=== PATIENT | female | born 1980 | race Caucasian/White ===

== ENCOUNTER → 2017-09-11 10:02 | Outpatient (CLI) | payer BC, SELFPAY ==
[2017-09-11 10:34] LABS: Urine Pregnancy, HCG Qual. Negative (Negative)
[2017-09-11 10:53] LABS: Basophils % 0.4 % (0.1-2.0); Eosinophils # 0.3 K/mm3 (0.0-0.4); Eosinophils % 3.3 % (0.1-12.0); Hematocrit 42.9 % (37.0-47.0); Hemoglobin 13.9 g/dL (12.2-16.2); Lymphocytes # 2.6 K/mm3 (0.7-4.5); Lymphocytes % 31.4 K/mm3 (10-50); Mean Corpuscular HGB Conc 32.5 g/dL (31.8-35.4); Mean Corpuscular Hemoglobin 29.1 pg (27.0-31.2); Mean Corpuscular Volume 89.4 fl (81-99); Mean Platelet Volume 7.8 fl (7.4-10.4); Monocytes # 0.4 K/mm3 (0.1-1.0); Monocytes % 4.7 % (1.7-9.3); Neutrophils # 4.9 K/mm3 (1.8-7.8); Neutrophils % 60.3 % (37.0-80.0); Platelet Count 302 K/mm3 (142-424); Red Cell Distribution Width 15.3 % (11.5-17.5); White Blood Count 8.1 K/mm3 (4.8-10.8)
[2017-09-13 06:24] LABS: Testosterone,Free 0.8 pg/mL (0.0-4.2)
[2017-09-14 13:48] LABS: Testosterone, Total, LC/MS 29.7 ng/dL (10.0-55.0)
== END ==
PROVIDERS: Visit Provider Obstetrics & Gynecology
DX: Z01.818 Encounter for other preprocedural examination (principal)
CPT/HCPCS: 36415; 81025; 84402; 85025

== ENCOUNTER → 2018-02-06 08:37 | Outpatient (CLI) | payer BC, SELFPAY ==
--- NOTE | 2018-02-06 08:44 | MR_ITS ---
MR shoulder LT wo con HISTORY:Left shoulder pain with limited range of motion ITS.REASON: ACUTE PAIN OF LEFT SHOULDER ORDERING PHYSICIAN: Kenya Chicas PATIENT AGE: 37 years Comparison: None TECHNIQUE: Standard multiplanar multiecho sequences are performed without contrast. FINDINGS: There is a low-lying acromion with hypertrophic changes along the undersurface of the acromion laterally with resultant subacromial stenosis of 4 mm with impingement upon the supraspinatus tendon. There is thickening of the supraspinatus tendon with increased T2 signal consistent with tendinopathy/tendinosis. There is a small focal area of increased T2 signal involving the posterior lateral aspect of the supraspinatus tendon which could represent a small intrasubstance tear. No evidence of a full-thickness tear. There is a small amount fluid in the subcutaneous acromial region. The glenoid yr appear intact. The bicipital tendon is in place There is mild thickening of the infraspinatus tendon as well. The subscapularis and teres minor tendons are intact. IMPRESSION: 1. Subacromial stenosis with minimal hypertrophic change along the infra aspect of the acromion with impingement upon the supraspinatus tendon with tendinopathy/tendinosis of the supraspinatus tendon and possible small intrasubstance tear. 2. No evidence of full-thickness tear.
--- NOTE | 2018-02-06 13:41 | MM_ITS ---
MM Dig mamm BI DX w/CAD, US breast RT complete, US breast LT complete INDICATION: Follow-up abnormal mammogram, follow-up probably benign findings ORDERING PHYSICIAN: Kenya Chicas PATIENT AGE: 37 years COMPARISON: None TECHNIQUE: 12/05/2016, 12/18/2016 FINDINGS: There is average fibroglandular tissue. Right breast: Asymmetric density is noted in the upper outer aspect of the right breast. This does appear to compress out and is felt to represent fibroglandular tissue. There are multiple benign-appearing calcifications of the right breast with no discrete mass or malignant appearing microcalcification Right breast ultrasound: There is some ductal ectasia at 7:00 near the nipple and in the retroareolar region. No suspicious mass evident. Small nodes are present in the axilla. Left breast: Benign-appearing calcifications. Asymmetric density is present in the medial aspect of the left breast which does appear to compress out as fibroglandular tissue. On spot compression view there was an additional area of asymmetry more anterior and medial which is felt to be due to fibroglandular tissue and did partially compress out on additional spot view Left breast ultrasound: There is some ductal ectasia near the nipple in the retroareolar region. No suspicious abnormalities evident IMPRESSION: Benign findings of the right breast. Probably benign findings left breast regarding asymmetric density in the medial aspect of the left breast. Recommend 6 month mammographic follow-up on the left No convincing evidence of malignancy BI-RADS Category: 3 Probably Benign Finding Short Term Follow-up RECOMMENDED FOLLOW-UP: 6M - 6 MONTH FOLLOW-UP (A letter has been sent to the patient regarding results of the study.)
== END ==
PROVIDERS: PCP Family Medicine; Visit Provider Nurse Practitioner
DX: M25.512 Pain in left shoulder (principal); R92.8 Other abnormal and inconclusive findings on diagnostic imaging of breast
CPT/HCPCS: 73221; 76641; 77066

== ENCOUNTER → 2018-03-01 10:04 | Outpatient (CLI) | payer BC, SELFPAY ==
--- NOTE | 2018-03-01 10:07 | XR_ITS ---
XR shoulder LT min 2V COMPARISON: MRI scan left shoulder 02/06/2018 HISTORY: Chronic left shoulder pain TECHNIQUE: 3 views left shoulder FINDINGS: The clavicle is intact and the AC joint appears normal. There is a slightly lateral downsloping acromion process but the hypertrophic changes described along the undersurface of the acromium on MRI scan are not appreciated on this modality. The humeral head and glenoid appear normal. There are no soft tissue calcifications. IMPRESSION: Slightly lateral downsloping acromion process which could predispose to mild impingement syndrome, otherwise negative study.
== END ==
PROVIDERS: PCP Nurse Practitioner; Visit Provider Orthopaedic Surgery
DX: M25.512 Pain in left shoulder (principal)
CPT/HCPCS: 73030

== ENCOUNTER → 2018-05-30 12:28 | Outpatient (CLI) | payer BC, SELFPAY ==
--- NOTE | 2018-05-30 12:35 | XR_ITS ---
XR chest 2V HISTORY: ITS.REASON: LT CHEST PRESSURE ORDERING PHYSICIAN: Kenya Chicas PATIENT AGE: 37 years COMPARISON: None FINDINGS: The cardiomediastinal silhouette and pulmonary vascularity are within normal limits. The lungs are clear without infiltrates, suspicious nodules, or pleural effusions. No acute bony abnormalities. IMPRESSION: Negative chest, no acute finding
== END ==
PROVIDERS: PCP Nurse Practitioner; Visit Provider Nurse Practitioner
DX: R07.89 Other chest pain (principal); R00.2 Palpitations
CPT/HCPCS: 71046; 93005; 93225; 93226

== ENCOUNTER → 2018-06-10 07:19 | Outpatient (CLI) | payer BC, SELFPAY ==
--- NOTE | 2018-06-10 07:21 | NM_ITS ---
History and Indications: Hypertension, chronic tobacco use, family history, chest pain, shortness of breath, syncope and fatigue Procedure: Patient exercised on Beni protocol 7 minutes and 15 seconds, resting heart rate was 75 bpm resting blood pressure 145/85, with exercise maximum heart rate achieved was 1 66 bpm which is greater than 85% of the maximum predicted heart rate and the blood pressure was 158/85. Test was started due to chest discomfort which resolving the recovery. Patient has adequate exercise capacity achieved 7.1mets of workload on treadmill, the blood pressure response to exercise was abnormal. Electrocardiogram: Resting electrocardiogram showed sinus rhythm, with exercise there is less than 1.[address] segment depression noted from the baseline EKG. The EKG portion of the exercise Myoview is negative for ischemia. Cardiac stress and resting SPECT images: Cardiac stress and resting SPECT were obtained using technetium 99 Myoview 31.0 mCi stress and 10.5 mCi at rest. Gated SPECT further analysis and calculation of the ejection fraction also done. Cardiac stress and resting SPECT images show a mild fixed defect in the anterior wall with normal contractility in the gated SPECT is likely secondary to soft tissue attenuation, no reversible ischemia seen. Computer derived ejection fraction 44% with no regional wall motion abnormality, right ventricle is normal size and contractility. Conclusion: 1. The EKG portion of the exercise Myoview is negative for ischemia, patient has adequate exercise capacity achieved 7.1mets of workload on treadmill, the blood pressure response to exercise was abnormal, patient complained of chest pain with exercise relieved with rest. 2. No scintigraphic evidence of reversible ischemia seen at this level of exercise, computer derived ejection fraction is 64% with no regional wall motion abnormality, right ventricle is normal size and contractility.
--- NOTE | 2018-06-10 07:37 | HMH.ITSHM ---
Current Home Medications as stated by this patient Chichi Harrison or appliance service representative. [][facility]
== END ==
PROVIDERS: PCP Family Medicine; Visit Provider Family Medicine
DX: R07.89 Other chest pain (principal); R00.2 Palpitations
CPT/HCPCS: 78451; 93017; A9502

== ENCOUNTER → 2018-06-21 13:30 | Outpatient (CLI) | payer BC, SELFPAY ==
--- NOTE | 2018-06-21 13:33 | CA_ITS ---
PROCEDURE: 2-D M-mode and color Doppler study INDICATIONS FOR THE TEST: Chest pain+ COPD Heart Murmur Tobacco Smoking+ Palpitations+ Fatigue+ Syncope Edema Hypertension+Diabetes Mellitus Rheumatic Fever SOB+OLIVAS+Obesity Hyperlipidemia Family History HD+ Additional History Dizziness PATIENT INFORMATION HEIGHT: 60 WEIGHT: 220 GENDER: Female B/P: 122/87 2-D/M-MODE INTERPRETATION: 2-D MEASUREMENTS OBSERVED VALUES IN CMS Right Ventricular Dimension (RVDd) 2.0 Interventricular Septum (Thickness)(IVsd) 0.9 Left Ventricular Internal Dimensions(LVIDd) 4.1 Left Ventricular Posterior Wall (Thickness)(LVPWd) 0.9 Aortic Root 3.0 Aortic Cusp Separation 2.3 Left Atrial Dimensions (LAD) 3.4 2D 1. Left atrium is normal size, left ventricle is normal size, there is no concentric left ventricular hypertrophy, visually estimated ejection fraction 55% with no wall motion abnormality. 2. The right atrium and right ventricle are normal size and contractility. 3. The aortic, mitral and tricuspid valvular grossly normal. 4. The pulmonic valve is poorly visualized. 5. No significant pericardial effusion noted. DOPPLER INTERROGATION: Doppler interrogation of the aortic, mitral and tricuspid valvular presence of mild mitral and tricuspid regurgitation, tricuspid regurgitation jet velocity is inadequate for calculation of the right ventricular systolic pressure, diastolic parameters are within normal range. CONCLUSION: 1. Normal left ventricular size, preserved left ventricular systolic function, visually estimated ejection fraction 55% with no regional wall motion abnormality, diastolic parameters are within normal range. 2. Mild mitral and tricuspid regurgitation 3. No significant pericardial effusion.
== END ==
PROVIDERS: PCP Family Medicine; Visit Provider Nurse Practitioner
DX: R07.89 Other chest pain (principal); R00.2 Palpitations
CPT/HCPCS: 93306

== ENCOUNTER → 2018-10-16 10:02 | Outpatient (CLI) | payer BC, SELFPAY ==
--- NOTE | 2018-10-16 10:08 | MR_ITS ---
MR head/brain wo/w con HISTORY: Headache, visual changes with dizziness ITS.REASON: VISION CHANGES ORDERING PHYSICIAN: Joaquín Chaparro MD PATIENT AGE: 38 years Comparison: None TECHNIQUE: Standard multiplanar multiecho sequences are performed without and with gadolinium enhancement. FINDINGS: No midline shift, mass effect, intracranial hemorrhage, or hydrocephalus is evident. The cerebellopontine angles, cerebellum, and brainstem have an unremarkable appearance. No enhancing lesions are apparent. The pituitary, corpus callosum, optic chiasm, and craniocervical junction have an unremarkable appearance. There is normal ramirez-white matter differentiation. No intra or extra-axial mass is evident. No sinus air-fluid level or mastoid effusion. There is minimal mucosal thickening of left maxillary sinus. IMPRESSION: Essentially negative MRI of the brain without and with contrast
--- NOTE | 2018-10-16 11:20 | HMH.ITSHM ---
Current Home Medications as stated by this patient Chichi Harrison or retail representative. [][facility]
== END ==
PROVIDERS: PCP Family Medicine; Visit Provider Family Medicine
DX: H53.9 Unspecified visual disturbance (principal)
CPT/HCPCS: 70553; A9576

== ENCOUNTER → 2018-10-24 16:31 | Outpatient (CLI) | payer BC, SELFPAY | PROVIDERS: PCP Family Medicine; Visit Provider Family Medicine | DX: G47.33 Obstructive sleep apnea (adult) (pediatric) (principal); R06.83 Snoring; R40.0 Somnolence | CPT/HCPCS: 95806 ==

== ENCOUNTER → 2020-02-11 15:51 | Outpatient (CLI) | payer BC, SELFPAY ==
--- NOTE | 2020-02-11 15:56 | XR_ITS ---
PROCEDURE: XR SHOULDER LT MIN 2V CLINICAL INDICATION: PAIN COMPARISON: CR SHOULDCMLT XR shoulder LT min 2V from 03/01/2018 FINDINGS: No fracture or dislocation. No lytic or blastic change. There is normal mineralization. The joint spaces are well-preserved. No significant degenerative/arthritic changes. No erosive changes evident. Other findings:There is a small bone island in the humeral head on the left IMPRESSION: No acute findings. Dictated by: Andrew Hay MD 02/11/2020 16:03 Andrew Hay MD in [place] 02/11/2020 16:03
== END ==
PROVIDERS: PCP Nurse Practitioner; Visit Provider Nurse Practitioner
DX: M25.512 Pain in left shoulder (principal)
CPT/HCPCS: 73030

== ENCOUNTER → 2020-03-02 12:21 | Outpatient (CLI) | payer BC, SELFPAY ==
--- NOTE | 2020-03-02 12:25 | XR_ITS ---
PROCEDURE: XR SHOULDER LT MIN 2V CLINICAL INDICATION: left shoulder pain COMPARISON: CR SHOULDCMLT XR shoulder LT min 2V from 03/01/2018 CR XR SHOULDER LT MIN 2V from 02/11/2020 FINDINGS: No fracture or dislocation. No lytic or blastic change. There is normal mineralization. The AC joint has an unremarkable appearance. There are mild osteoarthritic changes of the glenohumeral joint. No significant subacromial stenosis Other findings:None. IMPRESSION: Mild osteoarthritis of the glenohumeral joint Dictated by: Andrew Hay MD 03/02/2020 16:31 Andrew Hay MD in [place] 03/02/2020 16:31
== END ==
PROVIDERS: PCP Nurse Practitioner; Visit Provider Orthopaedic Surgery
DX: M25.512 Pain in left shoulder (principal)
CPT/HCPCS: 73030

== ENCOUNTER → 2020-06-01 07:58 | Outpatient (CLI) | payer BC, SELFPAY ==
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
== END ==
PROVIDERS: PCP Nurse Practitioner; Visit Provider Orthopaedic Surgery
DX: M25.512 Pain in left shoulder (principal); G89.29 Other chronic pain
CPT/HCPCS: 73221

== ENCOUNTER → 2020-10-08 10:29 | Outpatient (CLI) | payer BC, SELFPAY ==
--- NOTE | 2020-10-08 10:33 | MR_ITS ---
PROCEDURE: MR HEAD/BRAIN WO/W CON CLINICAL INDICATION: TRANSIENT VISION DISTURBANCE OF BOTH EYES TECHNIQUE: Routine multiplanar multi echo sequences are performed without gadolinium enhancement. FINDINGS: No midline shift, mass effect, intracranial hemorrhage, or hydrocephalus. No evidence of acute infarction. The cerebellopontine angles, cerebellum, and brainstem have an unremarkable appearance. Unremarkable appearing white matter. No enhancing lesions. The hippocampal gyri have an unremarkable appearance. The pituitary, optic chiasm, corpus callosum, and craniocervical junction have an unremarkable appearance. Unremarkable appearing orbits. No mastoid effusion or sinus air-fluid level. IMPRESSION: Negative MRI of the brain without and with contrast. Dictated by: Andrew Hay MD 10/11/2020 10:16 Andrew Hay MD in [place] 10/11/2020 10:16
--- NOTE | 2020-10-08 10:33 | MR_ITS ---
PROCEDURE: MR ANGIO HEAD WO CON CLINICAL INDICATION: TRANSIENT VISION DISTURBANCE OF BOTH EYES COMPARISON: No exams were available for comparison TECHNIQUE: 3D [id number] images are obtained without contrast with multi slab reformats FINDINGS: No aneurysm, AVM, or major intracranial occlusive process is evident. There is persistent origin of the right posterior cerebral artery with a small proximal left posterior cerebral artery and a prominent left posterior communicating artery. IMPRESSION: No aneurysm AVM or major intracranial occlusive process apparent. Dictated by: Andrew Hay MD 10/11/2020 10:24 Andrew Hay MD in [place] 10/11/2020 10:24
== END ==
PROVIDERS: PCP Nurse Practitioner; Visit Provider Nurse Practitioner
DX: H53.8 Other visual disturbances
CPT/HCPCS: 70544; 70553; A9576

== ENCOUNTER → 2020-10-15 14:49 | Outpatient (CLI) | payer BC, SELFPAY ==
--- NOTE | 2020-10-15 14:51 | MM_ITS ---
PROCEDURE INFORMATION: Exam: MG Screening 3D Mammography Exam date and time: 10/15/2020 2:51 PM Age: 40 years old Clinical indication: Encounter for screening mammogram for malignant neoplasm of breast TECHNIQUE: Imaging protocol: Screening tomosynthesis and 2D mammography including computer-aided detection (CAD) when performed. COMPARISON: 1. MG DXBI MM Dig mamm BI DX w/CAD 02/06/2018 1:56 PM 2. MG [id number] DIG MAMM-DX UNI A/VW-RT W/CAD 12/18/2016 1:10 PM FINDINGS: MAMMOGRAPHY: Breast composition: The breast tissue is heterogeneously dense, which may obscure small masses. Mass: None. Architectural distortion: None. Calcifications: No suspicious calcifications. Asymmetric density: None. Skin thickening: None. Axillary adenopathy: None. IMPRESSION: No mammographic evidence of malignancy. Annual screening is recommended unless otherwise clinically indicated. ASSESSMENT: BI-RADS Category 1: Negative
== END ==
PROVIDERS: PCP Nurse Practitioner; Visit Provider Nurse Practitioner
DX: Z12.31 Encounter for screening mammogram for malignant neoplasm of breast (principal)
CPT/HCPCS: 77063; 77067

== ENCOUNTER 2021-01-18 14:43 | Emergency (ER) | payer BC, SELFPAY ==
[2021-01-18 15:25] VITALS: BP 167/103; PULSE 94; RESP 18; TEMP 37.2; O2SAT 97; BMI 43.9
[2021-01-18 15:46] LABS: Adenovirus,PCR Not Detected (NotDetected); Bordetella Pertussis Not Detected (NotDetected); Chlamydophila Pneumoniae, PCR Not Detected (NotDetected); Coronavirus 19, PCR Not Detected (NotDetected); Coronavirus 229E Not Detected (NotDetected); Coronavirus NL63 Not Detected (NotDetected); Coronavirus OC43 Not Detected (NotDetected); Coronovirus HKU1,PCR Not Detected (NotDetected); Human Metapneumovirus Not Detected (NotDetected); Influenza A, PCR Not Detected (NotDetected); Influenza AH1, 2009 Not Detected (NotDetected); Influenza AH1, PCR Not Detected (NotDetected); Influenza AH3,PCR Not Detected (NotDetected); Influenza B, PCR Not Detected (NotDetected); Mycoplasma Pneumoniae, PCR Not Detected (NotDetected); Parainfluenza 1, PCR Not Detected (NotDetected); Parainfluenza 2, PCR Not Detected (NotDetected); Parainfluenza 3, PCR Not Detected (NotDetected); Parainfluenza 4, PCR Not Detected (NotDetected); Respiratory Syncytial Virus Not Detected (NotDetected)
[2021-01-18 15:49] LABS: UTC Strep Screen (Rapid) Negative (Negative)
--- NOTE | 2021-01-18 16:28 | HMH.EDUTC ---
[facility] [place] Disposition Clinical Impression: Bronchitis Pharyngitis Qualifiers: Pharyngitis/tonsillitis etiology: unspecified etiology Qualified Code(s): J02.9 - Acute pharyngitis, unspecified Disposition: Home, Self-Care Condition on Discharge: Good Instructions: DI for COVID-19 (Suspected or Confirmed ), Preventing the Spread of Coronavirus Discharge Instructions Additional Instructions: Drink plenty of fluids. Take tylenol or ibuprofen for pain or fever. Take the medications as directed. Follow up with your regular doctor. GO TO THE ER FOR ANY WORSENING SYMPTOMS Quarantine until you know the results of your covid-19 test. If it is positive, the health department should call you and give you further instructions about your length of Quarantine and other things. Notify your school or workplace of your results and follow their instructions regarding return to work/school. Prescriptions: Benzonatate [Tessalon Perle 100mg Cap] 100 mg PO TIDP PRN #30 cap PRN Reason: Cough Transmission Status: Received by [id number] Azithromycin [Z-Ricardo 250mg Tab*] 250 mg PO UD DOSE PK #6 tab Transmission Status: Received by [id number] Referrals: Kenya Chicas APRN [Primary Care Provider] - Forms: Work/School Release Time of Disposition: 16:36 Medical Decision Making - Medical Records Medical records reviewed: No: I reviewed the patient's medical records. - Slim Inquiry Pt receiving controlled substance: No Vital Signs: 01/18/21 15:25 01/18/21 16:41 Temperature 99.0 F 99.0 F Temperature Source Oral Pulse Rate 94 H Pulse Rate [Right Brachial] 94 H Respiratory Rate 18 18 Blood Pressure 167/103 H Blood Pressure [Right Arm] 167/103 H Blood Pressure Mean [Right Arm] 124 Blood Pressure Source [Right Arm] Automatic Cuff Blood Pressure Position [Right Arm] Sitting 02 Sat by Pulse Oximetry 97 Oxygen Delivery Method Room Air - Lab Data Lab Results 01/18/21 15:35: Chlamy pneumoniae PCR Not detected, Adenovirus (PCR) Not detected, B. pertussis DNA (PCR) Not detected, Coronavirus OC43 (PCR) Not detected, Coronavirus HKU1 (PCR) Not detected, Coronavirus 229E (PCR) Not detected, SARS-CoV-2 (PCR) Not detected, Coronavirus NL63 (PCR) Not detected, Human Metapneumovir PCR Not detected, Influenza A (H1) PCR Not detected, Influ A (H1N1/09) PCR Not detected, Influenza A (H3) PCR Not detected, Influenza Type A (PCR) Not detected, Influenza Type B (PCR) Not detected, M. pneumoniae (PCR) Not detected, Parainfluenza 1 (PCR) Not detected, Parainfluenza 2 (PCR) Not detected, Parainfluenza 3 (PCR) Not detected, Parainfluenza 4 (PCR) Not detected, RSV (PCR) Not detected, Entero/Rhino (PCR) Detected A 01/18/21 15:43: Strep Scn Rapid Clinic Negative Orders (Tests/Meds): ORDERS Category Date Time Status Strep Screen Confirmation Stat Micro 01/18/21 15:43 Received [facility] [place] HPI - General Stated complaint: sor throat, weakness, congestion Time Seen by Provider: 01/18/21 16:28 Mode of Arrival: Ambulatory Source of Information: Patient Limitations: No Limitations Description of Symptoms (Recalled from Triage Doc. by RN): PATIENT C/O WEAKNESS, SORE THROAT, AND BODY ACHES SINCE SUNDAY MORNING. RECENTLY EXPOSED TO RHINOVIRUS HEENT Symptoms (Recalled from RN notes): Yes Resp Symptoms (Recalled from RN notes): No Skin Symptoms (Recalled from RN notes): No MS Symptoms (Recalled from RN notes): No Functional Status (Recalled from RN notes): WNL - History of Present Illness Provider Complaint: She states that she has felt bad for the past 2 days. She has had cough, congestion, body ache and sore throat. She has had the first shot of the pfizer vaccine. Her next shot is due next week. - Related Data Home Medications Medication Instructions Recorded Confirmed lisinopril 10 mg tablet 10 mg PO DAILY 06/27/18 06/10/20 sertraline 100 mg tablet 150 mg PO DAILY tab 06/27/18 06/10/20 metoprolol succinate
[2021-01-18 16:41] VITALS: BP 167/103; PULSE 94; RESP 18; TEMP 37.2; O2SAT 97
[2021-01-18 20:29] LABS: Rhinovirus/Enterovirus Detected (NotDetected)
== END 2021-01-18 16:45 | disposition home or self-care (01) ==
PROVIDERS: Emergency Provider Nurse Practitioner Family; PCP Nurse Practitioner
DX: J02.9 Acute pharyngitis, unspecified (principal); I10 Essential (primary) hypertension; F33.1 Major depressive disorder, recurrent, moderate; F17.210 Nicotine dependence, cigarettes, uncomplicated; Z88.0 Allergy status to penicillin
CPT/HCPCS: 87581; 87633; 87798; 87880; 99203; G0463

== ENCOUNTER → 2021-05-31 12:46 | Outpatient (CLI) | payer BC, SELFPAY | PROVIDERS: PCP Nurse Practitioner; Visit Provider Nurse Practitioner | DX: U07.1 COVID-19 (principal) | CPT/HCPCS: C9803; U0003; U0005 ==

== ENCOUNTER 2021-10-31 17:31 | Emergency (ER) | payer BC, SELFPAY ==
[2021-10-31 18:32] VITALS: BP 158/72; PULSE 85; RESP 18; TEMP 37.1; O2SAT 98; BMI 41.5
--- NOTE | 2021-10-31 18:36 | HMH.EDUTC ---
[facility] Clinical Impression: Female hirsutism UTI (urinary tract infection) Qualifiers: Urinary tract infection type: site unspecified Hematuria presence: with hematuria Qualified Code(s): N39.0 - Urinary tract infection, site not specified Disposition: Home, Self-Care Condition on Discharge: Good Instructions: Urinary Tract Infection, Urine Culture, DI for Urinary Tract Infection (UTI), Phenazopyridine Additional Instructions: Drink plenty of fluids. Take tylenol or ibuprofen for pain or fever. Take the medications as directed. Follow up with your regular doctor. GO TO THE ER FOR ANY WORSENING SYMPTOMS The pyridium will make your urine turn orange, this is an expected side effect. It will stain your clothes if it comes into contact with them. We will culture the urine. That will tell what bacteria is causing your infection and which antibiotics will treat it best. Sometimes the first antibiotic we prescribe turns out to not work against different bacteria. So, make sure you follow up within 3 days if you are not getting better. Prescriptions: Ondansetron [Zofran 4mg ODT] 4 mg PO Q8HP PRN #20 tab PRN Reason: Nausea Transmission Status: Received by [id number] Ciprofloxacin HCl [Cipro 500mg Tab] 500 mg PO BID 7 Days #14 tab Transmission Status: Received by [id number] Phenazopyridine HCl [Pyridium 200mg Tablet] 200 pow PO TID #6 tab Transmission Status: Received by [id number] Referrals: Kenya Chicas APRN [Primary Care Provider] - Forms: Work/School Release Time of Disposition: 18:41 Medical Decision Making - Medical Records Medical records reviewed: No: I reviewed the patient's medical records. - Slim Inquiry Pt receiving controlled substance: No Vital Signs: 10/31/21 18:32 10/31/21 18:45 Temperature 98.7 F 98.7 F Temperature Source Oral Pulse Rate 85 Pulse Rate [Left] 85 Respiratory Rate 18 18 Blood Pressure 158/72 H Blood Pressure [Right Arm] 158/72 H Blood Pressure Mean [Right Arm] 100 02 Sat by Pulse Oximetry 98 - Lab Data Lab results reviewed: Yes: I reviewed the patient's lab results. Lab Results 10/31/21 18:38: Urine Color Yellow, Urine Appearance Cloudy, Urine pH 5.5, Ur Specific [place] 1.025, Urine Protein 1+, Urine Glucose (UA) Negative, Urine Ketones Negative, Urine Blood 4+, Urine Nitrate Negative, Urine Bilirubin Negative, Urine Urobilinogen 0.2, Ur Leukocyte Esterase 1+ A Orders (Tests/Meds): ORDERS Category Date Time Status Urine Culture Stat Micro 10/31/21 18:26 Results [facility] - General Stated complaint: POSSIBLE BLADDER INFECTION Time Seen by Provider: 10/31/21 18:36 Description of Symptoms (Recalled from Triage Doc. by RN): patient comes in for possible bladder infection. patient complains of burning and dysuria. symptoms began yesterday HEENT Symptoms (Recalled from RN notes): No Resp Symptoms (Recalled from RN notes): No Skin Symptoms (Recalled from RN notes): No MS Symptoms (Recalled from RN notes): No Functional Status (Recalled from RN notes): wnl - History of Present Illness Provider Complaint: She states that for the past 2 days she has had worsening dysuria, urinary frequency and low back pain. - Related Data Home Medications Medication Instructions Recorded Confirmed cetirizine 10 mg tablet 10 mg PO tab 07/04/21 07/04/21 valsartan 320 1 tab PO tab 07/04/21 07/04/21 mg-hydrochlorothiazide 12.5 mg tablet Previous Rx's Medication Instructions Recorded omeprazole 40 mg capsule,delayed 40 mg PO DAILY #30 cap 06/27/18 release Ciprofloxacin HCl [Cipro 500mg 500 mg PO BID 7 Days #14 tab 10/31/21 Tab] Ondansetron [Zofran 4mg ODT] 4 mg PO Q8HP PRN #20 tab 10/31/21 Phenazopyridine HCl [Pyridium 200 pow PO TID #6 tab 10/31/21 200mg Tablet] Allergies Allergy/AdvReac Type Severity Reaction Status Date / Time Penicillins Allergy Mi
[2021-10-31 18:45] VITALS: BP 158/72; PULSE 85; RESP 18; TEMP 37.1
[2021-10-31 19:06] LABS: Apearance,Urine Cloudy (Clear); Color,Urine Yellow (Yellow); PH,Urine 5.5 (5.0-8.5)
[2021-10-31 19:07] LABS: Bilirubin,Urine Negative (Negative); Blood, Urine 4+ (Negative); Glucose,Urine (UA) Negative (Negative); Ketones,Urine Negative (Negative); Protein,Urine 1+ (Negative); Specific Gravity, Urine 1.025 (1.005-1.030); UTC Leukocyte Esterase,Urine 1+ (Negative); UTC Nitrate,Urine Negative (Negative); Urobilinogen,Urine 0.2 EU/dl (0.2)
== END 2021-10-31 18:46 | disposition home or self-care (01) ==
PROVIDERS: Emergency Provider Nurse Practitioner Family; PCP Nurse Practitioner
DX: L68.0 Hirsutism (principal); N39.0 Urinary tract infection, site not specified; Z88.0 Allergy status to penicillin; I10 Essential (primary) hypertension; F32.A Depression, unspecified
CPT/HCPCS: 81003; 87086; 87088; 87186; 99212; G0463

== ENCOUNTER 2022-01-18 18:28 | Emergency (ER) | payer BC, SELFPAY ==
--- NOTE | 2022-01-18 19:22 | EXP.UTC ---
Discharge Plan Disposition Patient Disposition: Home, Self-Care Condition: Good Prescriptions Prescriptions: New azithromycin [Zithromax] 250 mg tablet 250 mg PO UD DOSE PK Qty: 6 0RF Rx Instructions: Take two (2) tablets today, then one (1) tablet days #2 thru #5 benzonatate [benzonatate] 100 mg capsule 100 mg PO TIDP PRN (Reason: Cough) Qty: 30 0RF methylprednisolone 4 mg Tablets,Dose Pack 4 mg PO DIRECTED Qty: 21 0RF No Action omeprazole 40 mg capsule,delayed release(DR/EC) 40 mg PO DAILY Qty: 30 3RF cetirizine 10 mg tablet 10 mg PO Label Comments: TAKE 1 TABLET BY MOUTH EVERY DAY valsartan-hydrochlorothiazide 320-12.5 mg tablet 1 tab PO Label Comments: TAKE 1 TABLET BY MOUTH EVERY DAY phenazopyridine 200 MG tablet 200 pow PO TID Qty: 6 0RF ciprofloxacin HCl 500 MG tablet 500 mg PO BID 7 Days Qty: 14 0RF ondansetron 4 MG tablet,disintegrating 4 mg PO Q8HP PRN (Reason: Nausea) Qty: 20 0RF Referrals Follow up/Referrals: Kenya Chicas APRN [Primary Care Provider] - See instructions Activity Restrictions/Add. Instructions Additional Instructions/Restrictions: Drink plenty of fluids. Take tylenol or ibuprofen for pain or fever. Take the medications as directed. Follow up with your regular doctor. GO TO THE ER FOR ANY WORSENING SYMPTOMS Clinical Impressions Clinical Impression: Sinusitis Instructions Patient Instructions: Sinusitis, DI for Sinusitis Discharge ED Provider: Rene Hutchison [facility] General Stated complaint: SOB,Cough Congestion Time Seen by Provider: 01/18/22 19:22 History of Present Illness Provider Complaint: She c/o cough, chest congestion and malaise for the past 2 days. Related Data Home Medications Medication Instructions Recorded Confirmed cetirizine 10 mg tablet 10 mg PO 07/04/21 07/04/21 valsartan 320 1 tab PO 07/04/21 07/04/21 mg-hydrochlorothiazide 12.5 mg tablet Previous Rx's Medication Instructions Recorded omeprazole 40 mg capsule,delayed 40 mg PO DAILY #30 caps 06/27/18 release ciprofloxacin HCl 500 mg tablet 500 mg PO BID 7 days #14 tabs 10/31/21 ondansetron 4 mg disintegrating 4 mg PO Q8HP PRN Nausea #20 tabs 10/31/21 tablet phenazopyridine 200 mg tablet 200 pow PO TID #6 tabs 10/31/21 azithromycin 250 mg tablet 250 mg PO UD DOSE PK #6 tabs 01/18/22 (Zithromax) benzonatate 100 mg capsule 100 mg PO TIDP PRN Cough #30 caps 01/18/22 methylprednisolone 4 mg tablets in 4 mg PO DIRECTED #21 tabs 01/18/22 a dose pack Allergies Allergy/AdvReac Type Severity Reaction Status Date / Time Penicillins Allergy Mild Hives Verified 01/18/22 19:42 PFSH PFSH Social History Smoking Status: Former smoker pack-years: 23 second hand exposure: Yes alcohol intake: never substance use type: denies use current occupational status: employed Travel in the last 8 weeks: None household members: spouse housing: house current occupation: [employer] current occupational exposures/hazards: No caffeine: Yes ROS Obtained: Yes All systems reviewed & no additional complaints except as documented Constitutional Constitutional: Reports chills and Reports fever(s) Eyes Eyes: Denies eye discharge ENT Ears, Nose, Mouth, and Throat: Reports as per HPI Cardiovascular Cardiovascular: Denies chest pain Respiratory Respiratory: Denies chest congestion and Reports cough Gastrointestinal Gastrointestingal: Reports nausea; Denies abdominal pain, constipation, cramping, diarrhea or vomiting Musculoskeletal Musculoskeletal: Denies arthralgias Integumentary/Breasts Skin/Breast: Denies rash Neurologic Neurologic: Denies paresthesias Physical Exam General General appearance: alert and in no apparent distress Head Head exam: atraumatic, normocephalic and normal inspection Eye Eye exam: Present normal appea
[2022-01-18 19:40] VITALS: BP 120/80; PULSE 92; RESP 18; TEMP 36.8; O2SAT 100; BMI 43.0
[2022-01-18 20:10] VITALS: BP 120/80; PULSE 92; RESP 18; TEMP 36.8
== END 2022-01-18 20:11 | disposition home or self-care (01) ==
PROVIDERS: Emergency Provider Nurse Practitioner Family; PCP Nurse Practitioner
DX: J32.9 Chronic sinusitis, unspecified (principal)
CPT/HCPCS: 96372; 99212; G0463

== ENCOUNTER → 2022-02-07 08:22 | Outpatient (CLI) | payer BC, SELFPAY ==
[2022-02-07 18:46] LABS: Basophils # 0.1 K/mm3 (0-0.2); Basophils % 1.1 % (0.1-2.0); Eosinophils # 0.2 K/mm3 (0.0-0.4); Eosinophils % 2.2 % (0.1-12.0); Hematocrit 44.2 % (37.0-47.0); Hemoglobin 14.1 g/dL (12.2-16.2); Lymphocytes # 2.4 K/mm3 (0.7-4.5); Lymphocytes % 26.1 % (10-50); Mean Corpuscular HGB Conc 31.8 g/dL (31.8-35.4); Mean Corpuscular Hemoglobin 30.2 pg (27.0-31.2); Mean Corpuscular Volume 94.9 fl (81-99); Mean Platelet Volume 9.4 fl (7.4-10.4); Monocytes # 0.4 K/mm3 (0.1-1.0); Monocytes % 3.9 % (1.7-9.3); Neutrophils # 6.1 K/mm3 (1.8-7.8); Neutrophils % 66.7 % (37.0-80.0); Platelet Count 401 K/mm3 (142-424); Red Blood Count 4.65 M/mm3 (4.20-5.40); Red Cell Distribution Width 14.2 % (11.5-17.5); White Blood Count 9.1 K/mm3 (4.8-10.8)
[2022-02-07 18:47] LABS: Alanine Aminotransferase 23 U/L (12-78); Albumin Level 3.6 g/dl (3.5-5.0); Albumin/Globulin Ratio 1.1 (1.1-1.8); Alkaline Phosphatase 91 U/L (38-126); Anion Gap 11.6 mEq/L (5-15); Aspartate Amino Transferase 24 U/L (14-36); Blood Urea Nitrogen 8 mg/dl (7-17); Calcium 9.1 mg/dl (8.4-10.2); Carbon Dioxide 27 mmol/L (22.0-30.0); Chloride 104 mmol/L (98-107); Chol/HDL Ratio 5.8 (1-3.5); Cholesterol 220 mg/dl (140-200); Estimated Glomerular Filt Rate 110 ml/min (>60); GFR (African American) 133 ML/MIN (>60); Globulin 3.2 g/dL (1.3-3.2); Glucose 106 mg/dl (74-100); HDL Cholesterol 38 mg/dl (40-60); Potassium 4.6 mmoL/L (3.5-5.1); Sodium 138 mmol/L (136-145); Total Protein,Serum 6.8 g/dl (6.3-8.2); Triglycerides 207 mg/dl (30-150); VLDL Cholesterol 41 mg/dL (0-40)
[2022-02-07 18:51] LABS: Bilirubin,Total < 0.1 mg/dl (0.2-1.3)
[2022-02-07 18:58] LABS: Direct LDL Cholesterol 148.98 mg/dL (100-129)
[2022-02-07 19:18] LABS: Thyroid Stimulating Hormone 1.54 uIU/mL (0.465-4.68)
[2022-02-07 19:37] LABS: Vitamin B12 694 pg/mL (239-931)
[2022-02-13 14:10] LABS: 1,25 Dihydroxy Vitamin D 31 pg/mL (.); 1,25-Dihydroxy, Vitamin D-2 <10 pg/mL (.); 1,25-Dihydroxy, Vitamin D-3 31 pg/mL (.)
== END ==
PROVIDERS: PCP Nurse Practitioner; Visit Provider Nurse Practitioner
DX: I10 Essential (primary) hypertension (principal); R73.01 Impaired fasting glucose; E66.9 Obesity, unspecified; Z68.41 Body mass index [BMI] 40.0-44.9, adult; Z79.84 Long term (current) use of oral hypoglycemic drugs
CPT/HCPCS: 80053; 80061; 82607; 82652; 84443; 85025

== ENCOUNTER → 2022-02-23 12:50 | Outpatient (CLI) | payer BC, SELFPAY ==
--- NOTE | 2022-02-23 12:51 | MM_ITS ---
PROCEDURE INFORMATION: Exam: MG Bilateral Screening 3D Mammography Exam date and time: 02/23/2022 12:55 PM Age: 41 years old Clinical indication: Screening examination TECHNIQUE: Imaging protocol: Bilateral Screening tomosynthesis and 2D mammography including computer-aided detection (CAD) when performed. COMPARISON: 1. MG MM DIG SCREENING MAMM BI W/CAD 10/15/2020 2:57 PM 2. MG DXBI MM Dig mamm BI DX w/CAD 02/06/2018 1:56 PM FINDINGS: MAMMOGRAPHY: Breast composition: There are scattered areas of fibroglandular density. Mass: None. Architectural distortion: None. Calcifications: No suspicious calcifications. Asymmetric density: None. Skin thickening: None. Axillary adenopathy: None. IMPRESSION: No mammographic evidence of malignancy. Annual screening is recommended unless otherwise clinically indicated. ASSESSMENT: BI-RADS Category 1: Negative
== END ==
PROVIDERS: PCP Nurse Practitioner; Visit Provider Nurse Practitioner
DX: Z12.31 Encounter for screening mammogram for malignant neoplasm of breast (principal)
CPT/HCPCS: 77063; 77067

== ENCOUNTER 2022-03-16 07:40 | Day surgery (SDC) | payer BC, SELFPAY ==
[2022-02-27 08:11] VITALS: BMI 42.5
[2022-03-16 08:10] VITALS: BP 114/71; PULSE 77; RESP 18; TEMP 36.2; O2SAT 95
[2022-03-16 08:20] LABS: Urine Pregnancy, HCG Qual. Negative (Negative)
--- NOTE | 2022-03-16 08:34 | EXP.ANES.CKL ---
[facility] Medical History Gastroesophageal reflux disease Hyperlipidemia Hypertension Obesity Tobacco dependence syndrome Surgical History History of appendectomy History of History of colonoscopy History of surgery of uterus Surgical history of tubal ligation Family History Other Cancer Coronary artery disease Diabetes Social History Smoking Status: Former smoker pack-years: 23 second hand exposure: Yes alcohol intake: never substance use type: denies use current occupational status: employed Travel in the last 8 weeks: Inside the [place] household members: spouse housing: house current occupation: [employer] current occupational exposures/hazards: No caffeine: Yes special idalia needs: No agree to transfusion: No do you feel safe at home: Yes victim of physical abuse: No victim of emotional abuse: No victim of sexual abuse: No would you like helpful sources: No [facility] Anesthesia Checklist Patient Identification Patient Identification: Verbal (Name & ) Structural Data Admitted From: Home Planned Operative Procedure/s: egd,colonoscopy Consent for Planned Operative Procedure(s) Verified: Yes Additional verifications Anesthesia Reactions: No Hx Blood Transfusions: No Blood Transfusion Reaction: No Airway Assessment TMJ Mobility Assessed: Yes Dentition: Good Dentition Neurological Assessment Level of Consciousness: Awake, Alert and Appropriate Anesthesia Plan Anesthesia Risk discussed: Yes Anesthesia Plan: Verified ASA Class: II Anesthesia Type: MAC
[2022-03-16 08:53] VITALS: O2SAT 95
--- NOTE | 2022-03-16 09:13 | HMH.SCOPE ---
Procedure: Date: 03/16/22 Patient Date of :: 1980 Procedure Performed:: EGD Indications:: Chronic GERD Performing Provider:: Verito Sage MD Referring Provider:: Kenya Chicas APRN Sedation:: Propofol Procedure:: The gastroscope was gently passed through the incisoral orifice into the oral cavity and under direct visualization the esophagus was intubated. The endoscope was passed down the esophagus, through the stomach, and into the duodenum. Color, texture, mucosa, and anatomy of the esophagus, stomach, and duodenum were carefully examined with the scope. Findings:: Oropharynx: normal Esophagus: normal EG Junction: intact at 40 cm, mild grade A reflux esophagitis Cardia: normal Fundus: normal Body: normal Antrum: normal Duodenal bulb: normal Duodenum (second and third portion): normal Impression: Mild grade A reflux esophagitis Recommendations:: Conservative therapy with PPI as needed Complications:: None Estimated blood obtained (mL): 0
--- NOTE | 2022-03-16 09:17 | HMH.SCOPE ---
Procedure: Date: 03/16/22 Patient Date of :: 1980 Procedure Performed:: Screening colonoscopy Indications:: Colon cancer screening Performing Provider:: Verito Sage MD Referring Provider:: Kenya Chicas APRN Sedation:: Propofol Procedure:: After placing the patient in the left lateral decubitus position, the colonoscopy was gently inserted into the rectum and under direct visualization advanced to the cecum which was identified by transillumination in the right lower quadrant, identification of the ileocecal valve, appendiceal orifice, and cecal strap. Color, texture, mucosa, and anatomy of the colon were carefully examined with the scope. Findings:: Anal canal: normal Rectum: normal Sigmoid colon: normal without polyps or inflammatory changes Descending colon: normal mucosa, 0.5 adenomatous polyp identified, removed with use of snare Splenic flexure: normal Transverse colon: normal without polyps or inflammatory changes Hepatic flexure: normal Ascending colon: normal without polyps or inflammatory changes Cecum: normal Terminal ileum: not visualized Impression: Polyp, decending colon Specimens:: Polyp from descending colon Recommendations:: Repeat follow up examination in about THREE years or so, sooner if clinically indicated. Complications:: None Estimated blood obtained (mL): 0
[2022-03-16 09:27] VITALS: BP 100/64; PULSE 94; RESP 16; TEMP 36.6; O2SAT 95
[2022-03-16 09:34] VITALS: BP 98/64; PULSE 82; RESP 16; TEMP 36.6; O2SAT 93
[2022-03-16 09:37] VITALS: BP 104/73; PULSE 76; RESP 18; TEMP 36.6; O2SAT 97
[2022-03-16 09:55] VITALS: BP 101/64; PULSE 65; RESP 18; TEMP 36.6; O2SAT 99
[2022-03-16 18:29] LABS: POC Glucose,Bedside 115 (70-110)
== END 2022-03-16 09:55 | disposition home or self-care (01) ==
PROVIDERS: PCP Nurse Practitioner; Visit Provider Internal Medicine Gastroenterology
PROC: 0DJ08ZZ Inspection of Upper Intestinal Tract, Via Natural or Artificial Opening Endoscopic (ICD-10-PCS; CPT 43235; principal; 2022-03-16 09:00)
DX: Z12.11 Encounter for screening for malignant neoplasm of colon (principal); K63.5 Polyp of colon; Z80.0 Family history of malignant neoplasm of digestive organs; K21.00 Gastro-esophageal reflux disease with esophagitis, without bleeding
CPT/HCPCS: 43235; 45385; 81025; 82962; 88305

== ENCOUNTER → 2022-05-08 10:00 | Outpatient (CLI) | payer BC, SELFPAY ==
[2022-05-08 18:53] LABS: Alanine Aminotransferase 24 U/L (12-78); Albumin Level 3.6 g/dl (3.5-5.0); Albumin/Globulin Ratio 1.3 (1.1-1.8); Alkaline Phosphatase 66 U/L (38-126); Anion Gap 8.3 mEq/L (5-15); Aspartate Amino Transferase 23 U/L (14-36); Bilirubin,Total 0.2 mg/dl (0.2-1.3); Blood Urea Nitrogen 14 mg/dl (7-17); Calcium 9.1 mg/dl (8.4-10.2); Carbon Dioxide 25 mmol/L (22.0-30.0); Chloride 108 mmol/L (98-107); Chol/HDL Ratio 5.1 (1-3.5); Cholesterol 177 mg/dl (140-200); Estimated Glomerular Filt Rate 92 ml/min (>60); GFR (African American) 111 ML/MIN (>60); Globulin 2.8 g/dL (1.3-3.2); Glucose 111 mg/dl (74-100); HDL Cholesterol 35 mg/dl (40-60); Potassium 4.3 mmoL/L (3.5-5.1); Sodium 137 mmol/L (136-145); Total Protein,Serum 6.4 g/dl (6.3-8.2); Triglycerides 150 mg/dl (30-150); VLDL Cholesterol 30 mg/dL (0-40)
[2022-05-08 19:04] LABS: Direct LDL Cholesterol 119.34 mg/dL (100-129)
== END ==
PROVIDERS: PCP Nurse Practitioner; Visit Provider Nurse Practitioner
DX: E78.5 Hyperlipidemia, unspecified (principal); E11.9 Type 2 diabetes mellitus without complications; I10 Essential (primary) hypertension; Z79.84 Long term (current) use of oral hypoglycemic drugs
CPT/HCPCS: 80053; 80061

== ENCOUNTER → 2022-07-05 11:30 | Outpatient (CLI) | payer BC, SELFPAY | PROVIDERS: PCP Nurse Practitioner; Visit Provider Nurse Practitioner | DX: U07.1 COVID-19 (principal); J06.9 Acute upper respiratory infection, unspecified; J02.9 Acute pharyngitis, unspecified | CPT/HCPCS: C9803; U0003; U0005 ==

== ENCOUNTER → 2022-08-16 19:15 | Outpatient (CLI) | payer BC, SELFPAY ==
[2022-08-16 17:59] LABS: Basophils # 0.1 K/mm3 (0-0.2); Basophils % 0.6 % (0.1-2.0); Eosinophils # 0.3 K/mm3 (0.0-0.4); Eosinophils % 2.8 % (0.1-12.0); Hematocrit 44.9 % (37.0-47.0); Hemoglobin 14.5 g/dL (12.2-16.2); Lymphocytes # 2.6 K/mm3 (0.7-4.5); Lymphocytes % 27.1 % (10-50); Mean Corpuscular HGB Conc 32.3 g/dL (31.8-35.4); Mean Corpuscular Hemoglobin 30.5 pg (27.0-31.2); Mean Corpuscular Volume 94.3 fl (81-99); Mean Platelet Volume 9.4 fl (7.4-10.4); Monocytes # 0.5 K/mm3 (0.1-1.0); Neutrophils # 6.2 K/mm3 (1.8-7.8); Neutrophils % 64.4 % (37.0-80.0); Platelet Count 370 K/mm3 (142-424); Red Blood Count 4.76 M/mm3 (4.20-5.40); Red Cell Distribution Width 14.3 % (11.5-17.5); White Blood Count 9.6 K/mm3 (4.8-10.8)
[2022-08-16 18:12] LABS: Alanine Aminotransferase 22 U/L (12-78); Albumin/Globulin Ratio 1.3 (1.1-1.8); Alkaline Phosphatase 74 U/L (38-126); Anion Gap 8.7 mEq/L (5-15); Aspartate Amino Transferase 26 U/L (14-36); Bilirubin,Total 0.4 mg/dl (0.2-1.3); Blood Urea Nitrogen 14 mg/dl (7-17); Calcium 9.3 mg/dl (8.4-10.2); Carbon Dioxide 26 mmol/L (22.0-30.0); Chloride 101 mmol/L (98-107); Chol/HDL Ratio 6.4 (1-3.5); Cholesterol 193 mg/dl (140-200); Estimated Glomerular Filt Rate 91 ml/min (>60); GFR (African American) 111 ML/MIN (>60); Globulin 3.1 g/dL (1.3-3.2); Glucose 96 mg/dl (74-100); HDL Cholesterol 30 mg/dl (40-60); Potassium 3.7 mmoL/L (3.5-5.1); Sodium 132 mmol/L (136-145); Total Protein,Serum 7.1 g/dl (6.3-8.2); Triglycerides 151 mg/dl (30-150); VLDL Cholesterol 30 mg/dL (0-40)
[2022-08-16 18:29] LABS: 25-OH Vitamin D, Total 39.1 ng/mL (30-100)
[2022-08-16 19:01] LABS: Vitamin B12 704 pg/mL (239-931)
[2022-08-16 19:37] LABS: Microalbumin/Creatinine Ratio 6.2
[2022-08-16 19:38] LABS: Creatinine,Urine Random 302 mg/dL (Not Estab.)
== END ==
LOC: LAB.DROPOF 19:16
PROVIDERS: PCP Nurse Practitioner; Visit Provider Nurse Practitioner
DX: N30.01 Acute cystitis with hematuria (principal); E11.9 Type 2 diabetes mellitus without complications; E78.5 Hyperlipidemia, unspecified; I10 Essential (primary) hypertension; E66.01 Morbid (severe) obesity due to excess calories; Z68.41 Body mass index [BMI] 40.0-44.9, adult; Z79.84 Long term (current) use of oral hypoglycemic drugs
CPT/HCPCS: 80053; 80061; 82043; 82306; 82570; 82607; 83036; 85025; 87086

== ENCOUNTER → 2022-08-29 07:31 | Outpatient (CLI) | payer BC, SELFPAY ==
--- NOTE | 2022-08-29 08:09 | CT_ITS ---
FINAL REPORT CLINICAL HISTORY: bilateral lower quadrant abdominal pain FINDINGS: CT OF THE ABDOMEN AND PELVIS WITH CONTRAST Axial CT images of the abdomen and pelvis were obtained after the administration of oral and iv contrast. Coronal reformatted images were also obtained and reviewed.This study was performed with techniques to keep radiation doses as low as reasonably achievable (ALARA). Individualized dose reduction techniques using automated exposure control or adjustment of mA and/or kV according to the patient''s size were employed. Abdomen: There is mild atelectasis in the right lung base. The heart is normal in size. The liver has an unremarkable appearance, without evidence of mass or biliary ductal dilatation. Mild nonspecific gallbladder wall thickening is noted. The spleen is unremarkable. No adrenal mass is present. The pancreas has an unremarkable appearance. The kidneys are normal, without evidence of mass or hydronephrosis. The aorta is normal in caliber. There is no free fluid or adenopathy. No mass or abnormal fluid collection is seen. Pelvis: There are postoperative changes in the pelvis from presumed appendectomy. The urinary bladder is unremarkable. There are several presumed left ovarian cysts measuring up to 18 mm. A low attenuation area in the uterine fundus measures 20 mm and may represent a degenerated uterine fibroid, other cystic or necrotic mass, or loculated endometrial fluid collection. There is no evidence of bowel obstruction. Degenerative changes are noted in the lower lumbar spine. IMPRESSION: Several presumed left ovarian cysts. Low attenuation in the uterine fundus may represent a degenerated uterine fibroid, other cystic or necrotic mass, or loculated endometrial fluid collection. Mild, nonspecific, gallbladder wall thickening. Reviewed, Interpreted and Dictated by Luis Archibald III, MD Transcribed by Tamika Kline Authenticated and [facility]
== END ==
LOC: RT 07:32
PROVIDERS: PCP Nurse Practitioner; Visit Provider Nurse Practitioner
DX: R10.31 Right lower quadrant pain (principal); R10.32 Left lower quadrant pain; R00.2 Palpitations; R42 Dizziness and giddiness; R55 Syncope and collapse
CPT/HCPCS: 74177; 93306; Q9967

== ENCOUNTER → 2022-09-08 15:02 | Outpatient (CLI) | payer BC, SELFPAY ==
--- NOTE | 2022-09-08 15:02 | US_ITS ---
FINAL REPORT CLINICAL HISTORY: ovarian cyst, abnormal uterine findings on CT COMPARISON: 08/29/2022 FINDINGS: Transvaginal sonographic images of the pelvis were obtained. Scan was difficult to obtain. The uterus is retroverted. Note is made that on the pelvic CT, the uterus was anteverted. Fluid in debris is seen in the fundus of the uterus. Collection measures up to 1.2 cm in greatest dimension in corresponds to the abnormality seen on the CT, may be related to prior ablation. Multiple left ovarian cysts are seen. Individual cysts measure up to 2.0 cm in greatest dimension. The right ovary seen on the transabdominal images is unremarkable. IMPRESSION: Fluid in debris in the uterus of the fundus, may be related to prior ablation. Multiple left ovarian cysts. Reviewed, Interpreted and Dictated by Lux Rivers MD Transcribed by Lilli Wetzel Authenticated and [facility]
== END ==
LOC: RAD 15:02
PROVIDERS: PCP Nurse Practitioner; Visit Provider Nurse Practitioner
DX: N83.209 Unspecified ovarian cyst, unspecified side (principal); R93.89 Abnormal findings on diagnostic imaging of other specified body structures
CPT/HCPCS: 76830

== ENCOUNTER → 2022-10-05 16:07 | Outpatient (CLI) | payer BC, SELFPAY ==
[2022-10-05 17:31] LABS: Basophils % 0.4 % (0.1-2.0); Eosinophils # 0.3 K/mm3 (0.0-0.4); Eosinophils % 2.4 % (0.1-12.0); Hematocrit 44.7 % (37.0-47.0); Hemoglobin 14.4 g/dL (12.2-16.2); Lymphocytes # 3.9 K/mm3 (0.7-4.5); Lymphocytes % 36.1 % (10-50); Mean Corpuscular HGB Conc 32.3 g/dL (31.8-35.4); Mean Corpuscular Volume 92.8 fl (81-99); Mean Platelet Volume 8.5 fl (7.4-10.4); Monocytes # 0.5 K/mm3 (0.1-1.0); Monocytes % 4.6 % (1.7-9.3); Neutrophils # 6.1 K/mm3 (1.8-7.8); Neutrophils % 56.4 % (37.0-80.0); Platelet Count 346 K/mm3 (142-424); Red Blood Count 4.82 M/mm3 (4.20-5.40); Red Cell Distribution Width 14.4 % (11.5-17.5); White Blood Count 10.8 K/mm3 (4.8-10.8)
[2022-10-05 17:59] LABS: Alanine Aminotransferase 32 U/L (12-78); Albumin/Globulin Ratio 1.5 (1.1-1.8); Alkaline Phosphatase 64 U/L (38-126); Anion Gap 14.2 mEq/L (5-15); Aspartate Amino Transferase 27 U/L (14-36); Bilirubin,Total 0.2 mg/dl (0.2-1.3); Blood Urea Nitrogen 8 mg/dl (7-17); Calcium 9.4 mg/dl (8.4-10.2); Carbon Dioxide 29 mmol/L (22.0-30.0); Chloride 99 mmol/L (98-107); Estimated Glomerular Filt Rate 91 ml/min (>60); GFR (African American) 111 ML/MIN (>60); Globulin 2.7 g/dL (1.3-3.2); Glucose 76 mg/dl (74-100); Potassium 3.2 mmoL/L (3.5-5.1); Sodium 139 mmol/L (136-145); Total Protein,Serum 6.7 g/dl (6.3-8.2)
[2022-10-05 18:24] LABS: HCG,Quantitative < 2 mIU/ml (0-5.42)
== END ==
PROVIDERS: PCP Nurse Practitioner; Visit Provider Obstetrics & Gynecology
DX: R10.2 Pelvic and perineal pain (principal)
CPT/HCPCS: 36415; 80053; 84702; 85025

== ENCOUNTER 2022-10-12 06:01 | Day surgery (SDC) | payer BC, SELFPAY ==
[2022-10-10 10:18] VITALS: BMI 39.1
[2022-10-12] VITALS (11 sets, daily range): BP systolic 105–123; BP diastolic 64–86; PULSE 89–95; RESP 16–20; TEMP 36.2–43; O2SAT 94–100
[2022-10-12 06:40] LABS: POC Glucose,Bedside 109 (70-110)
--- NOTE | 2022-10-12 08:08 | EXP.ANES.CKL ---
[facility] Disclaimer: The information contained in this section may have been updated after the patient was seen, as this information can be updated by other users. Medical History Abnormal finding present on diagnostic imaging of uterus Gastroesophageal reflux disease Hyperlipidemia Hypertension Obesity Ovarian cyst Tobacco dependence syndrome Type 2 diabetes mellitus without complications Surgical History History of appendectomy History of History of colonoscopy History of endometrial ablation Surgical history of tubal ligation Family History Other Cancer Coronary artery disease Diabetes Social History Smoking Status: Current every day smoker tobacco type: cigarettes packs per day: 1 pack-years: 25 years smoked: 25 second hand exposure: Yes alcohol intake: never substance use type: denies use current occupational status: employed Travel in the last 8 weeks: None household members: spouse housing: house current occupation: [employer] current occupational exposures/hazards: No caffeine: Yes special idalia needs: No agree to transfusion: No do you feel safe at home: Yes victim of physical abuse: No victim of emotional abuse: No victim of sexual abuse: No would you like helpful sources: No [facility] Anesthesia Checklist Patient Identification Patient Identification: Arm Band Structural Data Admitted From: Home Planned Operative Procedure/s: Hysteroscopy, D&C, Myosure Ablation Consent for Planned Operative Procedure(s) Verified: Yes Verified Documents: Surgical Consent and History and Physical NPO Status Verified Time NPO: 00:00 Additional verifications Anesthesia Reactions: No Hx Blood Transfusions: No Blood Transfusion Reaction: No Airway Assessment C-Spine Mobility Assessed: Yes TMJ Mobility Assessed: Yes Dentition: Good Dentition Neurological Assessment Level of Consciousness: Awake and Alert Anesthesia Plan Anesthesia Risk discussed: Yes Anesthesia Plan: Verified ASA Class: II Anesthesia Type: General
--- NOTE | 2022-10-12 09:08 | EXP.ANES.I ---
[facility] Anesthesia Record Part I Anesthesia Record I Intake, IV Amount: 1,000 Estimated blood loss (mL): 5 Urine output (mL): 0 Blood Products used (#): none Blood Pressure: 105/64 SaO2: 94 Pulse Rate: 95 Respiratory Rate: 16 Temperature: 98.1 F Patient is:: Drowsy and Stable Stable to PACU at:: 09:05
--- NOTE | 2022-10-12 09:24 | EXP.OP.NOTE ---
Date of procedure: 10/12/22 Pre-op Diagnosis:: 1. Pelvic pain 2. Endometrial fluid Post-op Diagnosis:: Same Procedure performed:: D&C Hysteroscopy Surgeon:: Jane Llanes MD [place] Machine Operator(s):: None GEOTHERMAL HEAT PUMP MACHINIST:: Jose R Nobles Anesthesia: GETA Estimated blood loss (mL): 5 Operative findings:: Cervical stenosis no pathology visualized within uterine cavity, no endometrial fluid noted Operative note:: The patient was taken to the OR and general anesthesia administered without difficulty. She was prepped/draped in lithotomy position. The cervix was very stenotic and required pediatric dilators to begin the dilation process. Once the cervix was sufficiently dilated, the hysteroscopic was placed through the cervix and an evaluation of the cavity was performed. No fibroids, polyps or fluid was visualized within the uterine cavity, but the cavity did appear narrow. The hysteroscope was removed and sharp curettage was performed. The specimen was sent to pathology. Once this was completed, all instruments were removed from her uterus and vagina. She was taken out of lithotomy position, awakened from anesthesia and taken to the PACU in stable condition. All sponge, needle & instrument counts correct. EBL 5cc. Condition: stable Disposition: PACU Specimens:: Endometrial curettings Complications:: none
[2022-10-12 09:27] LABS: POC Glucose,Bedside 123 (70-110)
--- NOTE | 2022-10-12 10:09 | P.PNANES_ITS ---
[facility] Anesthesia Record Part II Anesthesia Record Part II Discharge Time: 09:34 Destination: Surgical Day Care (OP Surgery) PACU nurse assessment reviewed?: Yes Patient Condition:: Good Anesthesia Complications:: None Swallowing reflex intact?: Yes Cyanosis?: No Blood Pressure: 109/69 Pulse Rate: 94 Temperature: 98.1 F Mental Status: Alert & Oriented Pain level:: 0 Nausea and/or vomitting:: None Intake, IV Amount: 0
--- NOTE | 2022-10-12 10:49 | SUR.PHASEII ---
1006-Pt dc'd from postop waiting in for Dr Llanes to reconcile the home meds 1140-meds reconcilled
== END 2022-10-12 10:06 | disposition home or self-care (01) ==
PROVIDERS: PCP Nurse Practitioner; Visit Provider Obstetrics & Gynecology
PROC: (CPT 58558; principal; 2022-10-12 07:30)
DX: R10.2 Pelvic and perineal pain (principal); R93.89 Abnormal findings on diagnostic imaging of other specified body structures; E11.9 Type 2 diabetes mellitus without complications
CPT/HCPCS: 58558; 82962; 96374; J2405

== ENCOUNTER → 2022-11-30 23:27 | Outpatient (CLI) | payer BC, SELFPAY ==
[2022-11-30 18:53] LABS: Alanine Aminotransferase 22 U/L (12-78); Albumin Level 4.1 g/dl (3.5-5.0); Albumin/Globulin Ratio 1.3 (1.1-1.8); Alkaline Phosphatase 96 U/L (38-126); Anion Gap 11.1 mEq/L (5-15); Aspartate Amino Transferase 23 U/L (14-36); Bilirubin,Total 0.3 mg/dl (0.2-1.3); Blood Urea Nitrogen 13 mg/dl (7-17); Calcium 9.7 mg/dl (8.4-10.2); Carbon Dioxide 30 mmol/L (22.0-30.0); Chloride 103 mmol/L (98-107); Chol/HDL Ratio 4.1 (1-3.5); Cholesterol 159 mg/dl (140-200); Estimated Glomerular Filt Rate 91 ml/min (>60); GFR (African American) 111 ML/MIN (>60); Globulin 3.1 g/dL (1.3-3.2); Glucose 87 mg/dl (74-100); HDL Cholesterol 39 mg/dl (40-60); Potassium 4.1 mmoL/L (3.5-5.1); Sodium 140 mmol/L (136-145); Total Protein,Serum 7.2 g/dl (6.3-8.2); Triglycerides 149 mg/dl (30-150); VLDL Cholesterol 30 mg/dL (0-40)
[2022-11-30 19:05] LABS: Direct LDL Cholesterol 96.81 mg/dL (100-129)
[2022-11-30 19:26] LABS: Hemoglobin A1C 5.6 % (4.0-6.0); Thyroid Stimulating Hormone 0.77 uIU/mL (0.465-4.68)
== END ==
PROVIDERS: PCP Nurse Practitioner; Visit Provider Nurse Practitioner
DX: E11.9 Type 2 diabetes mellitus without complications (principal); I10 Essential (primary) hypertension; Z79.84 Long term (current) use of oral hypoglycemic drugs
CPT/HCPCS: 80053; 80061; 83036; 84443

== ENCOUNTER → 2022-12-07 11:39 | Outpatient (CLI) | payer BC, SELFPAY ==
--- NOTE | 2022-12-07 11:43 | NM_ITS ---
APPROVED REPORT Exam: Nuclear Stress Test Indication: chest pain..short of breath..syncope..fatigue Patient Location: Outpatient Stress Tech: Sigrid Chow [place] Tech:Sarah RaymundoSHELLI RT(R)(N) Ht: 5 ft 1 in Wt: 202 lbs Bra Size: ddd HR: 87 bpm BP: 129/86 mmHg BSA: 1.90 m2 Rhythm: NSR TID: 1.14 BMI: 38.1 History: chest pain..short of breath..syncope..fatigue Procedure: Patient exercised on Beni protocol 6:00 minutes and sec, resting heart rate 87 bpm, resting blood pressure 129/86 mmHg, with exercise maximum heart rate achived was 158 bpm which is 85 % of the maximum predicted heart rate and blood pressure was 166/86 mmHg. Test was stopped due to fatigue. Patient denied any complaint of chest pain. Patient has poor exercise capacity, achieved 7.0 METs of workload on treadmill, the blood pressure response to exercise was normal. Cardiac Stress and Resting SPECT Images: Cardiac Stress and Resting SPECT images were obtained using technetium 99m Myoview 32.8 mCi stress and 10.60 mCi at rest. Resting and stress imaging in both supine and prone positions demonstrate no fixed or reversible perfusion defects. Gated imaging demonstrates normal global and regional LV systolic function. LVEF is calculated at 62%. Conclusion: No fixed or reversible perfusion defects. Gated imaging demonstrates normal global and regional LV systolic function. LVEF is calculated at 62%. Electronically signed by : Tierra Coulter, 12/10/2022 15:00:57
--- NOTE | 2022-12-07 13:28 | CA_ITS ---
APPROVED REPORT Exam: Exercise Treadmill Technologist: Yesi Rosario, Ht: 5 ft 1 in Wt: 202 lbs BSA: 1.90 m2 HR: 79 bpm BP: 116/76 mmHg Rhythm: NSR Indications: CP, DIZZINESS Medical History Medications: Omeprazole,,,,, Metformin,,,,, Atorvastatin,,,,, Cyclobenzaprine,,,,, NYstatin,,,,, Valsartan HCTZ,,,,, Ozempic,,,,, Stress Test Details Test: Beni HR Resting HR: 87 bpm Max Heart Rate (APMHR): 177 bpm Max HR Achieved: 158 bpm Target HR (85% APMHR): 150 bpm % of APMHR: 89 Recovery HR: 104 bpm HR response to stress: Normal HR response to stress BP Resting BP: 129.0/86.0 mmHg Max BP: 166.0/86.0 mmHg Recovery BP: 108.0/78.0 mmHg BP response to stress: Normal blood pressure response to stress. ECG Resting ECG: sinus arrhythmia, low voltage QRS Stress ECG: No change Arrhythmia: None Recovery ECG: No change Recovery Arrhythmia: None Clinical Exercise duration: 06:00 min Highest Stage Achieved: II Exercise capacity: 7.0 METs Overall Exercise Capacity for Age: Poor Stress ECG Conclusion The patient was able to exercise for a total of 6:00 on Beni Protocol. She was able to achieve a total of 7 METs. She has a poor exercise capacity compared to age and sex matched peers. She has a normal HR and BP response to exercise. Max HR: 158 % of PM: 89% Max BP: 166/86 METs: 7.0 Test stopped due to: SOA, Fatigue Symptoms: No CP Arrhythmias/Ectopy: None ST-T Changes: Normal ST response to exercise. Conclusion: Poor exercise capacity. Normal GXT. Myoview images reported separately. Test Summary REST . . . . . . . Sitting REST . . . . . . . Standing REST 03:28 0.0 0.0 87 . 129/ 86 . . Stage 1 01:00 10.0 1.7 116 . . . . Stage 1 02:00 10.0 1.7 142 . . . . Stage 1 03:00 10.0 1.7 146 . 166/ 86 . . Stage 2 01:00 12.0 2.5 150 . . . . Stage 2 02:00 12.0 2.5 155 . . . . Stage 2 03:00 12.0 2.5 155 . . . Stop exercise at 06:00 RECOVERY 01:00 0.0 0.0 148 . . . . RECOVERY 02:00 0.0 0.0 122 . . . . RECOVERY 03:00 0.0 0.0 108 . 132/ 78 . . RECOVERY 04:00 0.0 0.0 111 . 116/ 82 . . RECOVERY 05:00 0.0 0.0 103 . 108/ 78 . . RECOVERY 05:21 0.0 0.0 105 . 108/ 78 . . Electronically signed by : Tierra Coulter, 12/10/2022 14:58:28
== END ==
LOC: RAD 11:40
PROVIDERS: PCP Nurse Practitioner; Visit Provider Nurse Practitioner
DX: R07.9 Chest pain, unspecified (principal); R42 Dizziness and giddiness; Z82.49 Family history of ischemic heart disease and other diseases of the circulatory system
CPT/HCPCS: 78452; 93017; A9502

== ENCOUNTER → 2022-12-11 13:03 | Outpatient (CLI) | payer BC, SELFPAY | PROVIDERS: PCP Nurse Practitioner; Visit Provider Internal Medicine | DX: R06.00 Dyspnea, unspecified (principal); R07.9 Chest pain, unspecified; R42 Dizziness and giddiness; Z82.49 Family history of ischemic heart disease and other diseases of the circulatory system | CPT/HCPCS: 93270 ==

== ENCOUNTER → 2023-02-20 23:19 | Outpatient (CLI) | payer BC, SELFPAY ==
[2023-02-20 19:05] LABS: Coronavirus 19, PCR Not Detected (NotDetected); Influenza A, PCR Not Detected (NotDetected); Influenza B, PCR Not Detected (NotDetected)
== END ==
PROVIDERS: PCP Nurse Practitioner; Visit Provider Nurse Practitioner
DX: J06.9 Acute upper respiratory infection, unspecified (principal)
CPT/HCPCS: 87636

== ENCOUNTER → 2023-02-26 10:45 | Outpatient (CLI) | payer BC, SELFPAY ==
--- NOTE | 2023-02-26 10:48 | MM_ITS ---
PROCEDURE INFORMATION: Exam: MG Bilateral Screening 3D Mammography Exam date and time: 02/26/2023 10:45 AM Age: 42 years old Clinical indication: Screening examination. Her maternal grandmother had breast cancer. TECHNIQUE: Imaging protocol: Bilateral Screening tomosynthesis and 2D mammography including computer-aided detection (CAD) when performed. COMPARISON: 1. MG MM DIG SCREENING MAMM BI W/CAD 02/23/2022 12:55 PM 2. MG MM DIG SCREENING MAMM BI W/CAD 10/15/2020 2:57 PM 3. MG DXBI MM Dig mamm BI DX w/CAD 02/06/2018 1:56 PM 4. MG [id number] DIG MAMM-DX UNI A/VW-RT W/CAD 12/18/2016 1:10 PM FINDINGS: MAMMOGRAPHY: Breast composition: There are scattered areas of fibroglandular density. Mass: None. Architectural distortion: None. Calcifications: No suspicious calcifications. Asymmetric density: None. Skin thickening: None. Axillary adenopathy: None. IMPRESSION: No mammographic evidence of malignancy. Annual screening is recommended unless otherwise clinically indicated. ASSESSMENT: BI-RADS Category 1: Negative
== END ==
PROVIDERS: PCP Nurse Practitioner; Visit Provider Nurse Practitioner
DX: Z12.31 Encounter for screening mammogram for malignant neoplasm of breast (principal)
CPT/HCPCS: 77063; 77067

== ENCOUNTER 2023-05-28 14:22 | Emergency (ER) | payer BC, SELFPAY ==
[2023-05-28 14:30] VITALS: BP 123/73; PULSE 80; RESP 18; TEMP 36.6; O2SAT 100; BMI 37.0
--- NOTE | 2023-05-28 14:31 | ED_ITS ---
Discharge Plan Disposition Patient Disposition: Home, Self-Care Condition: Good Prescriptions Prescriptions: New azithromycin [Zithromax] 250 mg tablet 250 mg PO UD DOSE PK Qty: 6 0RF Rx Instructions: Take two (2) tablets today, then one (1) tablet days #2 thru #5 benzonatate [benzonatate] 100 mg capsule 100 mg PO TIDP PRN (Reason: Cough) Qty: 30 0RF methylprednisolone 4 mg Tablets,Dose Pack 4 mg PO DIRECTED 6 Days Qty: 21 0RF Rx Instructions: Take 1 pack as directed for 6 days guaifenesin [Mucinex] 600 mg tablet extended release 12hr 600 - 1,200 mg PO BIDP PRN (Reason: Congestion) Qty: 30 0RF No Action cyclobenzaprine 10 mg tablet 10 mg PO TID PRN (Reason: muscle spasm) Qty: 30 0RF nystatin 100,000 unit/gram cream 1 applic topical TID Qty: 30 0RF atorvastatin 10 mg tablet See Rx Instructions .ROUTE .COMPLEX Qty: 90 1RF Dose Instruction: TAKE 1 TABLET ORALLY DAILY Rx Instructions: TAKE 1 TABLET ORALLY DAILY metformin 500 mg tablet See Rx Instructions .ROUTE .COMPLEX Qty: 90 1RF Dose Instruction: TAKE 1 TABLET BY MOUTH EVERY DAY Rx Instructions: TAKE 1 TABLET BY MOUTH EVERY DAY omeprazole 40 mg capsule,delayed release(DR/EC) See Rx Instructions .ROUTE .COMPLEX Qty: 90 1RF Dose Instruction: TAKE 1 CAPSULE BY MOUTH EVERY DAY FOR 90 DAYS Rx Instructions: TAKE 1 CAPSULE BY MOUTH EVERY DAY FOR 90 DAYS varenicline 1 mg tablet 1 mg PO BID Qty: 60 4RF tamsulosin 0.4 mg capsule See Rx Instructions .ROUTE .COMPLEX Qty: 90 0RF Dose Instruction: TAKE 1 CAPSULE BY MOUTH EVERY DAY Rx Instructions: TAKE 1 CAPSULE BY MOUTH EVERY DAY Ozempic 1 mg/dose (4 mg/3 mL) pen injector 1 mg SQ WEEKLY Qty: 3 5RF valsartan-hydrochlorothiazide 160-12.5 mg tablet 1 tab PO DAILY Qty: 30 2RF (DME) Blood Glucose Test Strip See Rx Instructions MISCELLANEOUS .MEDSUPPLY Rx Instructions: As directed (DME) lancets Misc See Rx Instructions MISCELLANEOUS .MEDSUPPLY Rx Instructions: As directed (DME) blood-glucose meter [Blood Glucose Monitoring] Kit See Rx Instructions MISCELLANEOUS .MEDSUPPLY Rx Instructions: As directed Referrals Follow up/Referrals: Kenya Chicas APRN [Primary Care Provider] - See instructions Activity Restrictions/Add. Instructions Additional Instructions/Restrictions: Drink plenty of fluids. Take tylenol or ibuprofen for pain or fever. Take the medications as directed. Follow up with your regular doctor. GO TO THE ER FOR ANY WORSENING SYMPTOMS Clinical Impressions Clinical Impression: Bronchitis, Otitis media Instructions Patient Instructions: Middle Ear Infection, DI for Acute Bronchitis Discharge ED Provider: Rene Hutchison [facility] General Stated complaint: cough and ear ache Time Seen by Provider: 05/28/23 14:31 History of Present Illness Provider Complaint: She states that for the past 1 week she has had worsening ear pain and chest congestion. Related Data Home Medications Medication Instructions Recorded Confirmed blood sugar diagnostic (Blood 10/10/22 02/20/23 Glucose Test strips) blood-glucose meter (Blood Glucose 10/10/22 02/20/23 Monitoring kit) lancets 10/10/22 02/20/23 Previous Rx's Medication Instructions Recorded cyclobenzaprine 10 mg tablet 10 mg PO TID PRN muscle spasm #30 05/31/22 tabs nystatin 100,000 unit/gram topical 1 applic topical TID #30 grams 10/26/22 cream atorvastatin 10 mg tablet See Rx Instructions .Route 11/10/22 .COMPLEX #90 tabs metformin 500 mg tablet See Rx Instructions .Route 12/13/22 .COMPLEX #90 tabs omeprazole 40 mg capsule,delayed See Rx Instructions .Route 12/13/22 release .COMPLEX #90 caps varenicline 1 mg tablet 1 mg PO BID #60 tabs 01/18/23 tamsulosin 0.4 mg capsule See Rx Instructions .Route 02/27/23 .COMPLEX #90 caps semaglutide 1 mg/dose (4 mg/3 mL) 1 mg (0.75 mL) SQ WEEKLY Diabetes 03/02/23 subcutaneous pen injector (Ozempic) #3 mL valsartan 160 1 tab PO DAILY #30 tabs 04/03/23 mg-hydrochlorothiazide 12.5 mg tablet azithromycin 250 mg tablet 250 mg PO UD DOSE PK #6 tabs 05/28/23 (Zithromax) benzonatate 100 mg capsule 100 mg PO TIDP PRN Cough #30 caps 05/28/23 guaifenesin 600 mg tablet, 600 - 1,200 mg PO BIDP PRN 05/28/23 extended release 12 hr (Mucinex) Congestion #30 tabs methylprednisolone 4 mg tablets in 4 mg PO DIRECTED 6 days #21 tabs 05/28/23 a dose pack Allergies Allergy/AdvReac Type Severity Reaction Status Date / Time Penicillins Allergy Mild Hives Verified 05/28/23 14:39 [facility] Disclaimer: The information contained in this section may have been updated after the patient was seen, as this information can be updated by other users. Medical History Abnormal finding present on diagnostic imaging of uterus Dizziness Family history of early CAD Gastroesophageal reflux disease Hyperlipidemia Hypertension Obesity Ovarian cyst Tobacco dependence syndrome Urinary retention Surgical History History of appendectomy History of History of colonoscopy History of endometrial ablation History of hysteroscopy Surgical history of tubal ligation Family History Other Cancer Coronary artery disease Diabetes Social History Smoking Status: Current every day smoker tobacco type: cigarettes packs per day: 1 years smoked: 25 second hand exposure: Yes alcohol intake: never substance use type: denies use current occupational status: employed Travel in the last 8 weeks: None household members: spouse housing: house current occupation: [employer] current occupational exposures/hazards: No caffeine: Yes special idalia needs: No agree to transfusion: No do you feel safe at home: Yes victim of physical abuse: No victim of emotional abuse: No victim of sexual abuse: No would you like helpful sources: No ROS Obtained: Yes All systems reviewed & no additional complaints except as documented Constitutional Constitutional: Denies chills, Reports fever(s) and Reports poor appetite Eyes Eyes: Denies eye discharge ENT Ears, Nose, Mouth, and Throat: Denies ear discharge, Reports otalgia, Denies hearing loss, Denies sinus pain and Reports sore throat Cardiovascular Cardiovascular: Denies chest pain and Denies dyspnea Respiratory Respiratory: Denies chest congestion, Reports cough and Denies dyspnea Gastrointestinal Gastrointestingal: Denies abdominal pain, diarrhea, nausea or vomiting Musculoskeletal Musculoskeletal: Denies arthralgias Integumentary/Breasts Skin/Breast: Denies rash Physical Exam General General appearance: alert and in no apparent distress Head Head exam: atraumatic, normocephalic and normal inspection Eye Eye exam: Present normal appearance; Absent PERRL or EOMI ENT ENT exam: Present mucous membranes moist and normal external ear exam Expanded ENT Exam TM/Canal exam: Bilateral TM: erythema, bulging and effusion Nose exam: Absent sinus tenderness Nasal speculum exam: Bilateral: normal Mouth exam: Present normal external inspection and other; Absent drooling Teeth exam: Present normal inspection Throat exam: Present tonsillar erythema and tonsillomegaly Neck Neck exam: Present normal inspection, full ROM and trachea midline; Absent tenderness, meningismus or lymphadenopathy Chest Chest inspection: Present normal inspection and symmetric chest wall rise; Absent tenderness Respiratory Respiratory exam: Present normal lung sounds bilaterally; Absent respiratory distress, wheezes or stridor Cardiovascular Cardiovascular exam: Present regular rate, normal rhythm and normal heart sounds; Absent tachycardia or irregular rhythm Abdominal Exam Abdominal exam: Present soft and normal bowel sounds; Absent distention, tenderness, guarding, rebound or rigidity Extremities Exam Extremities exam: Present normal inspection and normal capillary refill; Absent tenderness, joint swelling or calf tenderness Back Exam Back exam: Present normal inspection and full ROM; Absent tenderness, CVA tenderness (R) or CVA tenderness (L) Neurological Exam Neurological exam: Present alert, oriented X3, CN II-XII intact, normal gait and reflexes normal; Absent motor sensory deficit Psychiatric Psychiatric exam: Present normal affect and normal mood Skin Skin exam: Present warm, dry, intact and normal color Lymphatic Lymphatic Findings: no adenopathy Medical Decision Making Medical Records Medical records reviewed: No I reviewed the patient's medical records. Slim Inquiry Pt receiving controlled substance: No
[2023-05-28 15:15] VITALS: BP 123/73; PULSE 80; RESP 18; TEMP 36.6; O2SAT 100
== END 2023-05-28 15:15 | disposition home or self-care (01) ==
PROVIDERS: Emergency Provider Nurse Practitioner Family; PCP Nurse Practitioner
DX: H66.93 Otitis media, unspecified, bilateral (principal); J20.9 Acute bronchitis, unspecified; R09.89 Other specified symptoms and signs involving the circulatory and respiratory systems; F17.210 Nicotine dependence, cigarettes, uncomplicated; E78.5 Hyperlipidemia, unspecified; I10 Essential (primary) hypertension; K21.9 Gastro-esophageal reflux disease without esophagitis
CPT/HCPCS: 87635; 99212; 99214; G0463

== ENCOUNTER 2023-06-13 19:11 | Outpatient (CLI) | payer BC, SELFPAY ==
[2023-06-13 18:36] LABS: Alanine Aminotransferase 25 U/L (12-78); Albumin Level 3.8 g/dl (3.5-5.0); Albumin/Globulin Ratio 1.2 (1.1-1.8); Alkaline Phosphatase 83 U/L (38-126); Anion Gap 8.2 mEq/L (5-15); Aspartate Amino Transferase 25 U/L (14-36); Bilirubin,Total 0.3 mg/dl (0.2-1.3); Blood Urea Nitrogen 12 mg/dl (7-17); Calcium 9.5 mg/dl (8.4-10.2); Carbon Dioxide 28 mmol/L (22.0-30.0); Chloride 107 mmol/L (98-107); Chol/HDL Ratio 4.8 (1-3.5); Cholesterol 184 mg/dl (140-200); Estimated Glomerular Filt Rate 91 ml/min (>60); GFR (African American) 111 ML/MIN (>60); Globulin 3.1 g/dL (1.3-3.2); Glucose 97 mg/dl (74-100); HDL Cholesterol 38 mg/dl (40-60); Potassium 4.2 mmoL/L (3.5-5.1); Sodium 139 mmol/L (136-145); Total Protein,Serum 6.9 g/dl (6.3-8.2); Triglycerides 164 mg/dl (30-150); VLDL Cholesterol 33 mg/dL (0-40)
[2023-06-13 18:48] LABS: Direct LDL Cholesterol 115.35 mg/dL (100-129)
[2023-06-13 19:12] LABS: Creatinine,Urine Random 210 mg/dL (Not Estab.)
[2023-06-13 19:19] LABS: Microalbumin/Creatinine Ratio 3.1
[2023-06-13 19:36] LABS: Hemoglobin A1C 5.5 % (4.0-6.0)
== END 2023-06-13 23:59 ==
LOC: LAB.DROPOF 19:12
PROVIDERS: PCP Nurse Practitioner; Visit Provider Nurse Practitioner
DX: E78.5 Hyperlipidemia, unspecified (principal); I10 Essential (primary) hypertension; K21.9 Gastro-esophageal reflux disease without esophagitis; E11.9 Type 2 diabetes mellitus without complications; E66.9 Obesity, unspecified; Z68.37 Body mass index [BMI] 37.0-37.9, adult
CPT/HCPCS: 80053; 80061; 82043; 82570; 83036

== ENCOUNTER 2023-09-04 18:00 | Outpatient (CLI) | payer BC, SELFPAY ==
[2023-09-04 19:10] LABS: Alanine Aminotransferase 22 U/L (12-78); Albumin Level 3.6 g/dl (3.5-5.0); Albumin/Globulin Ratio 1.3 (1.1-1.8); Alkaline Phosphatase 77 U/L (38-126); Anion Gap 7.8 mEq/L (5-15); Aspartate Amino Transferase 24 U/L (14-36); Bilirubin,Total 0.3 mg/dl (0.2-1.3); Blood Urea Nitrogen 10 mg/dl (7-17); Calcium 9.2 mg/dl (8.4-10.2); Carbon Dioxide 27 mmol/L (22.0-30.0); Chloride 108 mmol/L (98-107); Chol/HDL Ratio 3.2 (1-3.5); Cholesterol 130 mg/dl (140-200); Estimated Glomerular Filt Rate 91 ml/min (>60); GFR (African American) 110 ML/MIN (>60); Globulin 2.7 g/dL (1.3-3.2); Glucose 98 mg/dl (74-100); HDL Cholesterol 41 mg/dl (40-60); Potassium 3.8 mmoL/L (3.5-5.1); Sodium 139 mmol/L (136-145); Total Protein,Serum 6.3 g/dl (6.3-8.2); Triglycerides 59 mg/dl (30-150); VLDL Cholesterol 12 mg/dL (0-40)
[2023-09-04 19:22] LABS: Direct LDL Cholesterol 84.14 mg/dL (100-129)
[2023-09-04 19:34] LABS: 25-OH Vitamin D, Total 59.3 ng/mL (30-100)
[2023-09-04 19:40] LABS: Thyroid Stimulating Hormone 0.73 uIU/mL (0.465-4.68)
[2023-09-04 19:59] LABS: Vitamin B12 672 pg/mL (239-931)
[2023-09-04 20:02] LABS: Hemoglobin A1C 5.5 % (4.0-6.0)
== END 2023-09-04 23:59 | disposition home or self-care (01) ==
LOC: LAB.DROPOF 09-05 11:00
PROVIDERS: PCP Nurse Practitioner; Visit Provider Nurse Practitioner
DX: E11.9 Type 2 diabetes mellitus without complications (principal); I10 Essential (primary) hypertension; E78.5 Hyperlipidemia, unspecified; E66.9 Obesity, unspecified; Z68.37 Body mass index [BMI] 37.0-37.9, adult
CPT/HCPCS: 80053; 80061; 82306; 82607; 83036; 84443

== ENCOUNTER 2023-09-11 13:15 | Outpatient (CLI) | payer BC, SELFPAY ==
--- NOTE | 2023-09-11 13:16 | US_ITS ---
PROCEDURE INFORMATION: Exam: US Right Breast, Complete US Left Breast, Complete MG Bilateral Diagnostic Breast Tomosynthesis Exam date and time: 09/11/2023 1:06 PM Age: 43 years old Clinical indication: Due for annual screening mammogram. Patient reports bilateral palpable breast lumps TECHNIQUE: Imaging protocol: Complete ultrasound of all four quadrants of the right breast and the retroareolar regions, including ultrasound of the axilla when performed. Complete ultrasound of all four quadrants of the left breast and the retroareolar regions, including ultrasound of the axilla when performed. Bilateral Diagnostic tomosynthesis and 2D mammography including computer-aided detection (CAD) when performed. Unilateral or bilateral exam. COMPARISON: 1. MG MM DIG SCREENING MAMM BI W/CAD 02/26/2023 10:45 AM 2. MG MM DIG SCREENING MAMM BI W/CAD 02/23/2022 12:55 PM 3. MG MM DIG SCREENING MAMM BI W/CAD 10/15/2020 2:57 PM 4. MG DXBI MM Dig mamm BI DX w/CAD 02/06/2018 1:56 PM FINDINGS: MAMMOGRAPHY: Breast composition: The breast is heterogeneously dense, which may obscure small masses. Breast mammogram findings: Stable benign-appearing calcifications are present. No new mass, architectural distortion, or suspicious calcifications have developed to suggest malignancy. No axillary adenopathy. ULTRASOUND: Breast ultrasound findings: Bilateral 4 quadrant and retroareolar breast ultrasound and bilateral axilla ultrasound Hypoechoic mostly circumscribed generally benign-appearing masses, morphologically similar to 1 another, are present as follows: 0.5 x 0.5 x 0.2 cm left 4 o'clock 3 cm from the nipple 0.3 x 0.4 x 0.2 cm right 7 o'clock 12 cm from the nipple 0.4 x 0.6 x 0.3 cm right 7 o'clock 12 cm from the nipple 0.5 x 0.3 x 0.5 cm right 2 o'clock 5 cm from the nipple In the region of mammographic interest lower outer right breast there are 2 mildly irregular heterogeneously hypoechoic masses as follows: 0.8 x 1.1 x 0.4 cm right 7 o'clock 4 cm from the nipple 0.9 x 1.0 x 0.4 cm right 8 o'clock 4 cm from the nipple There are several shadowing dense calcifications No morphologically suspicious or dominant mass is present No architectural distortion or suspicious shadowing No axillary adenopathy IMPRESSION: In the region of palpable concern lower outer right breast, 1.1 cm 7 o'clock and 1.0 cm right 8 o'clock heterogeneous hypoechoic lobulated mildly irregular masses are present. Due to the clinical presentation as palpable lump, ultrasound-guided biopsy is recommended at this time Six-month follow-up targeted ultrasound is recommended to assure stability of bilateral morphologically similar appearing breast masses. ASSESSMENT: BI-RADS category 4: Suspicious
== END 2023-09-11 23:59 | disposition home or self-care (01) ==
LOC: RAD 13:16
PROVIDERS: PCP Nurse Practitioner; Visit Provider Nurse Practitioner
DX: D48.61 Neoplasm of uncertain behavior of right breast (principal); D48.62 Neoplasm of uncertain behavior of left breast
CPT/HCPCS: 76641; 77062; 77066; G0279

== ENCOUNTER 2023-09-27 07:41 | Outpatient (CLI) | payer BC, SELFPAY ==
--- NOTE | 2023-09-27 | MM_ITS ---
FINAL REPORT CLINICAL HISTORY: rt clip placement FINDINGS: MAMMOGRAM RIGHT 2D TECHNIQUE: Standard digital 2D views COMPARISON: 09/11/2023 DENSITY: There are scattered areas of fibroglandular density FINDINGS: Post biopsy marker clip is noted in satisfactory position. Biopsy marker clip is noted at 7 o'clock position. Postbiopsy changes are noted. IMPRESSION: Biopsy marker clip in good position RECOMMENDATION: Pending histopathology evaluation Authenticated and ERN
--- NOTE | 2023-09-27 07:41 | US_ITS ---
FINAL REPORT CLINICAL HISTORY: EVAL AREA SEEN LOQ 800 -- rt breast bx -- mammatome -- dr. bre culver FINDINGS: ULTRASOUND-GUIDED RIGHT BREAST CORE BIOPSY HISTORY: Right breast lesion TECHNIQUE: The right breast was prepped in a routine sterile fashion and locally anesthetized with 1% lidocaine. Although multiple areas were described in the right breast the most suspicious area was targeted located at 7:00. Other less suspicious lesions are less well seen. Biopsy of the other lesions may be considered if this biopsy were positive for carcinoma. An 11-gauge vacuum-assisted hand-held device was utilized. The needle was positioned posterior to the lesion. Multiple vacuum assisted core samples were obtained. Lesion was noted to be significantly smaller following biopsy. A biopsy marker clip was deployed in satisfactory position. A post biopsy mammogram was performed and dictated separately. Limited postbiopsy images showed no evidence of significant hemorrhage. Marker clip is noted to be in satisfactory position. Procedure was well tolerated. IMPRESSION: 1. Technically successful guided vacuum assisted core biopsy of right breast lesion as above. 2. Biopsy marker clip deployed Authenticated and ERN
== END 2023-09-27 23:59 | disposition home or self-care (01) ==
LOC: RAD 07:41
PROVIDERS: PCP Nurse Practitioner; Visit Provider Nurse Practitioner
DX: D48.61 Neoplasm of uncertain behavior of right breast (principal)
CPT/HCPCS: 19083; 77065; C2618

== ENCOUNTER 2023-10-09 18:00 | Outpatient (CLI) | payer BC, SELFPAY | END 2023-10-09 23:59 | disposition home or self-care (01) | LOC: LAB.DROPOF 10-10 10:39 | PROVIDERS: PCP Nurse Practitioner; Visit Provider Nurse Practitioner | DX: J02.9 Acute pharyngitis, unspecified (principal) | CPT/HCPCS: 87070 ==

== ENCOUNTER 2023-12-05 07:10 | Outpatient (CLI) | payer BC, SELFPAY ==
--- NOTE | 2023-12-05 07:11 | CT_ITS ---
FINAL REPORT CLINICAL HISTORY: possible ventral abdominal hernia COMPARISON: 08/29/2022 FINDINGS: CT ABDOMEN AND PELVIS WITH AND WITHOUT CONTRAST: There is a 6.0 x 4.5 cm soft tissue mass in the inferior aspect of the right breast, best seen on images #4 through 8 of series #5. This mass was not present on the prior CT of 2022. There is a 4 mm nodule in the right lung base, stable when compared with the prior CT, best seen on image #16 of series 5. The liver is normal in size and attenuation. The spleen is unremarkable. The adrenals are normal. The pancreas is unremarkable. The kidneys enhance appropriately. There is a large amount of stool present in the colon. Postoperative changes are noted in the base of the cecum. Precontrast images demonstrate no nephrolithiasis. The fluid density focus in the uterine fundus has decreased in size when compared to the prior exam, now measuring 9 mm in diameter, previously 20 mm in diameter. There are several small cysts or follicles present in the left ovary. IMPRESSION: 6.0 x 4.5 cm soft tissue mass in the inferior right breast as described, not seen on the prior examination. This may represent a hematoma versus neoplasm, and correlation with mammography and physical exam is suggested. The fluid density in the uterine fundus has decreased in size when compared to the prior exam, now measuring 9 mm in diameter, was previously 28 mm in diameter. Several cysts versus follicles are present in the left ovary. Reviewed, Interpreted and Dictated by Lux Rivers MD Transcribed by Daly Patel Authenticated and [facility]
[2023-12-05 07:40] LABS: Blood Urea Nitrogen 13 mg/dl (7-17); Estimated Glomerular Filt Rate 78 ml/min (>60); GFR (African American) 94 ML/MIN (>60)
== END 2023-12-05 23:59 | disposition home or self-care (01) ==
LOC: RAD 07:11
PROVIDERS: PCP Nurse Practitioner; Visit Provider Nurse Practitioner
DX: R19.00 Intra-abdominal and pelvic swelling, mass and lump, unspecified site (principal); R10.9 Unspecified abdominal pain
CPT/HCPCS: 36415; 74178; 82565; 84520; Q9967

== ENCOUNTER 2024-01-17 09:49 | Outpatient (CLI) | payer BC, SELFPAY ==
[2024-01-17 20:49] LABS: Hemoglobin A1C 5.3 % (4.0-6.0)
[2024-01-17 22:01] LABS: Alanine Aminotransferase 26 U/L (12-78); Albumin Level 3.9 g/dl (3.5-5.0); Albumin/Globulin Ratio 1.2 (1.1-1.8); Alkaline Phosphatase 75 U/L (38-126); Anion Gap 9.2 mEq/L (5-15); Aspartate Amino Transferase 26 U/L (14-36); Bilirubin,Total 0.5 mg/dl (0.2-1.3); Blood Urea Nitrogen 13 mg/dl (7-17); Calcium 9.5 mg/dl (8.4-10.2); Carbon Dioxide 27 mmol/L (22.0-30.0); Chloride 104 mmol/L (98-107); Chol/HDL Ratio 3.7 (1-3.5); Cholesterol 156 mg/dl (140-200); Estimated Glomerular Filt Rate 91 ml/min (>60); GFR (African American) 110 ML/MIN (>60); Globulin 3.3 g/dL (1.3-3.2); Glucose 99 mg/dl (74-100); HDL Cholesterol 42 mg/dl (40-60); Potassium 4.2 mmoL/L (3.5-5.1); Sodium 136 mmol/L (136-145); Total Protein,Serum 7.2 g/dl (6.3-8.2); Triglycerides 93 mg/dl (30-150); VLDL Cholesterol 19 mg/dL (0-40)
[2024-01-17 22:12] LABS: Direct LDL Cholesterol 98.44 mg/dL (100-129)
[2024-01-17 22:29] LABS: Thyroid Stimulating Hormone 0.96 uIU/mL (0.465-4.68)
== END 2024-01-17 23:59 | disposition home or self-care (01) ==
LOC: LAB.DROPOF 01-18 13:08
PROVIDERS: PCP Nurse Practitioner; Visit Provider Nurse Practitioner
DX: E78.5 Hyperlipidemia, unspecified (principal); E11.9 Type 2 diabetes mellitus without complications; Z79.85 Long-term (current) use of injectable non-insulin antidiabetic drugs; I10 Essential (primary) hypertension; F17.210 Nicotine dependence, cigarettes, uncomplicated; E66.01 Morbid (severe) obesity due to excess calories; Z68.41 Body mass index [BMI] 40.0-44.9, adult
CPT/HCPCS: 80053; 80061; 83036; 84443

== ENCOUNTER 2024-04-16 11:08 | Outpatient (CLI) | payer BC, SELFPAY ==
[2024-04-16 19:24] LABS: Alanine Aminotransferase 24 U/L (12-78); Albumin Level 3.8 g/dl (3.5-5.0); Albumin/Globulin Ratio 1.4 (1.1-1.8); Alkaline Phosphatase 81 U/L (38-126); Anion Gap 8.8 mEq/L (5-15); Aspartate Amino Transferase 27 U/L (14-36); Bilirubin,Total 0.8 mg/dl (0.2-1.3); Blood Urea Nitrogen 12 mg/dl (7-17); Calcium 9.6 mg/dl (8.4-10.2); Carbon Dioxide 27 mmol/L (22.0-30.0); Chloride 104 mmol/L (98-107); Estimated Glomerular Filt Rate 78 ml/min (>60); GFR (African American) 94 ML/MIN (>60); Globulin 2.7 g/dL (1.3-3.2); Glucose 94 mg/dl (74-100); Potassium 3.8 mmoL/L (3.5-5.1); Sodium 136 mmol/L (136-145); Total Protein,Serum 6.5 g/dl (6.3-8.2)
[2024-04-16 20:50] LABS: Hemoglobin A1C 5.2 % (4.0-6.0)
== END 2024-04-16 23:59 | disposition home or self-care (01) ==
LOC: LAB.DROPOF 04-17 09:06
PROVIDERS: PCP Nurse Practitioner; Visit Provider Nurse Practitioner
DX: E11.9 Type 2 diabetes mellitus without complications (principal); Z79.85 Long-term (current) use of injectable non-insulin antidiabetic drugs
CPT/HCPCS: 80053; 83036

== ENCOUNTER 2024-07-09 09:35 | Outpatient (CLI) | payer BC, SELFPAY ==
[2024-07-09 21:31] LABS: Basophils # 0.1 K/mm3 (0-0.2); Basophils % 0.6 % (0.1-2.0); Eosinophils # 0.2 K/mm3 (0.0-0.4); Eosinophils % 2.6 % (0.1-12.0); Hemoglobin 14.5 g/dL (12.2-16.2); Lymphocytes # 2.6 K/mm3 (0.7-4.5); Lymphocytes % 34.3 % (10-50); Mean Corpuscular Hemoglobin 30.5 pg (27.0-31.2); Mean Corpuscular Volume 92.4 fl (81-99); Mean Platelet Volume 10.8 fl (7.4-10.4); Monocytes # 0.4 K/mm3 (0.1-1.0); Monocytes % 5.2 % (1.7-9.3); Neutrophils # 4.4 K/mm3 (1.8-7.8); Platelet Count 292 K/mm3 (142-424); Red Blood Count 4.76 M/mm3 (4.20-5.40); Red Cell Distribution Width 13.3 % (11.5-17.5); White Blood Count 7.7 K/mm3 (4.8-10.8)
[2024-07-09 23:04] LABS: Alanine Aminotransferase 33 U/L (12-78); Albumin Level 4.2 g/dl (3.5-5.0); Albumin/Globulin Ratio 1.6 (1.1-1.8); Alkaline Phosphatase 69 U/L (38-126); Anion Gap 10.8 mEq/L (5-15); Aspartate Amino Transferase 27 U/L (14-36); Bilirubin,Total 0.5 mg/dl (0.2-1.3); Blood Urea Nitrogen 13 mg/dl (7-17); Calcium 9.6 mg/dl (8.4-10.2); Carbon Dioxide 28 mmol/L (22.0-30.0); Chloride 103 mmol/L (98-107); Chol/HDL Ratio 3.7 (1-3.5); Cholesterol 147 mg/dl (140-200); Estimated Glomerular Filt Rate 78 ml/min (>60); GFR (African American) 94 ML/MIN (>60); Globulin 2.7 g/dL (1.3-3.2); Glucose 96 mg/dl (74-100); HDL Cholesterol 40 mg/dl (40-60); Potassium 3.8 mmoL/L (3.5-5.1); Sodium 138 mmol/L (136-145); Total Protein,Serum 6.9 g/dl (6.3-8.2); Triglycerides 123 mg/dl (30-150); VLDL Cholesterol 25 mg/dL (0-40)
[2024-07-09 23:17] LABS: Direct LDL Cholesterol 85.69 mg/dL (100-129)
[2024-07-09 23:22] LABS: 25-OH Vitamin D, Total 22.9 ng/mL (30-100)
[2024-07-09 23:31] LABS: Hemoglobin A1C 5.2 % (4.0-6.0)
[2024-07-09 23:36] LABS: Thyroid Stimulating Hormone 0.92 uIU/mL (0.465-4.68)
[2024-07-09 23:56] LABS: Vitamin B12 719 pg/mL (239-931)
[2024-07-10 00:02] LABS: Creatinine,Urine Random 410 mg/dL (Not Estab.)
== END 2024-07-09 23:59 | disposition home or self-care (01) ==
LOC: LAB.DROPOF 07-10 12:32
PROVIDERS: PCP Nurse Practitioner; Visit Provider Nurse Practitioner
DX: E11.9 Type 2 diabetes mellitus without complications (principal); I10 Essential (primary) hypertension; E78.5 Hyperlipidemia, unspecified; E66.01 Morbid (severe) obesity due to excess calories; Z68.41 Body mass index [BMI] 40.0-44.9, adult; K21.9 Gastro-esophageal reflux disease without esophagitis
CPT/HCPCS: 80053; 80061; 82043; 82306; 82570; 82607; 83036; 84443; 85025

== ENCOUNTER 2024-09-26 10:11 | Outpatient (CLI) | payer BC, SELFPAY ==
--- OUTSIDE RECORDS SUMMARY | 2024-09-26 10:13 | XMS_ITS | Data Portability ---
Author Organization [facility] WILMAR Oh SCANDIA CLOSED Address [address] [facility] [facility] [place] [address] Assessment Encounter Date Assessment Date Assessment LastModified by Organization Details LastModified Time 12/14/2022 12/14/2022 42-year-old female with a history of UTIs since childhood, chronic constipation, sense of incomplete emptying of the bladder, frequency, and nocturia. She tried laxatives and stool softeners. She said an ultrasound of the ovary showed a full bladder. The bladder scan residual is mild today. UA is negative. We discussed further anatomic and functional workup including renal and bladder ultrasound, cystoscopy, and urodynamics. She would like to proceed. Plan: Schedule renal and bladder ultrasound, cystoscopy, and urodynamics. [email or web address] Not available 12/14/2022 15:33:56 Plan of Treatment Reminders Order Date Submit Date Provider Last Modified By Organization Details Last Modified Time Details Appointments None recorded. Lab urinalysis , dipstick 2022 023 [email or web address] Not available 15:33:57 Referral None recorded. Procedures None recorded. Surgeries None recorded. Imaging US, retroperit oneum, complete 2022 023 [facility] Radiology [facility], [address] [facility], [place], [address], 12:39:10 Medication Orders None recorded. Patient TargetsNo targets recorded. Patient InstructionsNo instructions recorded. Reason for Referral None Reported. Results Created Date Observation Date Name Description Value Unit Range Abnormal Flag Note LastModifiedBy Organization Detail LastModifiedTime 12/15/1912/14/2022 urina lysis , dipst ick Unknown Analyte Yellow Not Available [facility] [address] [place] [address], [address], 12/14/2022 11:17:08 12/15/19 23 12/14/2022 urina lysis , dipst ick Unknown Analyte Clear Not Available [facility] [address] [place] [address], [address], 12/14/2022 11:17:08 12/15/19 23 12/14/2022 urina lysis , dipst ick Unknown Analyte 1.005 Not Available [facility] [address], [address], 12/14/2022 11:17:08 12/15/19 23 12/14/2022 urina lysis , dipst ick Unknown Analyte 6.5 Not Available [facility] [address], [address], 12/14/2022 11:17:08 12/15/19 23 12/14/2022 urina lysis , dipst ick Unknown Analyte Negati ve Not Available [address], [address], 12/14/2022 11:17:08 12/15/19 23 12/14/2022 urina lysis , dipst ick Unknown Analyte Negati ve Not Available [facility] [address], [address], 12/14/2022 11:17:08 12/15/19 23 12/14/2022 urina lysis , dipst ick Unknown Analyte Negati ve Not Available [facility] [address], [address], 12/14/2022 11:17:08 12/15/19 23 12/14/2022 urina lysis , dipst ick Unknown Analyte Normal Not Available [facility] [address] [place], [address], 12/14/2022 11:17:08 12/15/19 23 12/14/2022 urina lysis , dipst ick Unknown Analyte Negati ve Not Available [facility] [address] [place] [address], [address], 12/14/2022 11:17:08 12/15/19 23 12/14/2022 urina lysis , dipst ick Unknown Analyte Normal Not Available [facility] [address] [place] [address], [address], 12/14/2022 11:17:08 12/15/19 23 12/14/2022 urina lysis , dipst ick Unknown Analyte Negati ve Not Available [facility] [address], [address], 12/14/2022 11:17:08 12/15/19 23 12/14/2022 urina lysis , dipst ick Unknown Analyte Negati ve Not Available [facility] [address], [address], 12/14/2022 11:17:08 12/15/19 23 12/14/2022 urina lysis , dipst ick Unknown Analyte Clean Catch Not Available [facility] [address], [address], 12/14/2022 11:17:08 12/15/19 23 12/14/2022 urina lysis , dipst ick Unknown Analyte Visual Not Available [facility] [address], [address], 12/14/2022 11:17:08 12/23/19 23 12/22/2022 US, retro perit oneum , compl ete [address] [address] Patien t Name: GEOVANNA wiley : [address] wiley 53 Orderi ng Provid er: RUFINA PARK EXAM DATE: 2022 EXAM: US KIDNEY BILAT W BLADDE R CLINIC AL INFORM ATION: Freque ncy, urgenc y, noctur ia. TECHNI QUE: Multip le sonogr aphic images of both kidney s were obtain ed. Multip le sonogr aphic images of the urinar y bladde r were obtain ed before and after voidin g. COMPAR ANDREIA: None. FINDIN GS: RIGHT KIDNEY : Length = 11.3 cm. Normal in size for age. Smooth outlin e withou t scarri ng. No hydron ephros is, mass or stone. LEFT KIDNEY : Length = 11.7 cm. Normal in size for age. Smooth outlin e withou t scarri ng. No hydron ephros is, mass or stone. URINAR Y BLADDE R: No echoge shirlene fillin g defect s. Comple te emptyi ng is noted in the post void images . IMPRES MAN: Normal sonogr am of both kidney s and bladde r. Interp reted By: Aline Werner MD Electr onical ly Signed By: Aline Werner MD on 023 12:34 PM [facility] [address] [place], [address], 12/24/2022 17:47:19 Result Notes None recorded. Procedures Surgical History Date Name Laterality Status Provider Name and Address Organization Details Recorded Time 12/15/19 23 Post Void Residual; Ultrasound completed [facility] 12/14/2022 10:38:24 Appendectomy completed [facility] 12/14/2022 10:52:59 Imaging Results Imaging Date Name Status LastModified by Organiz ation Details LastModified Time 12/22/2022 US, retroperitone um, complete completed [facility] [address] [place], [address], 12/24/2022 17:47:19 Procedure Notes None recorded. Medical Equipment None Reported. Allergies Allergen ID Allergen Name Allergen Category Reaction Reaction Severity Criticality Documentation Date Start Date Code Code System Note Provider Name and Address Organization Details Recorded Time 379258 Product containin g penicilli n (product) medicatio n Not available Not available Not available 12/14/2022 52500 8001 SNOMED Mark Lopes [facility] 3 10:52:48 Medications Name Sig Start Date Stop Date Status Note LastModified by Organization Details LastModified Time cyclobenzapr ine 10 mg tablet TAKE 1 TABLET ORALLY THREE TIMES A DAY NEEDED FOR MUSCLE SPASM active Not Available Not Available No t Available metformin 500 mg tablet TAKE 1 TABLET BY MOUTH EVERY DAY active Not Available Not Available No t Available atorvastatin 10 mg tablet TAKE 1 TABLET ORALLY DAILY active Not Available Not Available No t Available azithromycin 250 mg tablet TAKE 2 TABLETS BY MOUTH TODAY, THEN TAKE 1 TABLET DAILY FOR 4 DAYS active Not Available Not Available No t Available ondansetron HCl 4 mg tablet TAKE 1 TABLET BY MOUTH EVERY 8 HOURS NEEDED FOR NAUSEA AND VOMITING active Not Available Not Available No t Available valsartan 160 mg-hydrochlo rothiazide 12.5 mg tablet TAKE 1/2 TABLET BY MOUTH DAILY active Not Available Not Available Not Available omeprazole 40 mg capsule,olman yed release TAKE 1 CAPSULE BY MOUTH EVERY DAY FOR 90 DAYS active Not Available Not Available No t Available tamsulosin 0.4 mg capsule TAKE 1 CAPSULE BY MOUTH EVERY DAY active Not Available Not Available No t Available benzonatate 100 mg capsule TAKE 1 CAPSULE BY MOUTH THREE TIMES A DAY NEEDED NEEDED FOR COUGH active Not Available Not Available No t Available nystatin 100,000 unit/gram topical cream APPLY TOPICALLY 3 TIMES A DAY active Not Available Not Available Not Available methylpredni solone 4 mg tablets in a dose pack TAKE 6 TABLETS ON DAY 1 DIRECTED ON PACKAGE AND DECREASE BY 1 TAB EACH DAY FOR A TOTAL OF 6 DAYS active Not Available Not Available No t Available nitrofuranto in monohydrate/ macrocrystal s 100 mg capsule TAKE 1 CAPSULE BY MOUTH EVERY 12 HOURS FOR 7 DAYS- MUST ADMINISTER WITH A MEAL/FOOD active Not Available Not Available No t Available valsartan 320 mg-hydrochlo rothiazide 12.5 mg tablet TAKE 1 TABLET BY MOUTH EVERY DAY active Not Available Not Available No t Available varenicline tartrate 0.5 mg (11)-1 mg (42) tablets in a dose pack PLEASE SEE ATTACHED FOR DETAILED DIRECTIONS active Not Available Not Available N ot Available hydrochlorot hiazide 12.5 mg tablet TAKE 1 TABLET BY MOUTH EVERY DAY active Not Available Not Available No t Available Ozempic 0.25 mg or 0.5 mg (2 mg/1.5 mL) subcutaneous pen injector INJECT 0.5 MG SUBCUTANEOU SLY WEEKLY FOR 4 DOSES active Not Available Not Available Not Available Sutab 1.479-0.188- 0.225 gram tablet USE DIRECTED-FO LLOW MAILED INSTRUCTION S active Not Available Not Available No t Available Ozempic 1 mg/dose (4 mg/3 mL) subcutaneous pen injector INJECT 1 MG (0.75 ML) SUBCUTANEOU SLY WEEKLY active Not Available Not Available N ot Available Paxlovid 300 mg (150 mg x 2)-100 mg tablets in a dose pack TAKE 2 TABLETS (NIRMATRELV IR) AND TAKE 1 TABLET (RITONAVIR) BY MOUTH TWICE A DAY FOR 5 DAYS active Not Available Not Available N ot Available Vitals None Recorded Social History Question Answer Notes LastModified by Organizat ion Details LastModified Time Tobacco Smoking Status Current Every Day Smoker Mark parker, [facility] 12/14/2022 10:53:57 What Is Your Relationship Status? [email or web address] Information not available 12/14/2022 Sex: Unknown Functional Status Question Answer Note LastModified by Organizat ion Details LastModified Time What is your level of alcohol consumption? None [email or web address] Information not available 12/14/2022 Are you currently employed? 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 Family History Relationship Description Onset Age of this Age Resolved Age Notes LastModified by Organization Details LastModified Time Unspecified Relation Family history of malignant neoplasm colon, stomac h, lung [email or web address] Not available 12/14/2022 10:53:28 Unspecified Relation History of hypertension [email or web address] Not available 10:53:44 Medical History Condition Response High Cholesterol Y Diabetes Y Hypertension N Gynecological HistoryNo gynecological history recorded. Obstetrics History GPAL:G 0 P 0 0 0 0 Past Encounters Encounter ID Performer Location Encounter Start Date Encounter Closed Date Diagnosis/Indication Diagnosis SNOMED-CT Code Diagnosis ICD10 Code Diagnosis Note [id number] RAHEEM PARK MD UROLOGY [facility] [address] [place] [address] 12/14/2022 10:22:03 12/14/2022 15:50:33 Sensation as if urinary bladder still full 408682852 R39.14 Increased frequency of urination 607931044 R35.0 History of urinary tract infection 6101430943 107 Z87.440 Chronic constipation 236 029078 K59.09 Health Concerns Section Related Observation LastModified by Organization Detai ls LastModified Time None Recorded Concern Status LastModified by Organization Details LastModified Time None Recorded Advance Directives Directive None Recorded Payers Insurance Date Sequence Insurance Name Policy Number Policy Rangel Covered Member ID Rangel Member ID Guarantor Name 12/25/2022 1 [place] [id number] Geovanna Harrison [id number] Geovanna Harrison Notes Date Note Type Note Provider Name and Address Organization Details Recorded Time 12/14/2022 text/html 42 year-old whit e female G3, P3 sent in consultation by Kenya Chicas APRN for further evaluation of trouble urinating and incomplete emptying of the bladder. She is here with her Florian. She had UTIs as a child up to age 11. She had a couple UTIs in the past 2 years She has not had a hysterectomy. She has a history of trouble emptying the bladder for a couple years. She denies hesitancy and has fair to good flow but does not feel like she empties completely. She has some double voiding, frequency about every hour, and nocturia 3 times. She denies incontinence. She said an ultrasound of the ovaries showed a full bladder. She has chronic constipation. She tried laxatives and stool softeners. She smokes cigarettes. She denies family history of urologic malignancy or stones. 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 RAHEEM PARK MD [address] [place] [address], [phone], [facility] 12/14/2022 15:35:41 OBGyn Episode No OBEpisode recorded.
[2024-09-26 11:20] LABS: Thyroid Stimulating Hormone 1.33 uIU/mL (0.465-4.68)
[2024-09-27 08:29] LABS: Estradiol 80.4 pg/mL (.); FSH 44.5 mIU/mL (.); LH 47.4 mIU/mL (.); Progesterone 0.3 ng/mL (.); Testosterone,Total 12 ng/dL (4-50)
== END 2024-09-26 23:59 | disposition home or self-care (01) ==
LOC: LAB 10:11
PROVIDERS: PCP Nurse Practitioner; Visit Provider Obstetrics & Gynecology
DX: N95.1 Menopausal and female climacteric states (principal)
CPT/HCPCS: 36415; 82670; 83001; 83002; 84144; 84403; 84443

== ENCOUNTER 2024-10-02 16:03 | Outpatient (CLI) | payer BC, SELFPAY ==
--- OUTSIDE RECORDS SUMMARY | 2024-10-02 16:05 | XMS_ITS | Data Portability ---
Author Organization [facility] WILMAR Oh FRANCONIA CLOSED Address [address] [facility] [address] [place] [address] Assessment Encounter Date Assessment Date Assessment LastModified [...] Imaging US, retroperit oneum, complete 2022 023 [facility] Radiology [facility], [address] [facility], [place], [address], 12:39:10 Medication Orders None recorded. Patient TargetsNo targets recorded. Patient InstructionsNo instructions recorded. Reason for Referral None Reported. Results Created Date Observation Date Name Description Value Unit Range Abnormal Flag Note LastModifiedBy Organization Detail LastModifiedTime 12/15/19 23 12/14/2022 urina lysis , dipst ick Unknown Analyte Yellow Not Available [facility] [address] [place] [address], [address], 12/14/2022 11:17:08 12/15/19 23 12/14/2022 urina lysis , dipst ick Unknown Analyte Clear Not Available [facility] [address] [place] [address], [address], 12/14/2022 11:17:08 12/15/19 23 12/14/2022 urina lysis , dipst ick Unknown Analyte 1.005 Not Available [facility] [address], [address], 12/14/2022 11:17:08 12/15/19 23 12/14/2022 urina lysis , dipst ick Unknown Analyte 6.5 Not Available [facility] [address], [address], 12/14/2022 11:17:08 12/15/19 23 12/14/2022 urina lysis , dipst ick Unknown Analyte Negati ve Not Available [address], [address], 12/14/2022 11:17:08 12/15/19 23 12/14/2022 urina lysis , dipst ick Unknown Analyte Negati ve Not Available [facility] [address], [address], 12/14/2022 11:17:08 12/15/19 23 12/14/2022 urina lysis , dipst ick Unknown Analyte Negati ve Not Available [facility] [address], [address], 12/14/2022 11:17:08 12/15/19 23 12/14/2022 urina lysis , dipst ick Unknown Analyte Normal Not Available [facility] [address] [place], [address], 12/14/2022 11:17:08 12/15/19 23 12/14/2022 urina lysis , dipst ick Unknown Analyte Negati ve Not Available [facility] [address] [place] [address], [address], 12/14/2022 11:17:08 12/15/19 23 12/14/2022 urina lysis , dipst ick Unknown Analyte Normal Not Available [facility] [address] [place] [address], [address], 12/14/2022 11:17:08 12/15/19 23 12/14/2022 urina lysis , dipst ick Unknown Analyte Negati ve Not Available [facility] [address], [address], 12/14/2022 11:17:08 12/15/19 23 12/14/2022 urina lysis , dipst ick Unknown Analyte Negati ve Not Available [facility] [address], [address], 12/14/2022 11:17:08 12/15/19 23 12/14/2022 urina lysis , dipst ick Unknown Analyte Clean Catch Not Available [facility] [address], [address], 12/14/2022 11:17:08 12/15/19 23 12/14/2022 urina lysis , dipst ick Unknown Analyte Visual Not Available [facility] [address], [address], 12/14/2022 11:17:08 12/23/19 23 12/22/2022 US, retro perit oneum , compl ete [address] [address] Patien t Name: GEOVANNA wiley : [phone] [...] Aline Werner MD on 023 12:34 PM [facility] Radiology [facility] [address] [place], [address], 12/24/2022 17:47:19 Result Notes None recorded. Procedures Surgical History Date Name Laterality Status Provider Name and Address Organization Details Recorded Time 12/15/19 23 Post Void Residual; Ultrasound completed [facility] 12/14/2022 10:38:24 Appendectomy completed [facility] 12/14/2022 10:52:59 Imaging Results None recorded. Procedure Notes None recorded. Medical Equipment None Reported. Allergies Allergen ID Allergen Name Allergen Category Reaction Reaction Severity Criticality Documentation Date Start Date Code Code System Note Provider Name and Address Organization Details Recorded Time 059105 Product containin g penicilli n (product) medicatio n Not available Not available Not available 12/14/2022 29071 [facility]131 [facility] Mark Lopes [facility] 3 10:52:48 Medications Name Sig Start Date [...] Smoking Status Current Every Day Smoker Mark Lopes [facility] 12/14/2022 10:53:57 What Is Your Relationship Status? [email or web address] Information not available 12/14/2022 Sex: Unknown Functional Status Question Answer Note LastModified by Organizat ion Details LastModified Time What is your level of alcohol consumption? None [email or web address] Information not available 12/14/2022 Are you currently employed? 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 Family History Relationship Description Onset Age of this Age Resolved Age Notes LastModified by Organization Details LastModified Time Unspecified Relation Family history of malignant neoplasm colon, stomac h, lung [email or web address] Not available 12/14/2022 10:53:28 Unspecified Relation History of hypertension Not available 10:53:44 Medical History Condition Response High Cholesterol Y Diabetes Y Hypertension N Gynecological HistoryNo gynecological history recorded. Obstetrics History GPAL:G 0 P 0 0 0 0 Past Encounters Encounter ID Performer Location Encounter Start Date Encounter Closed Date Diagnosis/Indication Diagnosis SNOMED-CT Code Diagnosis ICD10 Code Diagnosis Note [id number] RAHEEM PARK MD UROLOGY [facility] [address] [place] [address] 12/14/2022 10:22:03 12/14/2022 15:50:33 Sensation as if urinary bladder still full 300455772 R39.14 Increased frequency of urination 303123419 R35.0 History of urinary tract infection 8188816210 107 Z87.440 Chronic constipation 236 857857 K59.09 Health Concerns Section Related Observation LastModified by Organization Detai ls LastModified Time None Recorded Concern Status LastModified by Organization Details LastModified Time None Recorded Advance Directives Directive None Recorded Payers Insurance Date Sequence Insurance Name Policy Number Policy Rangel Covered Member ID Rangel Member ID Guarantor Name 12/25/2022 1 [place] [id number] Geovanna Harrison [id number] Geovanna Harrison Notes Date Note Type [...] urologic malignancy or stones. 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 RAHEEM PARK MD [facility] [place], [address], [place] [facility] 12/14/2022 15:35:41 OBGyn Episode No OBEpisode recorded.
--- NOTE | 2024-10-02 16:30 | MM_ITS ---
PROCEDURE INFORMATION: Exam: MG Bilateral Screening 3D Mammography Exam date and time: 10/02/2024 4:24 PM Age: 44 years old Clinical indication: Screening exam. TECHNIQUE: Imaging protocol: Bilateral Screening tomosynthesis and 2D mammography including computer-aided detection (CAD) when performed. COMPARISON: 1. MG MM CLIP PLACEMENT RT 09/27/2023 8:38 AM 2. MG MM DIG MAMM BI DX W/CAD 09/11/2023 1:06 PM FINDINGS: MAMMOGRAPHY: Breast composition: The breasts are heterogeneously dense, which may obscure small masses. Mass: No suspicious masses. Architectural distortion: None. Calcifications: No suspicious calcifications. Asymmetric density: None. Skin thickening: None. Axillary adenopathy: None. IMPRESSION: 1. No mammographic evidence of malignancy. Annual screening is recommended unless otherwise clinically indicated. 2. Based on the report of the exam dated 09/11/2023 the patient is overdue for bilateral breast ultrasound. ASSESSMENT: BI-RADS Category 1: Negative.
== END 2024-10-02 23:59 | disposition home or self-care (01) ==
LOC: RAD 16:03
PROVIDERS: PCP Nurse Practitioner; Visit Provider Obstetrics & Gynecology
DX: Z12.31 Encounter for screening mammogram for malignant neoplasm of breast (principal); R92.333 Mammographic heterogeneous density, bilateral breasts
CPT/HCPCS: 77063; 77067

== ENCOUNTER 2024-10-08 09:10 | Outpatient (CLI) | payer BC, SELFPAY ==
[2024-10-08 18:45] LABS: Basophils # 0.1 K/mm3 (0-0.2); Basophils % 0.6 % (0.1-2.0); Eosinophils # 0.2 Kmm3 (0.0-0.4); Eosinophils % 2.4 % (0.1-12.0); Hematocrit 45.5 % (37.0-47.0); Hemoglobin 14.7 g/dL (12.2-16.2); Immature Granulocytes # 0.01 10^3uL; Immature Granulocytes % 0.1 %; Lymphocytes # 2.8 K/mm3 (0.7-4.5); Lymphocytes % 34.1 % (10-50); Mean Corpuscular HGB Conc 32.3 g/dL (31.8-35.4); Mean Corpuscular Hemoglobin 30.2 pg (27.0-31.2); Mean Corpuscular Volume 93.4 fl (81-99); Mean Platelet Volume 10.5 fl (7.4-10.4); Monocytes # 0.4 K/mm3 (0.1-1.0); Monocytes % 5.4 % (1.7-9.3); Neutrophils # 4.7 K/mm3 (1.8-7.8); Neutrophils % 57.4 % (37.0-80.0); Nucleated Red Blood Cells # 0 10^3/uL; Nucleated Red Blood Cells % 0 %; Platelet Count 299 K/mm3 (142-424); Red Blood Count 4.87 M/mm3 (4.20-5.40); Red Cell Distribution Width 14.4 % (11.5-17.5); Red Cell Distribution Width-SD 49.1 fL; White Blood Count 8.2 K/mm3 (4.8-10.8)
[2024-10-08 19:08] LABS: 25-OH Vitamin D, Total 32.7 ng/mL (30-100)
[2024-10-08 19:22] LABS: Hemoglobin A1C 5.2 % (4.0-6.0)
[2024-10-11 02:11] LABS: Prolactin 8.7 ng/mL (4.8-33.4)
== END 2024-10-08 23:59 | disposition home or self-care (01) ==
LOC: LAB.DROPOF 10-09 12:56
PROVIDERS: Obstetrics & Gynecology; PCP Nurse Practitioner; Visit Provider Nurse Practitioner
DX: E55.9 Vitamin D deficiency, unspecified (principal); E11.9 Type 2 diabetes mellitus without complications
CPT/HCPCS: 82306; 83036; 84146; 85025

== ENCOUNTER 2024-10-09 09:11 | Outpatient (CLI) | payer BC, SELFPAY ==
--- OUTSIDE RECORDS SUMMARY | 2024-10-09 09:15 | XMS_ITS | Data Portability ---
Author Organization [facility] WILMAR Oh [place] CLOSED Address [address] [place] [address] Assessment Encounter Date Assessment Date Assessment LastModified [...] Imaging US, retroperit oneum, complete 2022 023 [facility], [address] [facility], [place], [address], 12:39:10 Medication Orders None recorded. Patient TargetsNo targets recorded. Patient InstructionsNo instructions recorded. Reason for Referral None Reported. Results Created Date Observation Date Name Description Value Unit Range Abnormal Flag Note LastModifiedBy Organization Detail LastModifiedTime 12/15/19 23 12/14/2022 urina lysis , dipst ick Unknown Analyte Yellow Not Available [facility] [address] [place] [address], [address], 12/14/2022 11:17:08 12/15/19 23 12/14/2022 urina lysis , dipst ick Unknown Analyte Clear Not Available [facility] [address] [place] [address], [address], 12/14/2022 11:17:08 12/15/19 23 12/14/2022 urina lysis , dipst ick Unknown Analyte 1.005 Not Available [facility] [address], [address], 12/14/2022 11:17:08 12/15/19 23 12/14/2022 urina lysis , dipst ick Unknown Analyte 6.5 Not Available [facility] [address], [address], 12/14/2022 11:17:08 12/15/19 23 12/14/2022 urina lysis , dipst ick Unknown Analyte Negati ve Not Available [address], [address], 12/14/2022 11:17:08 12/15/19 23 12/14/2022 urina lysis , dipst ick Unknown Analyte Negati ve Not Available [facility] [address], [address], 12/14/2022 11:17:08 12/15/19 23 12/14/2022 urina lysis , dipst ick Unknown Analyte Negati ve Not Available [facility] [address], [address], 12/14/2022 11:17:08 12/15/19 23 12/14/2022 urina lysis , dipst ick Unknown Analyte Normal Not Available [facility] [address] [place], [address], 12/14/2022 11:17:08 12/15/19 23 12/14/2022 urina lysis , dipst ick Unknown Analyte Negati ve Not Available [facility] [address] [place] [address], [address], 12/14/2022 11:17:08 12/15/19 23 12/14/2022 urina lysis , dipst ick Unknown Analyte Normal Not Available [facility] [address] [place] [address], [address], 12/14/2022 11:17:08 12/15/19 23 12/14/2022 urina lysis , dipst ick Unknown Analyte Negati ve Not Available [facility] [address], [address], 12/14/2022 11:17:08 12/15/19 23 12/14/2022 urina lysis , dipst ick Unknown Analyte Negati ve Not Available [facility] [address], [address], 12/14/2022 11:17:08 12/15/19 23 12/14/2022 urina lysis , dipst ick Unknown Analyte Clean Catch Not Available [facility] [address], [address], 12/14/2022 11:17:08 12/15/19 23 12/14/2022 urina lysis , dipst ick Unknown Analyte Visual Not Available [facility] [address], [address], 12/14/2022 11:17:08 12/23/19 23 12/22/2022 US, retro perit oneum , compl ete [address] [address] Patien t Name: GEOVANNA wiley : 980 [...] Aline Werner MD on 023 12:34 PM [facility] [address] [place], [address], 12/24/2022 17:47:19 Result Notes None recorded. Procedures Surgical History Date Name Laterality Status Provider Name and Address Organization Details Recorded Time 12/15/19 23 Post Void Residual; Ultrasound completed [facility] 12/14/2022 10:38:24 Appendectomy completed [facility] 12/14/2022 10:52:59 Imaging Results None recorded. Procedure Notes None recorded. Medical Equipment None Reported. Allergies Allergen ID Allergen Name Allergen Category Reaction Reaction Severity Criticality Documentation Date Start Date Code Code System Note Provider Name and Address Organization Details Recorded Time 593197 Product containin g penicilli n (product) medicatio n Not available Not available Not available 12/14/2022 01047 1807 [facility] Mark Lopes [facility] 3 10:52:48 Medications Name Sig [...] Status Current Every Day Smoker Mark Lopes [facility] 12/14/2022 10:53:57 What Is Your Relationship Status? [email or web address] Information not available 12/14/2022 Sex: Unknown Functional Status Question Answer Note LastModified by Organizat ion Details LastModified Time What is your level of alcohol consumption? None [email or web address] Information not available 12/14/2022 Are you currently employed? 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 Family History Relationship Description Onset Age of this Age Resolved Age Notes LastModified by Organization Details LastModified Time Unspecified Relation Family history of malignant neoplasm colon, stomac h, lung [email or web address] Not available 12/14/2022 10:53:28 Unspecified Relation History of hypertension [email or web address] Not available 10:53:44 Medical History Condition Response Diabetes Y Hypertension N High Cholesterol Y Gynecological HistoryNo gynecological history recorded. Obstetrics History GPAL:G 0 P 0 0 0 0 Past Encounters Encounter ID Performer Location Encounter Start Date Encounter Closed Date Diagnosis/Indication Diagnosis SNOMED-CT Code Diagnosis ICD10 Code Diagnosis Note [id number] RAHEEM PARK MD [facility]OLOGY [facility] [address] [place] [address] 12/14/2022 10:22:03 12/14/2022 15:50:33 Sensation as if urinary bladder still full 466044913 R39.14 Increased frequency of urination 465893974 R35.0 History of urinary tract infection 8276972161 107 Z87.440 Chronic constipation 236 379504 K59.09 Health Concerns Section Related Observation LastModified by Organization Detai ls LastModified Time None Recorded Concern Status LastModified by Organization Details LastModified Time None Recorded Advance Directives Directive None Recorded Payers Insurance Date Sequence Insurance Name Policy Number Policy Rangel Covered Member ID Rangel Member ID Guarantor Name 12/25/2022 1 [place] [id number] Geovanna Harrison [id number] Geovanna Harrison Notes Date Note Type [...] urologic malignancy or stones. 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 RAHEEM PARK MD [facility] [place], [address], [place] [facility] 12/14/2022 15:35:41 OBGyn Episode No OBEpisode recorded.
--- NOTE | 2024-10-09 09:30 | US_ITS ---
PROCEDURE: US TRANSVAGINAL CLINICAL INDICATION: Premature ovarian failure COMPARISON: CT CT ABDOMEN PELVIS W CON from 08/29/2022 US US TRANSVAGINAL from 09/08/2022 FINDINGS: Transvaginal sonographic images of the pelvis were obtained. UTERUS: 9.5 cm x 5.1cmx 3.9 cm anteverted with a combined endometrial thickness of 3.1mm. The endometrium is difficult to measure. There are nabothian cysts in the cervix that measure 1.2 cm and 0.94 cm respectively. There are fluid-filled areas within the myometrium that are likely post ablation changes. There is a small hyperechoic area within the endometrial cavity. LEFT OVARY: 2.9 cmx3.0cmx2.5cm with a volume of 11.6ml. There is a follicle in the left ovary that measures 2.0 cm x 2.2 cm x 1.8 cm. Within the follicle there is an area of ground-glass appearance that is likely old blood. There are several small peripheral follicles. There is a cystic area inferior to the left ovary that measures 2.4 cm x 0.9 cm. This could be a hydrosalpinx. RIGHT OVARY: 2.1cmx 1.7 cmx1.6 cm with a volume of 2.9ml. There is a small calcification measuring 3 mm within the right ovary. Both ovaries are seen and appear normal. Doppler flow to both ovaries are seen. There is no fluid in the cul-de-sac. IMPRESSION: 1. Anteverted uterus normal in shape and size. The endometrium is difficult to see but measures 3.1 mm. There are cystic changes in the endometrium likely as a result of a previous ablation. 2. Left ovary is seen and appears normal. There is a 2.2 cm follicle and within this follicle there appears to be blood, likely a hemorrhagic cyst. There is an area along the inferior left ovary that is likely a hydrosalpinx. The right ovary appears normal and atrophic. 3. No fluid in the cul-de-sac. Dictated by: Hai Florez MD 10/09/2024 19:32 Hai Florez MD in [place] 10/09/2024 19:32
== END 2024-10-09 23:59 | disposition home or self-care (01) ==
LOC: RAD 09:12
PROVIDERS: PCP Nurse Practitioner; Visit Provider Obstetrics & Gynecology
DX: N83.02 Follicular cyst of left ovary (principal); N85.8 Other specified noninflammatory disorders of uterus; R93.89 Abnormal findings on diagnostic imaging of other specified body structures; E28.39 Other primary ovarian failure
CPT/HCPCS: 76830

== ENCOUNTER 2024-10-17 11:11 | Outpatient (CLI) | payer BC, SELFPAY ==
--- OUTSIDE RECORDS SUMMARY | 2015-11-24 06:55 | XMS_ITS | Continuity of Care Document ---
Author Organization [facility] Address [address] [place] [address] Phone Care Team Providers Care Cook Box Filler Name Role Phone Julio HALEY, Jeremías Unavailable Unavailable Advance Directives Directive Yes / No Effective Date File Name No Information Encounters Encounter Description Practice Location Reason(s) For Visit Diagnoses Date Provider Providers Copied on Encounter [facility] , [address] [facility], [place], [address], [place] tel:[phone] [facility] No Information Julio Veronica. [address] [place] [address], [address], [place], [place], [id number], [place]. tel:[phone] Family History Family Member Type Diagnosis Age At Onset No Information Payers Payer name Insurance type Covered republican ID Authoriza tion(s) No Information Social History Type Description Quantity Date Captured Comments Sex Female Smoking Status No Information Chief Complaint And Reason For Visit No Information Reason For Referral Reason For Referral No Information History Of Present Illness Encounter Date Complaint History Of Prese nt Illness No Information Functional Status Date Functional Assessmen t No Information Instructions Date Instruction Additional Infor mation No Information Assessments Type Assessment Date No Information Patient Care Teams Name Effective Dates (start - stop) Status Members No Information
--- OUTSIDE RECORDS SUMMARY | 2016-06-15 15:40 | XMS_ITS | Encounter Summary ---
Author Organization [place] [address] Care Team Providers Care Patrol Commander Name Role Phone Jose Eduardo Mera MD Primary Care Provider Encounter Details Date Type Department Care Team (Latest Contact Info) Description 06/15/2016 2:40 PM [facility] Hospital Encounter [facility] Referral Lab [address] [place] [address] Nile Albert MD [address] [facility] [address] [place] [address] Radiculopathy of lumbar region Social History Tobacco Use Types Packs/Day Years Used Date Smoking Tobacco: Every Day Cigarettes 1 25.4 Started: 05/07/1999 Smokeless Tobacco: Never Alcohol Use [...] -REF LAB (06/15/2016 3:07 PM EST) Pathologist [facility] Vit D 1,25 43.3 19.9 - 79.3 pg/mL [employer] Comment: INTERPRETIVE INFORMATION: Vitamin D, 1,25-Dihydroxy This test is primarily indicated during patient evaluation for hypercalcemia and renal failure. A normal result does not rule out Vitamin D deficiency. The recommended test for diagnosing Vitamin D deficiency is Vitamin D 25-hydroxy. Performed by [employer], [address] [place] [address] www.[employer], Mitul Birch MD - Lab. Director Blood specimen (specimen) 06/15/2016 3:07 PM EST 06/15/2016 9:06 PM EST Nile Albert MD CHEMISTRY ORDERABLES Kaleigh l Result [employer] [address] [place] [address] * HLA-B27 -REF LAB (06/15/2016 3:07 PM EST) [facility] HLA B27 Negative Negative [employer] Comment: INTERPRETIVE INFORMATION: HLA-B27 HLA-B27 is a serologically defined allele of the human HLA-B locus. The presence of the HLA-B27 antigen is strongly associated with ankylosing spondylitis and related disorders. Test developed and characteristics determined by [employer]. See Compliance Statement B: [employer]/ Performed by [employer], [address] [place] [address] www.[employer], Mitul Birch MD - Lab. Director Blood specimen (specimen) 06/15/2016 3:07 PM EST 06/15/2016 9:16 PM EST Nile Albert MD IMMUNOLOGY ORDERABLES Fin al Result Performing Organization Address [facility] de Phone Number [employer] [facility] [address] [place] [address] * DSDNA AB REFLEX TO TITER -REF LAB (06/15/2016 3:07 PM EST) DNA Ab DS None Detected None Detected [employer] Comment: INTERPRETIVE INFORMATION: Double-Stranded DNA (dsDNA) Antibody, [...] recommendations for testing may be found at http://www.goOutMap.Vaioni/Topics/AutoimmuneDz/ConnectiveTissueDz/i ndex.html. Performed by [employer], [address] [place] [id number] www.[employer], Mitul Birch MD - Lab. Director Blood specimen (specimen) 06/15/2016 3:07 PM EST 06/15/2016 9:06 PM EST Nile Albert MD IMMUNOLOGY ORDERABLES Fin al Result Performing Organization Address [facility] Co de Phone Number [employer] [address] [place] [address] * RHEUMATOID FACTOR QUANTITATIVE (06/15/2016 3:07 PM EST) Pathologist [facility] RF Quant <10 <=14 IU/mL [facility] Blood specimen (specimen) 06/15/2016 3:07 PM EST 06/15/2016 6:17 PM EST Nile Albert MD IMMUNOLOGY ORDERABLES Fin al Result Performing Organization Address [facility] [place] [address] * SEDIMENTATION RATE AUTOMATED (06/15/2016 3:07 PM EST) Sed Rate 10 0 - 20 mm/hr [facility] Blood specimen (specimen) 06/15/2016 3:07 PM EST 06/15/2016 6:16 PM EST Nile Albert MD HEMATOLOGY ORDERABLES Fin al Result Performing Organization Address [facility] [place] [address] * CBC WITH AUTO DIFF (06/15/2016 3:07 PM EST) WBC 10.2 4.0 - 11.0 x10(3)/mcL [facility] RBC 4.55 3.80 - 5.10 x10(6)/mcL [facility] Hgb 13.5 12.0 - 15.6 gm/dL [facility] Hct 40.4 35.7 - 45.9 % [facility] MCV 88.9 82.5 - 99.[address] [facility] MCH 29.7 27.0 - 34.[address] [facility] MCHC 33.4 32.1 - 35.3 gm/dL [facility] RDW 14.5 11.5 - 15.0 % [facility] Platelet 271 144 - 423 x10(3)/mcL [facility] MPV 9.1 6.8 - 10.[address] [facility] Blood specimen (specimen) 06/15/2016 3:07 PM EST 06/15/2016 6:16 PM EST Nile Albert MD HEMATOLOGY ORDERABLES Fin al Result Performing Organization Address [facility] Co de Phone Number [facility] [address] [place] [address] * THYROID STIMULATING HORMONE (06/15/2016 3:07 PM EST) [facility] TSH 1.410 0.270 - 4.200 mcIU/mL [facility] Blood specimen (specimen) 06/15/2016 3:07 PM EST 06/15/2016 6:17 PM EST Nile Albert MD CHEMISTRY ORDERABLES Kaleigh l Result Performing Organization Address [facility] Co de Phone Number [facility] [address] [place] [address] * IRON LEVEL (06/15/2016 3:07 PM EST) [facility] Iron 57 30 - 160 mcg/dL [facility] Blood specimen (specimen) 06/15/2016 3:07 PM EST 06/15/2016 6:17 PM EST Nile Albert MD CHEMISTRY ORDERABLES Kaleigh l Result Performing Organization Address [facility] de Phone Number [facility] [address] [place] [address] * CYCLIC CITRULLINATED PEPTIDE ANTIBODY, IGG (06/15/2016 3:07 PM EST) [facility] CCP Ab, IgG <0.5 U/mL [facility] Comment: Negative: < 5.0 U/mL Positive: > or = 5.0 U/mL Blood specimen (specimen) 06/15/2016 3:07 PM EST 06/15/2016 6:17 PM EST Nile Albert MD IMMUNOLOGY ORDERABLES Fin al Result Performing Organization Address [facility] Co de Phone Number [facility] [address] [place] [address] * VITAMIN B12 LEVEL (06/15/2016 3:07 PM EST) Vitamin B12 525 211 - 946 pg/mL [facility] Blood specimen (specimen) 06/15/2016 3:07 PM EST 06/15/2016 6:17 PM EST us Nile Albert MD CHEMISTRY ORDERABLES Kaleigh l Result Performing Organization Address [facility] de Phone Number [facility] [address] [place] [address] * URIC ACID (06/15/2016 3:07 PM EST) Uric Acid 5.2 2.4 - 5.7 mg/dL [facility] Blood specimen (specimen) 06/15/2016 3:07 PM EST 06/15/2016 6:17 PM EST us Nile Albert MD CHEMISTRY ORDERABLES Kaleigh l Result Performing Organization Address [facility] [place] [address] documented in this encounter Visit Diagnoses Diagnosis Radiculopathy of lumbar region Thoracic or lumbosacral neuritis or radiculitis, unspecified documented in this encounter Care Teams Patrol Commander Relationship Specialty Start Date End Date Jose Eduardo Mera MD [address] [place] [address] [address] [place] [address] PCP - General 01/31/11 documented as of this encounter
--- OUTSIDE RECORDS SUMMARY | 2024-10-17 11:18 | XMS_ITS | Data Portability ---
Author Organization [facility] WILMAR Oh [place] CLOSED Address [address] [facility] [facility] [place] [address] Assessment Encounter Date Assessment Date Assessment LastModified [...] Imaging US, retroperit oneum, complete 2022 023 [facility] Radiology [facility], [address] [facility], [place], [address], 12:39:10 Medication Orders None recorded. Patient TargetsNo targets recorded. Patient InstructionsNo instructions recorded. Reason for Referral None Reported. Results Created Date Observation Date Name Description Value Unit Range Abnormal Flag Note LastModifiedBy Organization Detail LastModifiedTime 12/15/19 23 12/14/2022 urina lysis , dipst ick Unknown Analyte Yellow Not Available [facility] [address] [place] [address], [address], 12/14/2022 11:17:08 12/15/19 23 12/14/2022 urina lysis , dipst ick Unknown Analyte Clear Not Available [facility] [address] [place] [address], [address], 12/14/2022 11:17:08 12/15/19 23 12/14/2022 urina lysis , dipst ick Unknown Analyte 1.005 Not Available [facility] [address], [address], 12/14/2022 11:17:08 12/15/19 23 12/14/2022 urina lysis , dipst ick Unknown Analyte 6.5 Not Available [facility] [address], [address], 12/14/2022 11:17:08 12/15/19 23 12/14/2022 urina lysis , dipst ick Unknown Analyte Negati ve Not Available [address], [address], 12/14/2022 11:17:08 12/15/19 23 12/14/2022 urina lysis , dipst ick Unknown Analyte Negati ve Not Available [facility] [address], [address], 12/14/2022 11:17:08 12/15/19 23 12/14/2022 urina lysis , dipst ick Unknown Analyte Negati ve Not Available [facility] [address], [address], 12/14/2022 11:17:08 12/15/19 23 12/14/2022 urina lysis , dipst ick Unknown Analyte Normal Not Available [facility] [address] [place], [address], 12/14/2022 11:17:08 12/15/19 23 12/14/2022 urina lysis , dipst ick Unknown Analyte Negati ve Not Available [facility] [address] [place] [address], [address], 12/14/2022 11:17:08 12/15/19 23 12/14/2022 urina lysis , dipst ick Unknown Analyte Normal Not Available [facility] [address] [place] [address], [address], 12/14/2022 11:17:08 12/15/19 23 12/14/2022 urina lysis , dipst ick Unknown Analyte Negati ve Not Available [facility] [address], [address], 12/14/2022 11:17:08 12/15/19 23 12/14/2022 urina lysis , dipst ick Unknown Analyte Negati ve Not Available [facility] [address], [address], 12/14/2022 11:17:08 12/15/19 23 12/14/2022 urina lysis , dipst ick Unknown Analyte Clean Catch Not Available [facility] [address], [address], 12/14/2022 11:17:08 12/15/19 23 12/14/2022 urina lysis , dipst ick Unknown Analyte Visual Not Available [facility] [address], [address], 12/14/2022 11:17:08 12/23/19 23 12/22/2022 US, retro perit oneum , compl ete [address] [address] Patien t Name: GEOVANNA wiley : 980 [...] Aline Werner MD on 023 12:34 PM [facility]iology [facility] [address] [place], [address], 12/24/2022 17:47:19 Result Notes None recorded. Procedures Surgical History Date Name Laterality Status Provider Name and Address Organization Details Recorded Time 12/15/19 23 Post Void Residual; Ultrasound completed [facility] 12/14/2022 10:38:24 Appendectomy completed [facility] 12/14/2022 10:52:59 Imaging Results None recorded. Procedure Notes None recorded. Medical Equipment None Reported. Allergies Allergen ID Allergen Name Allergen Category Reaction Reaction Severity Criticality Documentation Date Start Date Code Code System Note Provider Name and Address Organization Details Recorded Time 922951 Product containin g penicilli n (product) medicatio n Not available Not available Not available 12/14/2022 56283 [facility] Mark Lopes [facility] 3 10:52:48 Medications Name [...] Status Current Every Day Smoker Mark Lopes [facility] 12/14/2022 10:53:57 What Is Your Relationship Status? [email or web address] Information not available 12/14/2022 Sex: Unknown Functional Status Question Answer Note LastModified by Organizat ion Details LastModified Time What is your level of alcohol consumption? None [email or web address] Information not available 12/14/2022 Are you currently employed? 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 Family History Relationship Description Onset Age of this Age Resolved Age Notes LastModified by Organization Details LastModified Time Unspecified Relation Family history of malignant neoplasm colon, stomac h, lung Not available 12/14/2022 10:53:28 Unspecified Relation History of hypertension [email or web address] Not available 10:53:44 Medical History Condition Response Diabetes Y Hypertension N High Cholesterol Y Gynecological HistoryNo gynecological history recorded. Obstetrics History GPAL:G 0 P 0 0 0 0 Past Encounters Encounter ID Performer Location Encounter Start Date Encounter Closed Date Diagnosis/Indication Diagnosis SNOMED-CT Code Diagnosis ICD10 Code Diagnosis Note [id number] RAHEEM PARK MD UROLOGY [facility] [address] [place] [address] 12/14/2022 10:22:03 12/14/2022 15:50:33 Sensation as if urinary bladder still full 799271413 R39.14 Increased frequency of urination 446781394 R35.0 History of urinary tract infection 8747235297 107 Z87.440 Chronic constipation 236 301365 K59.09 Health Concerns Section Related Observation LastModified by Organization Detai ls LastModified Time None Recorded Concern Status LastModified by Organization Details LastModified Time None Recorded Advance Directives Directive None Recorded Payers Insurance Date Sequence Insurance Name Policy Number Policy Rangel Covered Member ID Rangel Member ID Guarantor Name 12/25/2022 1 [place] [id number] Geovanna Harrison [id number] Geovanna Harrison Notes Date Note Type [...] urologic malignancy or stones. 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 RAHEEM PARK MD [facility] [place], [address], [place] [facility] 12/14/2022 15:35:41 OBGyn Episode No OBEpisode recorded.
--- OUTSIDE RECORDS SUMMARY | 2024-10-17 11:18 | XMS_ITS | Clinical Summary ---
Author Organization Healthcare Address [address] [place] [address] Care Team Providers Care Livestock Exhibitor Name Role Phone Sukh Mera MD Primary Care Provider [phone] Family History Medical History Relation Name Comments Colon cancer Other 1 Breast cancer Other 2 Relation Name Status Comments Other 1 Other 2 Social History Tobacco Use Types Packs/Day Years Used Date Smoking Tobacco: Every Day Alcohol Use Standard Drinks/Week Comments No 0 (1 standard drink = 0.6 oz pur e alcohol) Comments Unknown Sex and Gender Information Value Date Recorded Sex Assigned at Female 10/02/2023 7:27 PM EDT Legal Sex Female 6:00 PM EDT Gender Identity Female 10/02/2023 7:27 PM EDT Sexual Orientation Not on file Last Filed Vital Signs Vital Sign Reading Time Taken Comments Blood Pressure 142/96 02/28/2018 12:43 PM EDT Pulse 84 02/28/2018 12:43 PM EDT Temperature 36.4 C (97.5 F) 02/28/2018 12:43 PM EDT Respiratory Rate 12 02/28/2018 12:43 PM EDT Oxygen Saturation - - Inhaled Oxygen Concentration - - Weight 99.5 kg (219 lb 5.7 oz) 02/28/2018 12:43 PM EDT Height 153.7 cm (5' 0.5 ) 02/28/2018 12:43 PM ED T Body Mass Index 42.14 02/28/2018 12:43 PM EDT Plan of Treatment Health Maintenance Due Date Last Done Comments [facility]-Depression Screening 1979 [facility]-Infant/Child/Adol SDOH Screenings 1979 [facility]-Varicella Vaccines (1 of 2 - 13+ 2-dose series) 07/25/1992 HPV Vaccines (1 - 3-dose series) 07/25/1994 [facility]- SDOH Screenings 07/25/1997 [facility]-Adult SDOH Screenings 07/25/1997 [facility]-DTaP,Tdap,and Td Vaccine s (1 - Tdap) 07/25/1998 [facility]-Hepatitis B Vaccines (1 of 3 - 19+ 3-dose series) 07/25/1998 [facility]-Pap Smear 07/25/2000 [facility]-Cervical Cancer Screening 07/25/2009 [facility]-HPV/Cotest 07/25/2009 [id number] Vaccine (1 - 20 24-25 season) 2024 CT Colonography 07/25/2024 Colonoscopy 07/25/2024 FIT-DNA 07/25/2024 FIT 07/25/2024 FOBT 07/25/2024 Sigmoidoscopy 07/25/2024 [facility]-Colorectal Cancer Screening 07/25/2024 [facility]-Influenza Vaccine (Seaso n Ended) 2025 02/20/2018 [facility]-Zoster Vaccines (1 of 2) 07/25/2029 [facility]-HIB Vaccines Aged Out No longer e ligible based on patient's age to complete this topic [facility]-Hepatitis A Vaccines Aged Out No longer eligible based on patient's age to complete this topic [facility]-IPV Vaccines Aged Out No longer e ligible based on patient's age to complete this topic [facility]-Pneumococcal Vaccine: Pediatrics (0 to 5 Years) and At-Risk Patients (6 to 49 Years) Aged Out No long er eligible based on patient's age to complete this topic [facility]-Rotavirus Vaccines Aged Out No lo nger eligible based on patient's age to complete this topic Care Teams Livestock Exhibitor Relationship Specialty Start Date End Date Sukh Mera MD [address] [place] [address] PCP - General 09/17/20
--- OUTSIDE RECORDS SUMMARY | 2024-10-17 11:19 | XMS_ITS | Clinical Summary ---
Author Organization [facility] Address [address] [place] [address] Phone Care Team Providers Care Manager Recovery Name Role Phone Jose Eduardo Mera MD Primary Care Provider [phone] Allergies Active Allergy Reactions Criticality Noted Date Comments Penicillins 10/07/2010 Medications cyclobenzaprine (FLEXERIL) 10 mg Oral Tablet Take 10 mg by mouth 3 times daily as needed for Muscle spasms. Active nabumetone (RELAFEN) 750 mg Oral Tablet Take 750 mg by mouth daily. Active sertraline (ZOLOFT) 50 mg Oral Tablet Take 50 mg by mouth daily. 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 Surgical History Surgery Date Site/Laterality Comments TUBAL LIGATION 2007 SECTION 2007 LAPAROSCOPIC APPENDECTOMY 01/23/2016 N/A LAPAROSCOPIC APPENDECTOMY WITH LYSIS OF ADHEDISONS.; Surgeon: Oseas Wilkins DO; Location: ED MAIN OR; Service: General Family History Medical History Relation Name Comments Breast Cancer Maternal Grandmother Cancer Mother COLON- Hypertension Mother Allergies Neg Hx Bleeding Prob Neg Hx Hearing Loss Neg Hx Heart Disease Neg Hx Migraines Neg Hx Thyroid Disease Neg Hx Relation Name Status Comments Maternal Grandmother Mother Social History Tobacco Use Types Packs/Day Years Used Date Smoking Tobacco: Every Day Cigarettes 1 25.4 Started: 05/07/1999 Smokeless Tobacco: Never Tobacco Cessation:Ready to Q uit: No Alcohol Use Standard Drinks/Week Comments No 0 (1 standard drink = 0.6 oz pur e alcohol) Sexually Active Control Partners Comments Yes Surgical Male BTL-2007 Comments No Sex and Gender Information Value Date Recorded Sex Assigned at Not on file Legal Sex Female 12:35 AM EDT Gender Identity Not on file Sexual Orientation Not on file Obstetrics History Last Filed Vital Signs Vital Sign Reading Time Taken Comments Blood Pressure 141/94 05/31/2017 4:05 PM EST Pulse 76 05/31/2017 4:05 PM EST Temperature 36.9 C (98.5 F) 01/18/2017 6:40 AM EDT Respiratory Rate 17 01/18/2017 7:42 AM EDT Oxygen Saturation 100% 01/18/2017 7:42 AM EDT Inhaled Oxygen Concentration - - Weight 90.7 kg (200 lb) 05/31/2017 4:05 PM EST Height 152.4 cm (5') 05/31/2017 4:05 PM EST Body Mass Index 39.06 05/31/2017 4:05 PM EST Plan of Treatment Health Maintenance Due Date Last Done Comments Annual Wellness Exam 07/25/1982 DTaP/TDaP/Td (1 - Tdap) 07/25/1998 Hepatitis B Vaccine (1 of 3 - 19+ 3-dose series) 07/25/1998 HPV/Pap Cotest 07/25/2009 Cervical Cancer Screening 10/07/2013 Pap Smear 10/07/2013 10/07/2010 Breast Cancer Screening 2019 COVID-19 Vaccine ( - 2023-2 5 season) 2024 Cologuard 07/25/2024 Colon Cancer Screening 07/25/2024 Colonoscopy 07/25/2024 FIT 07/25/2024 Sigmoidoscopy 07/25/2024 Virtual Colonography 07/25/2024 Influenza Vaccine (Season Ended) 2025 Meningococcal B Vaccine Aged Out No l onger eligible based on patient's age to complete this topic Pneumococcal Vaccine 0-49 Aged Out No longer eligible based on patient's age to complete this topic Procedures Procedure Name Priority Date/Time Associated Diagnosis Comments BOW MACHINE OPERATOR CYTOLOGY REPORT Routine 10/07/2010 4 :41 AM EDT from Last 3 Months or Most Recently Relevant to Health Maintenance Results * BOW MACHINE OPERATOR CYTOLOGY REPORT (10/07/2010 4:41 AM EDT) Insole And Outsole Splitter Cytology Report PATIENT NAME:GEOVANNA SONG Insole And Outsole Splitter Cytology Report Accession Number Collected Date/Time Received Date/Time [id number] 10/07/10 04:41 EDT 10/10/10 04:41 EDT GY Specimen Source Specimen Vag/Cerv/Endocx?: Cervical/Endocervi michelle Statement of Adequacy Satisfactory for Evaluation. Transformation Zone Present. Diagnosis NEGATIVE FOR INTRAEPITHELIAL LESION OR MALIGNANCY. Comment The Pap Smear is a screening test that aids in the detection of cervical cancer and cancer precursors. Both false positive and false negative results can occur. The test should be used at regular intervals, and positive results should be confirmed before definitive therapy. Processed using the GIVVERPrep Surfacer Operator automated cytology screening device (Itaconix). Test Tech: LIZZ 10/11/2010 Completed by: JEREL Camarena (Electronically signed by) 10/11/2010 [facility] 10/07/2010 4:41 AM EDT us Cliff Otto MD PATHOLOGY ORDERABLES Final R esult Performing Organization Address City/State/[facility] Co de Phone Number [facility] [address] [place] [address] from Last 3 Months or Most Recently Relevant to Health Maintenance Insurance NILO PPO ANTHEM PPO ANTHLAM PPO * Guarantor: Geovanna Song Account Type Relation to Patient Date of Phone Billing Address [place] Personal Family Self Advance Directives For more information, please contact: [phone] * Full Code (Latest Code Status on File) Date Activated Date Inactivated Comments 01/23/2016 2:57 AM 01/23/2016 6:50 PM Care Teams Manager Recovery Relationship Specialty Start [place] [address] [place], [place] [address] [phone] PCP - General 01/31/11
[2024-10-18 08:21] LABS: FSH 47.5 mIU/mL (.)
[2024-10-31 15:38] LABS: Miscellaneous Test SCANNED IMAGE
[2024-10-31 15:38] LABS: Miscellaneous Test SCANNED IMAGE
[2024-10-31 18:12] LABS: Cells Analyzed 20 (.); Cells Counted 20 (.); Cells Karyotyped 2 (.); Cytogenetic Result Comment: (.); GTG Band Resolution Achieved 500 (.); Interpretation Comment: (.); Specimen Type Comment: (.)
== END 2024-10-17 23:59 | disposition home or self-care (01) ==
LOC: LAB 11:12
PROVIDERS: PCP Nurse Practitioner; Visit Provider Obstetrics & Gynecology
DX: N95.1 Menopausal and female climacteric states (principal)
CPT/HCPCS: 36415; 83001

== ENCOUNTER 2024-10-24 09:54 | Outpatient (CLI) | payer BC, SELFPAY ==
[2024-10-27 21:18] LABS: Neisseria gonorrhoeae, NAA Negative (Negative)
== END 2024-10-24 23:59 | disposition home or self-care (01) ==
LOC: LAB.DROPOF 10-27 09:55
PROVIDERS: PCP Nurse Practitioner; Visit Provider Obstetrics & Gynecology
DX: R10.2 Pelvic and perineal pain (principal); R39.9 Unspecified symptoms and signs involving the genitourinary system
CPT/HCPCS: 87491; 87591

== ENCOUNTER 2024-10-30 14:40 | Outpatient (CLI) | payer BC, SELFPAY ==
--- OUTSIDE RECORDS SUMMARY | 2016-06-15 15:40 | XMS_ITS | Encounter Summary ---
Author Organization [place] [address] Care Team Providers Care Hotel Housekeeper Name Role Phone Jose Eduardo Mera MD Primary Care Provider [phone] Encounter Details Date Type Department Care Team (Latest Contact Info) Description 06/15/2016 2:40 PM [facility] Hospital Encounter [facility] Referral Lab 1 [place] [address] Nile Albert MD [address] [facility] [address] [place] [address] Radiculopathy of lumbar region Social History Tobacco Use Types Packs/Day Years Used Date Smoking Tobacco: Every Day Cigarettes 1 25.5 Started: 05/07/1999 Smokeless Tobacco: Never Alcohol Use [...] -REF LAB (06/15/2016 3:07 PM EST) Pathologist [facility] Vit D 1,25 43.3 19.9 - 79.3 pg/mL [employer] Comment: INTERPRETIVE INFORMATION: Vitamin D, 1,25-Dihydroxy This test is primarily indicated during patient evaluation for hypercalcemia and renal failure. A normal result does not rule out Vitamin D deficiency. The recommended test for diagnosing Vitamin D deficiency is Vitamin D 25-hydroxy. Performed by [employer], [address] [place] [address] www.[employer], Mitul Birch MD - Lab. Director Blood specimen (specimen) 06/15/2016 3:07 PM EST 06/15/2016 9:06 PM EST Nile Albert MD CHEMISTRY ORDERABLES Kaleigh l Result [employer] [address] [place] [address] * HLA-B27 -REF LAB (06/15/2016 3:07 PM EST) [facility] HLA B27 Negative Negative [employer] Comment: INTERPRETIVE INFORMATION: HLA-B27 HLA-B27 is a serologically defined allele of the human HLA-B locus. The presence of the HLA-B27 antigen is strongly associated with ankylosing spondylitis and related disorders. Test developed and characteristics determined by [employer]. See Compliance Statement B: [employer]/ Performed by [employer], [address] [place] [address] www.[employer], Mitul Birch MD - Lab. Director Blood specimen (specimen) 06/15/2016 3:07 PM EST 06/15/2016 9:16 PM EST Nile Albert MD IMMUNOLOGY ORDERABLES Fin al Result Performing Organization Address [facility] de Phone Number [employer] [facility] [address] [place] [address] * DSDNA AB REFLEX TO TITER -REF LAB (06/15/2016 3:07 PM EST) DNA Ab DS None Detected None Detected [employer] Comment: INTERPRETIVE INFORMATION: Double-Stranded DNA (dsDNA) Antibody, [...] recommendations for testing may be found at http://www.[employer].Quyi Network/Topics/AutoimmuneDz/ConnectiveTissueDz/i ndex.html. Performed by [employer], [address] [place] [id number] www.[employer], Mitul Birch MD - Lab. Director Blood specimen (specimen) 06/15/2016 3:07 PM EST 06/15/2016 9:06 PM EST Nile Albert MD IMMUNOLOGY ORDERABLES Fin al Result Performing Organization Address [facility] Co de Phone Number [employer] [address] [place] [address] * RHEUMATOID FACTOR QUANTITATIVE (06/15/2016 3:07 PM EST) Pathologist [facility] RF Quant <10 <=14 IU/mL [facility] Blood specimen (specimen) 06/15/2016 3:07 PM EST 06/15/2016 6:17 PM EST Nile Albert MD IMMUNOLOGY ORDERABLES Fin al Result Performing Organization Address [facility] [place] [address] * SEDIMENTATION RATE AUTOMATED (06/15/2016 3:07 PM EST) Sed Rate 10 0 - 20 mm/hr [facility] Blood specimen (specimen) 06/15/2016 3:07 PM EST 06/15/2016 6:16 PM EST Nile Albert MD HEMATOLOGY ORDERABLES Fin al Result Performing Organization Address [facility] [place] [address] * CBC WITH AUTO DIFF (06/15/2016 3:07 PM EST) WBC 10.2 4.0 - 11.0 x10(3)/mcL [facility] RBC 4.55 3.80 - 5.10 x10(6)/mcL [facility] Hgb 13.5 12.0 - 15.6 gm/dL [facility] Hct 40.4 35.7 - 45.9 % [facility] MCV 88.9 82.5 - 99.8 fL [facility] MCH 29.7 27.0 - 34.3 pg [facility] MCHC 33.4 32.1 - 35.3 gm/dL [facility] RDW 14.5 11.5 - 15.0 % [facility] Platelet 271 144 - 423 x10(3)/mcL [facility] MPV 9.1 6.8 - 10.8 fL [facility] Blood specimen (specimen) 06/15/2016 3:07 PM EST 06/15/2016 6:16 PM EST Nile Albert MD HEMATOLOGY ORDERABLES Fin al Result Performing Organization Address [facility] Co de Phone Number [facility] [address] [place] [address] * THYROID STIMULATING HORMONE (06/15/2016 3:07 PM EST) [facility] TSH 1.410 0.270 - 4.200 mcIU/mL [facility] Blood specimen (specimen) 06/15/2016 3:07 PM EST 06/15/2016 6:17 PM EST Nile Albert MD CHEMISTRY ORDERABLES Kaleigh l Result Performing Organization Address [facility] Co de Phone Number [facility] [address] [place] [address] * IRON LEVEL (06/15/2016 3:07 PM EST) [facility] Iron 57 30 - 160 mcg/dL [facility] Blood specimen (specimen) 06/15/2016 3:07 PM EST 06/15/2016 6:17 PM EST Nile Albert MD CHEMISTRY ORDERABLES Kaleigh l Result Performing Organization Address [facility] de Phone Number [facility] [address] [place] [address] * CYCLIC CITRULLINATED PEPTIDE ANTIBODY, IGG (06/15/2016 3:07 PM EST) [facility] CCP Ab, IgG <0.5 U/mL [facility] Comment: Negative: < 5.0 U/mL Positive: > or = 5.0 U/mL Blood specimen (specimen) 06/15/2016 3:07 PM EST 06/15/2016 6:17 PM EST Nile Albert MD IMMUNOLOGY ORDERABLES Fin al Result Performing Organization Address [facility] Co de Phone Number [facility] [address] [place] [address] * VITAMIN B12 LEVEL (06/15/2016 3:07 PM EST) Vitamin B12 525 211 - 946 pg/mL [facility] Blood specimen (specimen) 06/15/2016 3:07 PM EST 06/15/2016 6:17 PM EST us Nile Albert MD CHEMISTRY ORDERABLES Kaleigh l Result Performing Organization Address [facility] de Phone Number [facility] 1 [place] [address] * URIC ACID (06/15/2016 3:07 PM EST) Uric Acid 5.2 2.4 - 5.7 mg/dL [facility] Blood specimen (specimen) 06/15/2016 3:07 PM EST 06/15/2016 6:17 PM EST us Nile Albert MD CHEMISTRY ORDERABLES Kaleigh l Result Performing Organization Address [facility] [place] [address] documented in this encounter Visit Diagnoses Diagnosis Radiculopathy of lumbar region Thoracic or lumbosacral neuritis or radiculitis, unspecified documented in this encounter Care Teams Hotel Housekeeper Relationship Specialty Start Date End Date Jose Eduardo Mera MD [address] [place] [address] [address] [place] [address] PCP - General 01/31/11 documented as of this encounter
--- OUTSIDE RECORDS SUMMARY | 2024-10-30 14:43 | XMS_ITS | Data Portability ---
Author Organization [facility] WILMAR Oh BAILEY CLOSED Address [address] [facility] [place] [address] Assessment Encounter Date Assessment Date Assessment LastModified [...] , dipstick 2022 023 [email or web address] Not available 3 15:33:57 Referral None recorded. Procedures None recorded. Surgeries None recorded. Imaging US, retroperit oneum, complete 2022 023 [facility] Radiology [facility], [address] [place], [address], 3 12:39:10 Medication Orders None recorded. Patient TargetsNo targets recorded. Patient InstructionsNo instructions recorded. Reason for Referral None Reported. Results Created Date Observation Date Name Description Value Unit Range Abnormal Flag Note LastModifiedBy Organization Detail LastModifiedTime 12/15/19 23 12/14/2022 urina lysis , dipst ick Unknown Analyte Yellow Not Available [facility] [address] [place], [address], 12/14/2022 11:17:08 12/15/19 23 12/14/2022 urina lysis , dipst ick Unknown Analyte Clear Not Available [facility] [address] [place] [address], [address], 12/14/2022 11:17:08 12/15/19 23 12/14/2022 urina lysis , dipst ick Unknown Analyte 1.005 Not Available [facility] [address] [place] [address], [address], 12/14/2022 11:17:08 12/15/19 23 12/14/2022 urina lysis , dipst ick Unknown Analyte 6.5 Not Available [facility] [address] [place] [address], [address], 12/14/2022 11:17:08 12/15/19 23 12/14/2022 urina lysis , dipst ick Unknown Analyte Negati ve Not Available [facility] [address] [place] [address], [address], 12/14/2022 11:17:08 12/15/19 23 12/14/2022 urina lysis , dipst ick Unknown Analyte Negati ve Not Available [facility] [address] [place] [address], [address], 12/14/2022 11:17:08 12/15/19 23 12/14/2022 urina lysis , dipst ick Unknown Analyte Negati ve Not Available [facility] [address] [place] [address], [address], 12/14/2022 11:17:08 12/15/19 23 12/14/2022 urina lysis , dipst ick Unknown Analyte Normal Not Available [facility] [address] [place], [address], 12/14/2022 11:17:08 12/15/19 23 12/14/2022 urina lysis , dipst ick Unknown Analyte Negati ve Not Available [facility] [address] [place] [address], [address], 12/14/2022 11:17:08 12/15/19 23 12/14/2022 urina lysis , dipst ick Unknown Analyte Normal Not Available [facility] [address] [place] [address], [address], 12/14/2022 11:17:08 12/15/19 23 12/14/2022 urina lysis , dipst ick Unknown Analyte Negati ve Not Available [facility] [address], [address], 12/14/2022 11:17:08 12/15/19 23 12/14/2022 urina lysis , dipst ick Unknown Analyte Negati ve Not Available [facility] [address], [address], 12/14/2022 11:17:08 12/15/19 23 12/14/2022 urina lysis , dipst ick Unknown Analyte Clean Catch Not Available [facility] [address], [address], 12/14/2022 11:17:08 12/15/19 23 12/14/2022 urina lysis , dipst ick Unknown Analyte Visual Not Available [facility] [address], [address], 12/14/2022 11:17:08 12/23/19 23 12/22/2022 US, retro perit oneum , compl ete [address] [address] Patien t Name: GEOVANNA wiley : [address] Orderi ng Provid er: RUFINA PARK [...] Aline Werner MD on 023 12:34 PM [facility] Radiology [facility] [address] [place], [address], 12/24/2022 17:47:19 Result Notes None recorded. Procedures Surgical History Date Name Laterality Status Provider Name and Address Organization Details Recorded Time 12/15/19 23 Post Void Residual; Ultrasound completed [facility] 12/14/2022 10:38:24 Appendectomy completed [facility] 12/14/2022 10:52:59 Imaging Results None recorded. Procedure Notes None recorded. Medical Equipment None Reported. Allergies Allergen ID Allergen Name Allergen Category Reaction Reaction Severity Criticality Documentation Date Start Date Code Code System Note Provider Name and Address Organization Details Recorded Time 004809 Product containin g penicilli n (product) medicatio n Not available Not available Not available 12/14/2022 12254 8001 SNOMED Mark Moses [facility] 3 10:52:48 Medications Name Sig Start Date [...] History Question Answer Notes LastModified by Organizat [employer] Details LastModified Time Tobacco Smoking Status Current Every Day Smoker [facility] 12/14/2022 10:53:57 What Is Your Relationship Status? Information not available 12/14/2022 Sex: Unknown Functional Status Question Answer Note LastModified by Organizat ion Details LastModified Time What is your level of alcohol consumption? None [email or web address] Information not available 12/14/2022 Are you currently employed? 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 Family History Relationship Description Onset Age of this Age Resolved Age Notes LastModified by Organization Details LastModified Time Unspecified Relation Family history of malignant neoplasm colon, stomac h, lung [email or web address] Not available 12/14/2022 10:53:28 Unspecified Relation History of hypertension [email or web address] Not available 10:53:44 Medical History Condition Response Diabetes Y Hypertension N High Cholesterol Y Gynecological HistoryNo gynecological history recorded. Obstetrics History GPAL:G 0 P 0 0 0 0 Past Encounters Encounter ID Performer Location Encounter Start Date Encounter Closed Date Diagnosis/Indication Diagnosis SNOMED-CT Code Diagnosis ICD10 Code Diagnosis Note [id number] RAHEEM PARK MD UROLOGY [facility] [address] [place] [address] 12/14/2022 10:22:03 12/14/2022 15:50:33 Sensation as if urinary bladder still full 426824707 R39.14 Increased frequency of urination 620322433 R35.0 History of urinary tract infection 1485631314 107 Z87.440 Chronic constipation 236 983135 K59.09 Health Concerns Section Related Observation LastModified by Organization Detai ls LastModified Time None Recorded Concern Status LastModified by Organization Details LastModified Time None Recorded Advance Directives Directive None Recorded Payers Insurance Date Sequence Insurance Name Policy Number Policy Rangel Covered Member ID Rangel Member ID Guarantor Name 12/25/2022 1 [place] [id number] Geovanna Harrison [id number] Geovanna Harrison Notes Date Note Type [...] urologic malignancy or stones. 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 RAHEEM PARK MD [facility] [place], [address], [facility] 12/14/2022 15:35:41 OBGyn Episode No OBEpisode recorded.
--- OUTSIDE RECORDS SUMMARY | 2024-10-30 14:45 | XMS_ITS | Clinical Summary ---
Author Organization Healthcare Address [address] [place] [address] Care Team Providers Care Silk Folder Name Role Phone Sukh Mera MD Primary Care Provider [phone] Family History Medical History Relation Name Comments [...] 07/25/2000 [facility]-Cervical Cancer Screening 07/25/2009 [facility]-HPV/Cotest 07/25/2009 [id number] Vaccine (1 - 20 24-25 season) 2024 [...] age to complete this topic Care Teams Silk Folder Relationship Specialty Start Date End Date Sukh Mera MD [address] [place] [address] PCP - General 09/17/20
--- OUTSIDE RECORDS SUMMARY | 2024-10-30 14:45 | XMS_ITS | Clinical Summary ---
Author Organization [facility] Address [address] [place] [address] Phone Care Team Providers Care Shirt Line Operator Name Role Phone Jose Eduardo Mera MD Primary Care Provider [phone] Allergies Active Allergy Reactions Criticality Noted Date [...] 1 25.5 Started: 05/07/1999 Smokeless Tobacco: Never Tobacco Cessation:Ready [...] Procedure Name Priority Date/Time Associated Diagnosis Comments PATENT COUNSEL CYTOLOGY REPORT Routine 10/07/2010 4 :41 AM EDT from Last 3 Months or Most Recently Relevant to Health Maintenance Results * PATENT COUNSEL CYTOLOGY REPORT (10/07/2010 4:41 AM EDT) Commercial Or Institutional Cleaner Cytology Report PATIENT NAME:GEOVANNA SONG Commercial Or Institutional Cleaner Cytology Report Accession Number Collected Date/Time Received Date/Time [id number] 10/07/10 04:41 EDT 10/10/10 04:41 EDT GY [...] confirmed before definitive therapy. Processed using the milliPay SystemsPrep Travel Registered Nurse Pacu automated cytology screening device (JustShareIt). Abrasive Coating Machine Operator: LIZZ 10/11/2010 Completed by: JEREL Camarena (Electronically signed by) 10/11/2010 [facility] Laboratory [facility] 10/07/2010 4:41 AM EDT us Cliff Otto MD PATHOLOGY ORDERABLES Final R esult Performing Organization Address City/State/[facility] Co de Phone Number [facility] [address] [place] [address] from Last 3 Months or Most Recently Relevant to Health Maintenance Insurance NILO PPO ANTHEM PPO ANTHLAM PPO * Guarantor: Geovanna Song Account Type Relation to Patient Date of Phone Billing Address [place] Personal Family Self Advance Directives For more information, please contact: [phone] * Full Code (Latest Code Status on File) Date Activated Date Inactivated Comments 01/23/2016 2:57 AM 01/23/2016 6:50 PM Care Teams Shirt Line Operator Relationship Specialty Start [place] [address] [place], [place] [address]MONIE [address] [phone] PCP - General 01/31/11
--- NOTE | 2024-10-30 15:00 | US_ITS ---
PROCEDURE: US TRANSVAGINAL CLINICAL INDICATION: premature ovarian failure COMPARISON: CT CT ABDOMEN PELVIS WO/W CON from 12/05/2023 US US TRANSVAGINAL from 10/09/2024 FINDINGS: Transvaginal sonographic images of the pelvis were obtained. UTERUS: 8.6 cm x 4.5cmx 4.3cm anteverted with a combined endometrial thickness of 6.8mm. There are several small nabothian cysts measuring 0.45 cm and 0.9 cm There is a 1 cm x 1 cm cystic area within the anterior myometrium within her scar. LEFT OVARY: 3.4cmx2.5 cm x2.3cm with a volume of 10.6ml. There are 2 small follicles in the inferior left ovary measuring 1.2 cm and 1.7 cm. RIGHT OVARY: 1.7 cmx 2.0cmx1.3cm with a volume of 2.3ml. The right ovary appears atrophic. There are 2 small calcifications within the right ovary. Both ovaries are seen and appear normal. Doppler flow to both ovaries are seen. There is no fluid in the cul-de-sac. IMPRESSION: 1. Anteverted uterus normal in shape and size. There are several small nabothian cysts in the cervix. The endometrium is difficult to measure as result of her previous ablation. There is a fluid collection within the anterior myometrium that measures 1 cm x 1 cm within the scar. 2. The left ovary is seen and appears normal. It contains 2 small follicles. The right ovary appears atrophic. 3. No fluid in the cul-de-sac. Dictated by: Hai Florez MD 10/31/2024 05:44 Hai Florez MD in OV 10/31/2024 05:44
== END 2024-10-30 23:59 | disposition home or self-care (01) ==
LOC: RAD 14:40
PROVIDERS: PCP Nurse Practitioner; Visit Provider Obstetrics & Gynecology
DX: N88.8 Other specified noninflammatory disorders of cervix uteri (principal)
CPT/HCPCS: 76830

== ENCOUNTER 2024-11-05 11:35 | Outpatient (CLI) | payer BC, SELFPAY ==
--- OUTSIDE RECORDS SUMMARY | 2016-06-15 15:40 | XMS_ITS | Encounter Summary ---
Author Organization [place] [address] Care Team Providers Care Optometry Professor Name Role Phone Jose Eduardo Mera MD Primary Care Provider [phone] Encounter Details Date Type Department Care Team (Latest Contact Info) Description 06/15/2016 2:40 PM [facility] Hospital Encounter [facility] Referral Lab 1 [place] [address] Nile Albert MD [address] [facility] [address] [place] [address] Radiculopathy of lumbar region Social History Tobacco [...] -REF LAB (06/15/2016 3:07 PM EST) Pathologist [facility] Vit D 1,25 43.3 19.9 - 79.3 pg/mL [employer] Comment: INTERPRETIVE INFORMATION: Vitamin D, 1,25-Dihydroxy This test is primarily indicated during patient evaluation for hypercalcemia and renal failure. A normal result does not rule out Vitamin D deficiency. The recommended test for diagnosing Vitamin D deficiency is Vitamin D 25-hydroxy. Performed by [employer], [address] [place] [address] www.[employer], Mitul Birch MD - Lab. Director Blood specimen (specimen) 06/15/2016 3:07 PM EST 06/15/2016 9:06 PM EST Nile Albert MD CHEMISTRY ORDERABLES Kaleigh l Result [employer] [address] [place] [address] * HLA-B27 -REF LAB (06/15/2016 3:07 PM EST) [facility] HLA B27 Negative Negative [employer] Comment: INTERPRETIVE INFORMATION: HLA-B27 HLA-B27 is a serologically defined allele of the human HLA-B locus. The presence of the HLA-B27 antigen is strongly associated with ankylosing spondylitis and related disorders. Test developed and characteristics determined by [employer]. See Compliance Statement B: [employer]/ Performed by [employer], [address] [place] [address] www.[employer], Mitul Birch MD - Lab. Director Blood specimen (specimen) 06/15/2016 3:07 PM EST 06/15/2016 9:16 PM EST Nile Albert MD IMMUNOLOGY ORDERABLES Fin al Result Performing Organization Address [facility] de Phone Number [employer] [facility] [address] [place] [address] * DSDNA AB REFLEX TO TITER -REF LAB (06/15/2016 3:07 PM EST) DNA Ab DS None Detected None Detected [employer] Comment: INTERPRETIVE INFORMATION: Double-Stranded DNA (dsDNA) Antibody, [...] recommendations for testing may be found at http://www.[employer].YOOSE/Topics/AutoimmuneDz/ConnectiveTissueDz/i ndex.html. Performed by [employer], [address] [place] [id number] www.[employer], Mitul Birch MD - Lab. Director Blood specimen (specimen) 06/15/2016 3:07 PM EST 06/15/2016 9:06 PM EST Nile Albert MD IMMUNOLOGY ORDERABLES Fin al Result Performing Organization Address [facility] Co de Phone Number [employer] [address] [place] [address] * RHEUMATOID FACTOR QUANTITATIVE (06/15/2016 3:07 PM EST) Pathologist [facility] RF Quant <10 <=14 IU/mL [facility] Blood specimen (specimen) 06/15/2016 3:07 PM EST 06/15/2016 6:17 PM EST Nile Albert MD IMMUNOLOGY ORDERABLES Fin al Result Performing Organization Address [facility] [place] [address] * SEDIMENTATION RATE AUTOMATED (06/15/2016 3:07 PM EST) Sed Rate 10 0 - 20 mm/hr [facility] Blood specimen (specimen) 06/15/2016 3:07 PM EST 06/15/2016 6:16 PM EST Nile Albert MD HEMATOLOGY ORDERABLES Fin al Result Performing Organization Address [facility] [place] [address] * CBC WITH AUTO DIFF (06/15/2016 3:07 PM EST) WBC 10.2 4.0 - 11.0 x10(3)/mcL [facility] RBC 4.55 3.80 - 5.10 x10(6)/mcL [facility] Hgb 13.5 12.0 - 15.6 gm/dL [facility] Hct 40.4 35.7 - 45.9 % [facility] MCV 88.9 82.5 - 99.8 fL [facility] MCH 29.7 27.0 - 34.3 pg [facility] MCHC 33.4 32.1 - 35.3 gm/dL [facility] RDW 14.5 11.5 - 15.0 % [facility] Platelet 271 144 - 423 x10(3)/mcL [facility] MPV 9.1 6.8 - 10.8 fL [facility] Blood specimen (specimen) 06/15/2016 3:07 PM EST 06/15/2016 6:16 PM EST Nile Albert MD HEMATOLOGY ORDERABLES Fin al Result Performing Organization Address [facility] Co de Phone Number [facility] [address] [place] [address] * THYROID STIMULATING HORMONE (06/15/2016 3:07 PM EST) [facility] TSH 1.410 0.270 - 4.200 mcIU/mL [facility] Blood specimen (specimen) 06/15/2016 3:07 PM EST 06/15/2016 6:17 PM EST Nile Albert MD CHEMISTRY ORDERABLES Kaleigh l Result Performing Organization Address [facility] Co de Phone Number [facility] [address] [place] [address] * IRON LEVEL (06/15/2016 3:07 PM EST) [facility] Iron 57 30 - 160 mcg/dL [facility] Blood specimen (specimen) 06/15/2016 3:07 PM EST 06/15/2016 6:17 PM EST Nile Albert MD CHEMISTRY ORDERABLES Kaleigh l Result Performing Organization Address [facility] de Phone Number [facility] [address] [place] [address] * CYCLIC CITRULLINATED PEPTIDE ANTIBODY, IGG (06/15/2016 3:07 PM EST) [facility] CCP Ab, IgG <0.5 U/mL [facility] Comment: Negative: < 5.0 U/mL Positive: > or = 5.0 U/mL Blood specimen (specimen) 06/15/2016 3:07 PM EST 06/15/2016 6:17 PM EST Nile Albert MD IMMUNOLOGY ORDERABLES Fin al Result Performing Organization Address [facility] Co de Phone Number [facility] [address] [place] [address] * VITAMIN B12 LEVEL (06/15/2016 3:07 PM EST) Vitamin B12 525 211 - 946 pg/mL [facility] Blood specimen (specimen) 06/15/2016 3:07 PM EST 06/15/2016 6:17 PM EST us Nile Albert MD CHEMISTRY ORDERABLES Kaleigh l Result Performing Organization Address [facility] de Phone Number [facility] [address] [place] [address] * URIC ACID (06/15/2016 3:07 PM EST) Uric Acid 5.2 2.4 - 5.7 mg/dL [facility] Blood specimen (specimen) 06/15/2016 3:07 PM EST 06/15/2016 6:17 PM EST us Nile Albert MD CHEMISTRY ORDERABLES Kaleigh l Result Performing Organization Address [facility] [place] [address] documented in this encounter Visit Diagnoses Diagnosis Radiculopathy of lumbar region Thoracic or lumbosacral neuritis or radiculitis, unspecified documented in this encounter Care Teams Optometry Professor Relationship Specialty Start Date End Date Jose Eduardo Mera MD [address] [place] [address] [address] [place] [address] PCP - General 01/31/11 documented as of this encounter
--- OUTSIDE RECORDS SUMMARY | 2024-11-05 11:38 | XMS_ITS | Clinical Summary ---
Author Organization Healthcare Address [address] [id number] Care Team Providers Care Commercial Leasing Manager Name Role Phone Sukh Mera MD Primary Care Provider [phone] Family History Medical History Relation Name Comments [...] Date Last Done Comments [facility]-Depression Screening 1979 [facility]-/Child/Adol SDOH Screenings 1979 [facility]-Varicella Vaccines (1 of 2 - 13+ 2-dose series) 07/25/1992 HPV Vaccines (1 - 3-dose series) 07/25/1994 [facility]- SDOH Screenings 07/25/1997 [facility]-Adult SDOH Screenings 07/25/1997 [facility]-DTaP,Tdap,and Td Vaccine s (1 - Tdap) 07/25/1998 [facility]-Hepatitis B Vaccines (1 of 3 - 19+ 3-dose series) 07/25/1998 [facility]-Pap Smear 07/25/2000 [facility]-Cervical Cancer Screening 07/25/2009 [facility]-HPV/Cotest 07/25/2009 [id number] Vaccine (1 - 20 24-25 season) 2024 CT Colonography 07/25/2024 Colonoscopy 07/25/2024 FIT-DNA 07/25/2024 FIT 07/25/2024 FOBT 07/25/2024 Sigmoidoscopy 07/25/2024 [facility]-Colorectal Cancer Screening 07/25/2024 [facility]-Influenza Vaccine (#1) 2025 02/20/2018 [facility]-Zoster Vaccines (1 of 2) [...] age to complete this topic Care Teams Commercial Leasing Manager Relationship Specialty Start Date End Date Sukh Mera MD [address] [place] [address] PCP - General 09/17/20
--- OUTSIDE RECORDS SUMMARY | 2024-11-05 11:38 | XMS_ITS | Data Portability ---
Author Organization [facility] WILMAR Oh [place] CLOSED Address [address] [facility] [address] [place] [address] Assessment Encounter Date Assessment Date Assessment LastModified [...] Imaging US, retroperit oneum, complete 2022 023 [facility] Radiology [facility], [address] [place], [address], 3 12:39:10 Medication Orders None recorded. Patient TargetsNo targets recorded. Patient InstructionsNo instructions recorded. Reason for Referral None Reported. Results Created Date Observation Date Name Description Value Unit Range Abnormal Flag Note LastModifiedBy Organization Detail LastModifiedTime 12/15/19 23 12/14/2022 urina lysis , dipst ick Unknown Analyte Yellow Not Available [facility] [address] [place], [address], 12/14/2022 11:17:08 12/15/19 23 12/14/2022 urina lysis , dipst ick Unknown Analyte Clear Not Available [facility] [address] [place] [address], [address], 12/14/2022 11:17:08 12/15/19 23 12/14/2022 urina lysis , dipst ick Unknown Analyte 1.005 Not Available [facility] [address] [place] [address], [address], 12/14/2022 11:17:08 12/15/19 23 12/14/2022 urina lysis , dipst ick Unknown Analyte 6.5 Not Available [facility] [address] [place] [address], [address], 12/14/2022 11:17:08 12/15/19 23 12/14/2022 urina lysis , dipst ick Unknown Analyte Negati ve Not Available [facility] [address] [place] [address], [address], 12/14/2022 11:17:08 12/15/19 23 12/14/2022 urina lysis , dipst ick Unknown Analyte Negati ve Not Available [facility] [address] [place] [address], [address], 12/14/2022 11:17:08 12/15/19 23 12/14/2022 urina lysis , dipst ick Unknown Analyte Negati ve Not Available [facility] [address] [place] [address], [address], 12/14/2022 11:17:08 12/15/19 23 12/14/2022 urina lysis , dipst ick Unknown Analyte Normal Not Available [facility] [address] [place], [address], 12/14/2022 11:17:08 12/15/19 23 12/14/2022 urina lysis , dipst ick Unknown Analyte Negati ve Not Available [facility]rology [address] [place] [address], [address], 12/14/2022 11:17:08 12/15/19 23 12/14/2022 urina lysis , dipst ick Unknown Analyte Normal Not Available [facility] [address] [place] [address], [address], 12/14/2022 11:17:08 12/15/19 23 12/14/2022 urina lysis , dipst ick Unknown Analyte Negati ve Not Available [facility] [address], [address], 12/14/2022 11:17:08 12/15/19 23 12/14/2022 urina lysis , dipst ick Unknown Analyte Negati ve Not Available [facility] [address], [address], 12/14/2022 11:17:08 12/15/19 23 12/14/2022 urina lysis , dipst ick Unknown Analyte Clean Catch Not Available [facility] [address], [address], 12/14/2022 11:17:08 12/15/19 23 12/14/2022 urina lysis , dipst ick Unknown Analyte Visual Not Available [facility] [address], [address], 12/14/2022 11:17:08 12/23/19 23 12/22/2022 US, retro perit oneum , compl ete [address] [address] Patien t Name: GEOVANNA wiley : [address] [...] Aline Werner MD on 023 12:34 PM [facility] Radiology [facility] [address] [place], [address], 12/24/2022 17:47:19 Result Notes None recorded. Procedures Surgical History Date Name Laterality Status Provider Name and Address Organization Details Recorded Time 12/15/19 23 Post Void Residual; Ultrasound completed [facility] 12/14/2022 10:38:24 Appendectomy completed [facility] 12/14/2022 10:52:59 Imaging Results None recorded. Procedure Notes None recorded. Medical Equipment None Reported. Allergies Allergen ID Allergen Name Allergen Category Reaction Reaction Severity Criticality Documentation Date Start Date Code Code System Note Provider Name and Address Organization Details Recorded Time 207860 Product containin g penicilli n (product) medicatio n Not available Not available Not available 12/14/2022 36169 8001 SNOMED Mark Moses [facility] 3 10:52:48 Medications Name Sig [...] History Question Answer Notes LastModified by Organizat [employer] Details LastModified Time Tobacco Smoking Status Current Every Day Smoker Mark Lopes [facility] 12/14/2022 10:53:57 What Is Your Relationship Status? [email or web address] Information not available 12/14/2022 Sex: Unknown Functional Status Question Answer Note LastModified by Organizat ion Details LastModified Time What is your level of alcohol consumption? None [email or web address] Information not available 12/14/2022 Are you currently employed? 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 Family History Relationship Description Onset Age of this Age Resolved Age Notes LastModified by Organization Details LastModified Time Unspecified Relation Family history of malignant neoplasm colon, stomac h, lung [email or web address] Not available 12/14/2022 10:53:28 Unspecified Relation History of hypertension [email or web address] Not available 10:53:44 Medical History Condition Response High Cholesterol Y Diabetes Y Hypertension N Gynecological HistoryNo gynecological history recorded. Obstetrics History GPAL:G 0 P 0 0 0 0 Past Encounters Encounter ID Performer Location Encounter Start Date Encounter Closed Date Diagnosis/Indication Diagnosis SNOMED-CT Code Diagnosis ICD10 Code Diagnosis Note [id number] RAHEEM PARK MD UROLOGY [facility] CL[facility] [address] [place] [address] 12/14/2022 10:22:03 12/14/2022 15:50:33 Sensation as if urinary bladder still full 601293893 R39.14 Increased frequency of urination 035110366 R35.0 History of urinary tract infection 1246721628 107 Z87.440 Chronic constipation 236 671904 K59.09 Health Concerns Section Related Observation LastModified by Organization Detai ls LastModified Time None Recorded Concern Status LastModified by Organization Details LastModified Time None Recorded Advance Directives Directive None Recorded Payers Insurance Date Sequence Insurance Name Policy Number Policy Rangel Covered Member ID Rangel Member ID Guarantor Name 12/25/2022 1 [place] [id number] Geovanna Harrison [id number] Geovanna Harrison Notes Date Note Type [...] malignancy or stones. 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 RAHEEM PARK MD [facility] [place], [address], [facility] 12/14/2022 15:35:41 OBGyn Episode No OBEpisode recorded.
--- OUTSIDE RECORDS SUMMARY | 2024-11-05 11:39 | XMS_ITS | Clinical Summary ---
Author Organization [facility] Address [address] [place] [address] Phone Care Team Providers Care Lease Analyst Name Role Phone Jose Eduardo Mera MD Primary Care Provider [phone] Allergies Active Allergy Reactions Criticality Noted Date [...] Procedure Name Priority Date/Time Associated Diagnosis Comments CODING COMPLIANCE MANAGER CYTOLOGY REPORT Routine 10/07/2010 4 :41 AM EDT from Last 3 Months or Most Recently Relevant to Health Maintenance Results * CODING COMPLIANCE MANAGER CYTOLOGY REPORT (10/07/2010 4:41 AM EDT) Electronic Tech Cytology Report PATIENT NAME:GEOVANNA SONG Electronic Tech Cytology Report Accession Number Collected Date/Time Received Date/Time [id number] 10/07/10 04:41 EDT 10/10/10 04:41 EDT GY [...] confirmed before definitive therapy. Processed using the CosNetPrep Dairy Cattle Farmer automated cytology screening device (Advice Wallet). Store Host: LIZZ 10/11/2010 Completed by: JEREL Camarena (Electronically signed by) 10/11/2010 [facility] Laboratory [facility] 10/07/2010 4:41 AM EDT us Cliff Otto MD PATHOLOGY ORDERABLES Final R esult Performing Organization Address City/State/[facility] Co de Phone Number [facility] [address] [place] [address] from Last 3 Months or Most Recently Relevant to Health Maintenance Insurance NILO PPO ANTHEM PPO ANTHLAM PPO * Guarantor: Geovanna Song Account Type Relation to Patient Date of Phone Billing Address [place] Personal Family Self Advance Directives For more information, please contact: [phone] * Full Code (Latest Code Status on File) Date Activated Date Inactivated Comments 01/23/2016 2:57 AM 01/23/2016 6:50 PM Care Teams Lease Analyst Relationship Specialty Start [place] [address] [place], [place] [address] [address] [phone] PCP - General 01/31/11
[2024-11-06 08:49] LABS: FSH 26.4 mIU/mL (.)
== END 2024-11-05 23:59 | disposition home or self-care (01) ==
LOC: LAB 11:36
PROVIDERS: PCP Nurse Practitioner; Visit Provider Obstetrics & Gynecology
DX: N95.1 Menopausal and female climacteric states (principal); E28.39 Other primary ovarian failure
CPT/HCPCS: 36415; 83001

== ENCOUNTER 2024-12-24 08:00 | Outpatient (CLI) | payer BC, SELFPAY ==
--- OUTSIDE RECORDS SUMMARY | 2016-06-15 15:40 | XMS_ITS | Encounter Summary ---
Author Organization [place] [place] [address] Care Team Providers Care Roving Frame Tender Name Role Phone Jose Eduardo Mera MD Primary Care Provider [phone] Encounter Details Date Type Department Care Team (Latest Contact Info) Description 06/15/2016 2:40 PM [facility] Hospital Encounter [facility] Referral Lab [address] [place] [address] Nile Albert MD [address] [facility] [address] [place] [address] Radiculopathy of lumbar region Social History Tobacco Use Types Packs/Day Years Used Date Smoking Tobacco: Every Day Cigarettes 1 25.6 Started: 05/07/1999 Smokeless Tobacco: Never Alcohol Use [...] PM EDT documented as of this encounter Functional Status * Alcohol Screening Questionnaire (AUDIT) Question Answer Date of Assessment Author How often do you have a drin k containing alcohol? 0 01/18/2017 6:44 AM EDT Gerri Menon R N * Alcohol Screening Score Answer Date of Assessment Author 0 01/18/2017 6:44 AM EDT Natalia Menon RN * Drug Screening Score Answer Date of Assessment Author 0 01/18/2017 6:44 AM EDT Natalia Menon RN documented as of this encounter Plan of Treatment Not on file documented as of this encounter Results * VITAMIN D, 1,25-DIHYDROXY -REF LAB (06/15/2016 3:07 PM EST) Pathologist [facility] Vit D 1,25 43.3 19.9 - 79.3 pg/mL [employer] [facility] Comment: INTERPRETIVE INFORMATION: Vitamin D, 1,25-Dihydroxy This test is primarily indicated during patient evaluation for hypercalcemia and renal failure. A normal result does not rule out Vitamin D deficiency. The recommended test for diagnosing Vitamin D deficiency is Vitamin D 25-hydroxy. Performed by [facility], [address] [place] [address] [email or web address]+, Mitul Birch MD - Lab. Director Blood specimen (specimen) 06/15/2016 3:07 PM EST 06/15/2016 9:06 PM EST Nile Albert MD CHEMISTRY ORDERABLES Kaleigh l Result [facility] [address] [place] [address] * HLA-B27 -REF LAB (06/15/2016 3:07 PM EST) [facility] HLA B27 Negative Negative [employer] Comment: INTERPRETIVE INFORMATION: HLA-B27 HLA-B27 is a serologically defined allele of the human HLA-B locus. The presence of the HLA-B27 antigen is strongly associated with ankylosing spondylitis and related disorders. Test developed and characteristics determined by [facility]. See Compliance Statement B: [employer] Performed by [facility], [address] [place] [address] [email or web address]+, Mitul Birch MD - Lab. Director Blood specimen (specimen) 06/15/2016 3:07 PM EST 06/15/2016 9:16 PM EST Nile Albert MD IMMUNOLOGY ORDERABLES Fin al Result Performing Organization Address [facility] de Phone Number [employer] [facility] [address] [place] [address] * DSDNA AB REFLEX TO TITER -REF LAB (06/15/2016 3:07 PM EST) DNA Ab DS None Detected None Detected [employer] Comment: INTERPRETIVE INFORMATION: Double-Stranded DNA (dsDNA) Antibody, [...] recommendations for testing may be found at http://www.[employer]/Topics/AutoimmuneDz/ConnectiveTissueDz/i ndex.html. Performed by [facility], [address] [place] [id number] [email or web address] Mitul Birch MD - Lab. Director Blood specimen (specimen) 06/15/2016 3:07 PM EST 06/15/2016 9:06 PM EST Nile Albert MD IMMUNOLOGY ORDERABLES Fin al Result Performing Organization Address [facility] Co de Phone Number [facility] [address] [place] [address] * RHEUMATOID FACTOR QUANTITATIVE (06/15/2016 3:07 PM EST) Pathologist [facility] RF Quant <10 <=14 IU/mL [facility] Blood specimen (specimen) 06/15/2016 3:07 PM EST 06/15/2016 6:17 PM EST Nile Albert MD IMMUNOLOGY ORDERABLES Fin al Result Performing Organization Address [facility] [[email or web address]] [place] [address] * SEDIMENTATION RATE AUTOMATED (06/15/2016 3:07 PM EST) Sed Rate 10 0 - 20 mm/hr [facility] Blood specimen (specimen) 06/15/2016 3:07 PM EST 06/15/2016 6:16 PM EST Nile Albert MD HEMATOLOGY ORDERABLES Fin al Result Performing Organization Address [facility] [place] [address] * CBC WITH AUTO DIFF (06/15/2016 3:07 PM EST) WBC 10.2 4.0 - 11.0 x10(3)/mcL [facility] RBC 4.55 3.80 - 5.10 x10(6)/mcL [facility] Hgb 13.5 12.0 - 15.6 gm/dL [facility] Hct 40.4 35.7 - 45.9 % [facility] MCV 88.9 82.5 - 99.8 fL [facility] MCH 29.7 27.0 - 34.3 pg [facility] MCHC 33.4 32.1 - 35.3 gm/dL [facility] RDW 14.5 11.5 - 15.0 % [facility] Platelet 271 144 - 423 x10(3)/mcL [facility] MPV 9.1 6.8 - 10.8 fL [facility] Blood specimen (specimen) 06/15/2016 3:07 PM EST 06/15/2016 6:16 PM EST Nile Albert MD HEMATOLOGY ORDERABLES Fin al Result Performing Organization Address [facility] Co de Phone Number [facility] [address] [place] [address] * THYROID STIMULATING HORMONE (06/15/2016 3:07 PM EST) [facility] TSH 1.410 0.270 - 4.200 mcIU/mL [facility] Blood specimen (specimen) 06/15/2016 3:07 PM EST 06/15/2016 6:17 PM EST Nile Albert MD CHEMISTRY ORDERABLES Kaleigh l Result Performing Organization Address [facility] Co de Phone Number [facility] [address] [place] [address] * IRON LEVEL (06/15/2016 3:07 PM EST) [facility] Iron 57 30 - 160 mcg/dL [facility] Blood specimen (specimen) 06/15/2016 3:07 PM EST 06/15/2016 6:17 PM EST Nile Albert MD CHEMISTRY ORDERABLES Kaleigh l Result Performing Organization Address [facility] de Phone Number [facility] [address] [place] [address] * CYCLIC CITRULLINATED PEPTIDE ANTIBODY, IGG (06/15/2016 3:07 PM EST) [facility] CCP Ab, IgG <0.5 U/mL [facility] Comment: Negative: < 5.0 U/mL Positive: > or = 5.0 U/mL Blood specimen (specimen) 06/15/2016 3:07 PM EST 06/15/2016 6:17 PM EST Nile Albert MD IMMUNOLOGY ORDERABLES Fin al Result Performing Organization Address [facility] Co de Phone Number [facility] [address] [place] [address] * VITAMIN B12 LEVEL (06/15/2016 3:07 PM EST) Vitamin B12 525 211 - 946 pg/mL [facility] Blood specimen (specimen) 06/15/2016 3:07 PM EST 06/15/2016 6:17 PM EST us Nile Albert MD CHEMISTRY ORDERABLES Kaleigh l Result Performing Organization Address [facility] [[email or web address]] de Phone Number [facility] [address] [place] [address] * URIC ACID (06/15/2016 3:07 PM EST) Uric Acid 5.2 2.4 - 5.7 mg/dL [facility] Blood specimen (specimen) 06/15/2016 3:07 PM EST 06/15/2016 6:17 PM EST us Nile Albert MD CHEMISTRY ORDERABLES Kaleigh l Result Performing Organization Address [facility] [place] [address] documented in this encounter Visit Diagnoses Diagnosis Radiculopathy of lumbar region Thoracic or lumbosacral neuritis or radiculitis, unspecified documented in this encounter Care Teams Roving Frame Tender Relationship Specialty Start Date End Date Jose Eduardo Mera MD [address] [place] [address] [address] [place] [address] PCP - General 01/31/11 documented as of this encounter
[2024-12-24 16:38] LABS: Alanine Aminotransferase 21 U/L (12-78); Albumin Level 3.8 g/dl (3.5-5.0); Albumin/Globulin Ratio 1.5 (1.1-1.8); Alkaline Phosphatase 74 U/L (38-126); Anion Gap 10.1 mEq/L (5-15); Aspartate Amino Transferase 25 U/L (14-36); Bilirubin,Total 0.2 mg/dl (0.2-1.3); Blood Urea Nitrogen 12 mg/dl (7-17); Calcium 9.4 mg/dl (8.4-10.2); Carbon Dioxide 28 mmol/L (22.0-30.0); Chloride 104 mmol/L (98-107); Cholesterol 125 mg/dl (140-200); Creatinine,Serum 0.80 mg/dl (0.52-1.04); Estimated Glomerular Filt Rate 78 ml/min (>60); GFR (African American) 94 ML/MIN (>60); Globulin 2.6 g/dL (1.3-3.2); Glucose 97 mg/dl (74-100); HDL Cholesterol 37 mg/dl (40-60); Potassium 3.1 mmoL/L (3.5-5.1); Sodium 139 mmol/L (136-145); Total Protein,Serum 6.4 g/dl (6.3-8.2); Triglycerides 90 mg/dl (30-150)
[2024-12-24 16:57] LABS: 25-OH Vitamin D, Total 40.5 ng/mL (30-100)
[2024-12-24 17:29] LABS: Hepatitis C Ab Qual. W/ RFX NEGATIVE (Negative)
[2024-12-24 18:08] LABS: Hemoglobin A1C 5.4 % (4.0-6.0)
--- OUTSIDE RECORDS SUMMARY | 2024-12-25 09:47 | XMS_ITS | Clinical Summary ---
[facility] Address [address] [place] [address] Care Team Providers Care Diesel Dinkey Operator Name Role Phone Provider, No Known Primary Care Provider Unavail able Allergies No known active allergies Medications oxyCODONE-acetam inophen (PERCOCET) 5-325 MG per tablet Take 1 tablet by mouth Every 4 (Four) Hours As Needed. 10 tablet 11/20/2023 12:27 PM EDT 11/20/2023 Active Family History Medical History Relation Name Comments Breast cancer Maternal Grandmother Relation Name Status Comments Maternal Grandmother Social History Tobacco Use Types Packs/Day Years Used Date Smoking Tobacco: Never Assessed Comments No Sex and Gender Information Value Date Recorded Sex Assigned at Not on file Legal Sex Female 3:54 PM EDT Gender Identity Not on file Sexual Orientation Not on file Plan of Treatment Health Maintenance Due Date Last Done Comments Annual Gynecologic Pelvic and Breast Exam 1979 TDAP/TD VACCINES (1 - Tdap) 07/25/1998 ANNUAL PHYSICAL 11/06/2023 HEPATITIS C SCREENING 11/06/2023 COVID-19 Vaccine ( season) 2024 COLOGUARD 07/25/2024 COLON CANCER SCREENING 5 YEAR SIGMOIDOSCOPY 07/25/2024 COLONOSCOPY 07/25/2024 COLORECTAL CANCER SCREENING 07/25/2024 CT COLONOGRAPHY 07/25/2024 FECAL OCCULT BLOOD TEST 07/25/2024 FIT Testing (1 year) 07/25/2024 INFLUENZA VACCINE 02/04/2025 04/16/2024, 02/20/2018 MAMMOGRAM 06/26/2026 06/26/2024, 09/05, 09/11/2023, Additional history exists Pneumococcal Vaccine 0-49 Aged Out No longer eligible based on patient's age to complete this topic Procedures Procedure Name Priority Date/Time Associated Diagnosis Comments MAMMO DIAGNOSTIC DIGITAL TOMOSYNTHESIS RIGHT W CAD Routine 06/26/2024 11:05 AM EST Abnormal mammogram from Last 3 Months or Most Recently Relevant to Health Maintenance Results * Mammo Diagnostic Digital Tomosynthesis Right With CAD (06/26/2024 11:05 AM EST) Anatomical Region Laterality Modality Breast Right Mammography 06/26/2024 11:0 4 AM EST Impressions 06/26/2024 11:25 AM EST Presumed postsurgical changes, otherwise stable glandular pattern is considered benign. ACR BI-RADS CATEGORY: 2, BENIGN RECOMMENDATION: Patient may return to routine annual screening mammography. CAD was utilized. The standard false-negative rate of mammography is between 10% and 25%. Complex patterns or increased breast density will markedly elevate the false-negative rate of mammography. A letter, in lay terminology, with the results of this exam was given to the patient at the time of the visit. 06/26/2024 11:25 AM by Kasey Quigley MD on Narrative 06/26/2024 11:25 AM EST RIGHT DIGITAL DIAGNOSTIC MAMMOGRAM WITH TOMOSYNTHESIS CLINICAL HISTORY: Short-interval follow-up status post surgical excision of a papillary lesion lower outer posterior depth right breast. TECHNIQUE: 2D and tomosynthesis CC and MLO views were obtained. COMPARISON: Priors extending to 2020. MAMMOGRAM FINDINGS: There are scattered fibroglandular densities. Postsurgical changes are noted in the lower outer quadrant otherwise the glandular pattern is stable with no worrisome masses, areas of nonsurgical distortion or suspicious microcalcifications. us Kingston Huerta MD IMG MAMMOGRAPHY ORDERABLES Final Result from Last 3 Months or Most Recently Relevant to Health Maintenance [place] [address] [address] PPO Care Teams Diesel Dinkey Operator Relationship Specialty Start Date End Date Provider, No Known [place] [address] PCP - General 10/30/23
--- OUTSIDE RECORDS SUMMARY | 2024-12-25 09:47 | XMS_ITS | Clinical Summary ---
Author Organization [facility] Address [address] [place] [address] Phone Care Team Providers Care Brush Hand Name Role Phone Jose Eduardo Mera MD Primary Care Provider [phone] Allergies Active Allergy Reactions Criticality Noted Date [...] 1 25.6 Started: 05/07/1999 Smokeless Tobacco: Never Tobacco Cessation:Ready [...] 10/07/2010 Breast Cancer Screening 2019 COVID-19 Vaccine (1 - 2023-2 5 season) 2024 Cologuard 07/25/2024 Colon Cancer Screening 07/25/2024 Colonoscopy 07/25/2024 FIT 07/25/2024 Sigmoidoscopy 07/25/2024 Virtual Colonography 07/25/2024 Influenza Vaccine (#1) 2025 Meningococcal B Vaccine Aged Out No l onger eligible based on patient's age to complete this topic Pneumococcal Vaccine 0-49 Aged Out No longer eligible based on patient's age to complete this topic Procedures Procedure Name Priority Date/Time Associated Diagnosis Comments STRAIGHT PIN MAKING MACHINE OPERATOR CYTOLOGY REPORT Routine 10/07/2010 4 :41 AM EDT from Last 3 Months or Most Recently Relevant to Health Maintenance Results * STRAIGHT PIN MAKING MACHINE OPERATOR CYTOLOGY REPORT (10/07/2010 4:41 AM EDT) Express Clerk Cytology Report PATIENT NAME:GEOVANNA SONG Express Clerk Cytology Report Accession Number Collected Date/Time Received Date/Time [id number] 10/07/10 04:41 EDT 10/10/10 04:41 EDT GY [...] confirmed before definitive therapy. Processed using the [employer] Mask Former automated cytology screening device ([employer]). Track Laminating Machine Tender: LIZZ 10/11/2010 Completed by: JEREL Camarena (Electronically signed by) 10/11/2010 [facility] 10/07/2010 4:41 AM EDT us Cliff Otto MD PATHOLOGY ORDERABLES Final R esult Performing Organization Address City/State/[facility] Co de Phone Number [facility] [address] [place] [address] from Last 3 Months or Most Recently Relevant to Health Maintenance Insurance [employer] PPO ANTHEM PPO ANTHLAM PPO * Guarantor: Geovanna Song Account Type Relation to Patient Date of Phone Billing Address [place] Personal Family Self Advance Directives For more information, please contact: [phone] * Full Code (Latest Code Status on File) Date Activated Date Inactivated Comments 01/23/2016 2:57 AM 01/23/2016 6:50 PM Care Teams Brush Hand Relationship Specialty Start [place] [address] [place], [place] [address] [id number] PCP - General 01/31/11
--- OUTSIDE RECORDS SUMMARY | 2024-12-25 09:47 | XMS_ITS | Clinical Summary ---
Author Organization Healthcare Address [address] [place] [address] Care Team Providers Care Quality Control Checker Name Role Phone Sukh Mera MD Primary Care Provider [phone] Family History Medical History Relation Name Comments [...] of 2 - 13+ 2-dose series) 07/25/1992 [facility]- SDOH Screenings 07/25/1997 [facility]-Adult SDOH Screenings 07/25/1997 [facility]-DTaP,Tdap,and Td Vaccine s (1 - Tdap) 07/25/1998 [facility]-Hepatitis B Vaccines (1 of 3 - 19+ 3-dose series) 07/25/1998 [facility]-Pap Smear 07/25/2000 HPV Vaccines (1 - 3-dose SCD M series) 07/25/2006 [facility]-Cervical Cancer Screening 07/25/2009 [facility]-HPV/Cotest 07/25/2009 [id number] Vaccine (1 - 20 24-25 season) 2024 [...] age to complete this topic Care Teams Quality Control Checker Relationship Specialty Start Date End Date Sukh Mera MD [address] [place] [address] PCP - General 09/17/20
[2024-12-26 07:10] LABS: Hepatitis B Surface Antigen Negative (Negative)
== END 2024-12-24 23:59 | disposition home or self-care (01) ==
LOC: LAB.DROPOF 12-25 09:40
PROVIDERS: PCP Nurse Practitioner; Visit Provider Nurse Practitioner
DX: E78.5 Hyperlipidemia, unspecified (principal); Z11.59 Encounter for screening for other viral diseases; E11.9 Type 2 diabetes mellitus without complications; E55.9 Vitamin D deficiency, unspecified; I10 Essential (primary) hypertension; E66.01 Morbid (severe) obesity due to excess calories; Z68.41 Body mass index [BMI] 40.0-44.9, adult
CPT/HCPCS: 80053; 80061; 82306; 83036; 86803; 87340; 87389

== ENCOUNTER 2024-12-29 12:56 | Day surgery (SDC) | payer BC, SELFPAY ==
[2024-12-26 09:22] VITALS: BMI 36.4
[2024-12-29 13:36] VITALS: BP 121/88; PULSE 66; RESP 16; TEMP 36.5; O2SAT 98
[2024-12-29] MEDS: LACTATED RINGERS 1000ML 1,000 ML 50 ML IV (13:36)
[2024-12-29 13:41] LABS: Urine Pregnancy, HCG Qual. Negative (Negative)
--- NOTE | 2024-12-29 13:47 | EXP.ANES.CKL ---
[facility] Disclaimer: The information contained in this section may have been updated after the patient was seen, as this information can be updated by other users. 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 [place] of foot Family history of early CAD Dizziness Urinary retention Abnormal finding present on diagnostic imaging of uterus Ovarian cyst Type 2 diabetes mellitus without complications Hyperlipidemia Essential hypertension Impaired fasting blood sugar Hypertension Gastroesophageal reflux disease Obesity Tobacco dependence syndrome Somnolence, daytime PND (paroxysmal nocturnal dyspnea) Heavy menstrual bleeding Surgical History S/P breast biopsy, left History of hysteroscopy History of endometrial ablation History of colonoscopy Surgical history of tubal ligation History of History of appendectomy Family History Other Cancer Coronary artery disease Diabetes Social History Smoking Status: Current every day smoker tobacco type: cigarettes packs per day: 1 pack-years: 25 years smoked: 25 second hand exposure: Yes alcohol intake: never substance use type: denies use current occupational status: employed Travel in the last 8 weeks?: None household members: spouse housing: house current occupation: [employer] current occupational exposures/hazards: No caffeine: Yes special idalia needs: No agree to transfusion: No do you feel safe at home: Yes victim of physical abuse: No victim of emotional abuse: No victim of sexual abuse: No would you like helpful sources: No Have you lived/traveled outside US in past 30 days?: No Contact w/someone who lives/traveled outside US past 30 days?: No Exposure to someone with infectious disease in past 14 days?: No Do you have a fever (greater than 100.4 F or 38 C)?: No Have you tested positive for COVID-19?: No Exposed to someone with COVID-19 in past 14 days?: No Do you have a sore throat?: No Do you have a cough?: No Do you have any weakness?: No Do you have any diarrhea?: No Are you experiencing any unusual bleeding?: No Do you have any muscle aches/pain?: No Do you have any abdominal pain?: No Are you experiencing loss of taste or smell?: No [facility] Anesthesia Checklist Patient Identification Patient Identification: Arm Band and Verbal (Name & ) Structural Data Admitted From: Home Planned Operative Procedure/s: colonscopy Consent for Planned Operative Procedure(s) Verified: Yes Verified Documents: Surgical Consent and History and Physical NPO Status Verified Time NPO: 00:00 Additional verifications Anesthesia Reactions: No Hx Blood Transfusions: No Blood Transfusion Reaction: No Airway Assessment Mallampati Score:: Class II C-Spine Mobility Assessed: Yes Dentition: Good Dentition Neurological Assessment Level of Consciousness: Awake, Alert and Appropriate Hx Seizures: No Numbness or tingling in extremities: No Anesthesia Plan Anesthesia Risk discussed: Yes Anesthesia Plan: Verified ASA Class: II Anesthesia Type: MAC
[2024-12-29 14:00] LABS: POC Glucose,Bedside 88 (70-110)
--- NOTE | 2024-12-29 14:50 | P.HP_ITS ---
History of Present Illness *Admission Date: 12/29/24 *Reason for visit:: History of adenomatous colon polyp *History of present illness: Mrs. Harrison is a 44-year-old female who is here for screening/surveillance colonoscopy secondary to a personal history of an adenomatous colon polyp. She had a colonoscopy with Verito Sage MD in March 2022 and had a single polyp (small serrated adenoma) removed. The examination is deemed medically necessary for screening/surveillance colonoscopy. The patient has been seen, interviewed and examined prior to the procedure by both myself and the anesthesia provider. [facility] Disclaimer: The information contained in this section may have been updated after the patient was seen, as this information can be updated by other users. 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 [place] of foot Family history of early CAD Dizziness Urinary retention Abnormal finding present on diagnostic imaging of uterus Ovarian cyst Type 2 diabetes mellitus without complications Hyperlipidemia Essential hypertension Impaired fasting blood sugar Hypertension Gastroesophageal reflux disease Obesity Tobacco dependence syndrome Somnolence, daytime PND (paroxysmal nocturnal dyspnea) Heavy menstrual bleeding Surgical History S/P breast biopsy, left History of hysteroscopy History of endometrial ablation History of colonoscopy Surgical history of tubal ligation History of History of appendectomy Family History Other Cancer Coronary artery disease Diabetes Social History Smoking Status: Current every day smoker tobacco type: cigarettes packs per day: 1 pack-years: 25 years smoked: 25 second hand exposure: Yes alcohol intake: never substance use type: denies use current occupational status: employed Travel in the last 8 weeks?: None household members: spouse housing: house current occupation: [employer] current occupational exposures/hazards: No caffeine: Yes special idalia needs: No agree to transfusion: No do you feel safe at home: Yes victim of physical abuse: No victim of emotional abuse: No victim of sexual abuse: No would you like helpful sources: No Have you lived/traveled outside US in past 30 days?: No Contact w/someone who lives/traveled outside US past 30 days?: No Exposure to someone with infectious disease in past 14 days?: No Do you have a fever (greater than 100.4 F or 38 C)?: No Have you tested positive for COVID-19?: No Exposed to someone with COVID-19 in past 14 days?: No Do you have a sore throat?: No Do you have a cough?: No Do you have any weakness?: No Do you have any diarrhea?: No Are you experiencing any unusual bleeding?: No Do you have any muscle aches/pain?: No Do you have any abdominal pain?: No Are you experiencing loss of taste or smell?: No Other Medical History Have you received the Flu Vaccine for this season: Yes Have you received the Pneumonia Vaccine: No Review of Systems Review of Systems Review of systems (narrative): Negative *Cardiovascular Comments: Negative *Gastrointestinal Comments: Negative *Genitourinary Comments: Negative *Musculoskeletal Comments: Negative *Neurologic Comments: Negative Meds Home Medications and Allergies Home Medications ?Medication ?Instructions ?Recorded ?Confirmed ?Type blood sugar diagnostic (Blood 10/10/22 12/29/24 Histo ry Glucose Test strips) blood-glucose meter (Blood Glucose 10/10/22 12/29/24 History Monitoring kit) cyclobenzaprine 10 mg tablet 10 mg PO TID PRN muscle s pasm #30 06/13/23 12/29/24 Rx tabs hydrochlorothiazide 12.5 mg tablet 12.5 mg PO DAILY #3 0 tabs 10/03/24 12/29/24 Rx cholecalciferol (vitamin D3) 125 125 mcg PO DAILY #90 tabs 10/08/24 12/29/24 Rx mcg (5,000 unit) tablet atorvastatin 20 mg tablet 20 mg PO DAILY #90 tabs 10/0512/29/24 Rx omeprazole 40 mg capsule,delayed See Rx Instructions . Route 10/22/24 12/29/24 Rx release .COMPLEX #90 caps progesterone micronized 200 mg 200 mg PO HS 30 days #3 0 caps 10/24/24 12/29/24 Rx capsule tirzepatide 12.5 mg/0.5 mL 12.5 mg (0.5 mL) SQ WEEKLY #2 mL 11/25/24 12/29/24 Rx subcutaneous pen injector (Mounjaro) sodium sul 1.479 gram-potas ch See Rx Instructions PO PER PKG DIR 12/15/24 12/29/24 Rx 0.188 gram-magnes sul 0.225 gram colonscopy #24 tabs tablet (Sutab) cetirizine 10 mg tablet 10 mg PO DAILY #90 tabs 12/0612/29/24 Rx lancets #200 ea 12/24/24 12/29/24 Rx methylprednisolone 4 mg tablets in See Rx Instructions PO PER PKG DIR 12/24/24 12/29/24 Rx a dose pack #21 tabs paroxetine HCl 10 mg tablet 10 mg PO DAILY #90 tabs 12/29/24 Rx valsartan 40 mg tablet 40 mg PO DAILY #90 tabs 12/0612/29/24 Rx New Prescriptions to Start Prescriptions: Allergies Allergy/AdvReac Type Severity Reaction Status Date / Time Penicillins Allergy Mild Hives Verified 12/29/24 13:34 Exam Data for Last 24 hours Vital signs and Labs for Last 24 Hours: Temp Pulse Resp BP Pulse Ox O2 Del Method 97.7 F 66 16 121/88 98 Room Air 12/29/24 13:36 12/29/24 13:36 12/29/24 13:36 12/29/24 13:36 12/29/24 13:36 12/29/24 13:36 Laboratory Results - last 24 hr 12/29/24 13:30: Urine HCG, Qual Negative 12/29/24 13:49: POC Glucose 88 I & O for Last 24 hours: Intake & Output 12/26/24 12/27/24 12/28/24 12/29/24 23:59 23:59 23:59 23:59 Weight 193 lb *Routine HEENT Exam Head: Present normocephalic Eye: Present EOMI and PERRL ENT: Present mucous membranes moist *Routine Neck Exam Neck: Present supple *Routine Respiratory Exam Respiratory: Present CTA bilaterally *Routine Cardiovascular Exam Cardiovascular: Present RRR *Routine Abdominal Exam Abdominal: Present soft and normoactive bowel sounds; Absent tenderness *Routine Rectal Exam Rectal:: deferred *Routine Genitalia Exam Genitalia:: deferred *Routine Extremities Exam Extremities: Absent cyanosis, clubbing or edema *Routine Skin Exam Skin: Present warm; Absent rash *Routine Neurological Exam Neurological: Present alert and oriented X3 Assessment and Plan *Assessment and plan (1) Personal history of adenomatous and serrated colon polyps: Status: Acute Category: Medical Code(s): Z86.0101 - Personal history of adenomatous and serrated colon polyps (2) Screening for colon cancer: Status: Acute Category: Medical Code(s): Z12.11 - Encounter for screening for malignant neoplasm of colon Plan A/P: 1. Personal history of adenomatous colon polyp (small 5 mm serrated adenoma removed March 2022/Verito Sage MD) is the preprocedural diagnosis. The provider recommended 3-year surveillance interval. The patient will be anesthetized/sedated using MAC sedation. The patient has been seen and examined. Cardiac and lung assessment prior to the examination is stable. Proceed with planned screening/surveillance colonoscopy.
--- NOTE | 2024-12-29 14:53 | HMH.PROCNOTE ---
[facility] Procedure Note Date: 12/29/24 Time: 15:15 Procedure Note:: Colonoscopy Procedure Report: Colonoscopy with cold snare polypectomy Endoscopist: Cristiano Draper II, MD Referring physician: QUOC Burris Date of Procedure: December 29, 2024 Equipment: Olympus [id number] adult colonoscope Sedation: MAC sedation Indication: Mrs. Harrison is a 44-year-old female who is here for screening/surveillance colonoscopy secondary to a family history of colon cancer and personal history of an adenomatous colon polyp. She had a colonoscopy with Verito Sage MD in March 2022 and had a single polyp (small serrated adenoma) removed. The patient does state that her mother had advanced colon cancer diagnosed at the age of 43. She reports some chronic constipation and sometimes may go up to a week without a bowel movement. She is not on any bowel habit training. The patient reports no rectal bleeding, abdominal pain or weight loss. Procedure: Prior to the procedure, a history and physical exam was performed, and patient's medications and allergies were reviewed. The risks, benefits and alternatives of the sedation and procedure were discussed with the patient. All questions were answered and informed consent was obtained. The patient was brought to the procedure room. Patient identification and proposed procedure were verified by the physician and the nurse. The patient was placed in a left lateral decubitus position and the scope was passed under direct vision. Throughout the procedure, the patient's blood pressure, pulse, and oxygen saturations were monitored continuously. The colonoscopy was accomplished without difficulty. The patient tolerated the procedure well. Findings: On digital rectal examination there was normal rectal tone. There were no external hemorrhoids. The colonoscope was introduced through the anal canal to the rectum and advanced to the cecum. The ileocecal valve and appendiceal orifice were identified. The scope was advanced a short distance into the ileum which appeared grossly normal. The scope was then withdrawn into the colon. The cecum, ascending, transverse and descending colon were grossly normal. There were 4 diminutive 3 mm polyps in the sigmoid colon (probable hyperplastic polyps) which were all removed via cold snare polypectomy. There was some very mild shallow sigmoid diverticulosis. The rectum itself was normal. Upon retroflexion within the rectum there were grade 1-2 internal hemorrhoids. The preparation was excellent throughout with [place] Preparation Score of 9. The cecal time was 12 minutes. Impression: 1. Diminutive sigmoid colonic polyps x 4 (probable hyperplastic polyps) 2. Mild sigmoid diverticulosis 3. Grade 1-2 internal hemorrhoids Plan: I will follow-up the polyp histology and recommend repeat surveillance colonoscopy again in 5 years. I will recommend bowel habit training with Linzess or Trulance.
[2024-12-29 15:18] VITALS: BP 100/70; PULSE 85; RESP 16; TEMP 36.1; O2SAT 97
[2024-12-29 15:28] VITALS: BP 105/70; PULSE 71; RESP 16; O2SAT 100
[2024-12-29 15:38] VITALS: BP 117/77; PULSE 83; RESP 18; O2SAT 100
[2024-12-29 15:48] VITALS: BP 132/75; PULSE 69; RESP 18; TEMP 36.1; O2SAT 99
== END 2024-12-29 15:48 | disposition home or self-care (01) ==
PROVIDERS: PCP Nurse Practitioner; Visit Provider Internal Medicine Gastroenterology
PROC: 0DJD8ZZ Inspection of Lower Intestinal Tract, Via Natural or Artificial Opening Endoscopic (ICD-10-PCS; CPT 45378; principal; 2024-12-29 14:30)
DX: Z12.11 Encounter for screening for malignant neoplasm of colon (principal); D12.5 Benign neoplasm of sigmoid colon; K63.5 Polyp of colon; K57.30 Diverticulosis of large intestine without perforation or abscess without bleeding; K64.0 First degree hemorrhoids; K64.1 Second degree hemorrhoids; Z80.0 Family history of malignant neoplasm of digestive organs; Z86.0101 Personal history of adenomatous and serrated colon polyps; I10 Essential (primary) hypertension; K21.9 Gastro-esophageal reflux disease without esophagitis; E78.5 Hyperlipidemia, unspecified; E11.9 Type 2 diabetes mellitus without complications; F17.210 Nicotine dependence, cigarettes, uncomplicated; Z88.1 Allergy status to other antibiotic agents; Z79.899 Other long term (current) drug therapy
CPT/HCPCS: 45385; 81025; 82962; J2003; J2704; J7120

== ENCOUNTER 2025-04-21 09:36 | Outpatient (CLI) | payer BC, SELFPAY ==
--- OUTSIDE RECORDS SUMMARY | 2016-06-15 14:40 | XMS_ITS | Encounter Summary ---
Author Organization [place] [address] Care Team Providers Care Rate Inserter Name Role Phone Jose Eduardo Mera MD Primary Care Provider [phone] Encounter Details Date Type Department Care Team (Latest Contact Info) Description 06/15/2016 2:40 PM [facility] Hospital Encounter [facility] Referral Lab [address] [place] [address] Nile Albert MD [address] [facility] [address] [place] [address] Radiculopathy of lumbar region Social History Tobacco Use Types Packs/Day Years Used Date Smoking Tobacco: Every Day Cigarettes 1 26 Started: 05/07/1999 Smokeless Tobacco: Never Alcohol Use Standard Drinks/Week Comments No 0 (1 standard drink = 0.6 oz pur e alcohol) Sexually Active Control Partners Comments Yes Surgical Male [id number] Comments No Sex and Gender Information Value Date Recorded Sex Assigned at Not on file Legal Sex Female 12:35 AM EDT Gender Identity Not on file Sexual Orientation Not on file COVID-19 Exposure Response Date Recorded In the last month, have you been in contact with someone who was confirmed or suspected to have Coronavirus / COVID-19? No / Unsure 01/13/2020 12:17 PM EDT documented as of this encounter Plan of Treatment Not on file documented as of this encounter Results * VITAMIN D, 1,25-DIHYDROXY -REF LAB (06/15/2016 3:07 PM EST) Pathologist [facility] Vit D 1,25 43.3 19.9 - 79.3 pg/mL [facility] Comment: INTERPRETIVE INFORMATION: Vitamin D, 1,25-Dihydroxy This test is primarily indicated during patient evaluation for hypercalcemia and renal failure. A normal result does not rule out Vitamin D deficiency. The recommended test for diagnosing Vitamin D deficiency is Vitamin D 25-hydroxy. Performed by [facility], [address] [place] [id number] [email or web address], Mitul Birch MD - Lab. Director Blood specimen (specimen) 06/15/2016 3:07 PM EST 06/15/2016 9:06 PM EST Nile Albert MD CHEMISTRY ORDERABLES Kaleigh l Result Performing Organization Address [facility] de Phone Number [facility] [address] [address] * HLA-B27 -REF LAB (06/15/2016 3:07 PM EST) [facility] HLA B27 Negative Negative [employer] Comment: INTERPRETIVE INFORMATION: HLA-B27 HLA-B27 is a serologically defined allele of the human HLA-B locus. The presence of the HLA-B27 antigen is strongly associated with ankylosing spondylitis and related disorders. Test developed and characteristics determined by [facility]. See Compliance Statement B: [employer]/ Performed by [facility], [address] [place] [id number] [email or web address], Mitul Birch MD - Lab. Director Blood specimen (specimen) 06/15/2016 3:07 PM EST 06/15/2016 9:16 PM EST Nile Albert MD IMMUNOLOGY ORDERABLES Fin al Result Performing Organization Address [facility] Co de Phone Number [facility] [address] [place] [address] * DSDNA AB REFLEX TO TITER -REF LAB (06/15/2016 3:07 PM EST) Pathologist [facility] DNA Ab DS None Detected None Detected [employer] Comment: INTERPRETIVE INFORMATION: Double-Stranded DNA (dsDNA) Antibody, IgG by CHLOE Positivity for anti-double stranded DNA (anti-dsDNA) IgG antibody is a diagnostic criterion of systemic lupus erythematosus (SLE). Specimens are initially screened by enzyme-linked immunosorbent assay (CHLOE). All CHLOE results reported as detected (positive) are confirmed by a highly specific IFA titer (Crithidia luciliae indirect fluorescent test [VESNA]). Some patients with early or inactive SLE may be positive for anti-dsDNA IgG by CHLOE but negative by VESNA. If the patient is negative by VESNA but positive by CHLOE and clinical suspicion remains, consider antinuclear antibody (HENRY) testing by IFA. Additional information and recommendations for testing may be found at http://www.[employer]/Topics/AutoimmuneDz/ConnectiveTissueDz/i ndex.html. Performed by [facility], [address] [place] [id number] www.[email or web address], Mitul Birch MD - Lab. Director Blood specimen (specimen) 06/15/2016 3:07 PM EST 06/15/2016 9:06 PM EST Nile Albert MD IMMUNOLOGY ORDERABLES Fin al Result Performing Organization Address [facility] Co de Phone Number [facility] [address] [place] [address] * RHEUMATOID FACTOR QUANTITATIVE (06/15/2016 3:07 PM EST) Pathologist [facility] RF Quant <10 <=14 IU/mL [facility] Blood specimen (specimen) 06/15/2016 3:07 PM EST 06/15/2016 6:17 PM EST Nile Albert MD IMMUNOLOGY ORDERABLES Fin al Result Performing Organization Address [facility]/ZIP Co de Phone Number [facility] [address] [place] [address] * SEDIMENTATION RATE AUTOMATED (06/15/2016 3:07 PM EST) Sed Rate 10 0 - 20 mm/hr [facility] Blood specimen (specimen) 06/15/2016 3:07 PM EST 06/15/2016 6:16 PM EST Nile Albert MD HEMATOLOGY ORDERABLES Fin al Result Performing Organization Address City/[facility] [place] [address] * CBC WITH AUTO DIFF (06/15/2016 3:07 PM EST) Pathologist [facility] WBC 10.2 4.0 - 11.0 x10(3)/mcL [facility] RBC 4.55 3.80 - 5.10 x10(6)/mcL [facility] Hgb 13.5 12.0 - 15.6 gm/dL [facility] Hct 40.4 35.7 - 45.9 % [facility] MCV 88.9 82.5 - 99.8 fL [facility] MCH 29.7 27.0 - 34.3 pg [facility] MCHC 33.4 32.1 - 35.3 gm/dL [facility] RDW 14.5 11.5 - 15.0 % [facility] Platelet 271 144 - 423 x10(3)/mcL [facility] MPV 9.1 6.8 - 10.8 fL [facility] Blood specimen (specimen) 06/15/2016 3:07 PM EST 06/15/2016 6:16 PM EST us Nile Albert MD HEMATOLOGY ORDERABLES Fin al Result Performing Organization Address City/[facility]/[place] [address] * THYROID STIMULATING HORMONE (06/15/2016 3:07 PM EST) TSH 1.410 0.270 - 4.200 mcIU/mL [facility] Blood specimen (specimen) 06/15/2016 3:07 PM EST 06/15/2016 6:17 PM EST us Nile Albert MD CHEMISTRY ORDERABLES Kaleigh l Result Performing Organization Address [facility] Co de Phone Number [facility] [address] [place] [address] * IRON LEVEL (06/15/2016 3:07 PM EST) Iron 57 30 - 160 mcg/dL [facility] Blood specimen (specimen) 06/15/2016 3:07 PM EST 06/15/2016 6:17 PM EST us Nile Albert MD CHEMISTRY ORDERABLES Kaleigh l Result Performing Organization Address [facility] Phone Number [facility] [address] [place] [address] * CYCLIC CITRULLINATED PEPTIDE ANTIBODY, IGG (06/15/2016 3:07 PM EST) CCP Ab, IgG <0.5 U/mL [facility] Comment: Negative: < 5.0 U/mL Positive: > or = 5.0 U/mL Blood specimen (specimen) 06/15/2016 3:07 PM EST 06/15/2016 6:17 PM EST us Nile Albert MD IMMUNOLOGY ORDERABLES Fin al Result Performing Organization Address [facility] de Phone Number [facility] [address] [place] [address] * VITAMIN B12 LEVEL (06/15/2016 3:07 PM EST) Vitamin B12 525 211 - 946 pg/mL [facility] Blood specimen (specimen) 06/15/2016 3:07 PM EST 06/15/2016 6:17 PM EST us Nile Albert MD CHEMISTRY ORDERABLES Kaleigh l Result Performing Organization Address [facility] Co de Phone Number [facility] [address] [place] [address] * URIC ACID (06/15/2016 3:07 PM EST) Uric Acid 5.2 2.4 - 5.7 mg/dL [facility] Blood specimen (specimen) 06/15/2016 3:07 PM EST 06/15/2016 6:17 PM EST us Nile Albert MD CHEMISTRY ORDERABLES Kaleigh l Result [facility] [address] [place] [address] documented in this encounter Visit Diagnoses Diagnosis Radiculopathy of lumbar region Thoracic or lumbosacral neuritis or radiculitis, unspecified documented in this encounter Care Teams Rate Inserter Relationship Specialty Start Date End Date Jose Eduardo Mera MD [address] [place] [address] [address] [place] [id number] PCP - General 01/31/11 documented as of this encounter
[2025-04-21 14:47] LABS: Microscopic, Urine URINE MICROSCOPIC (MICROSCOPIC)
[2025-04-21 15:08] LABS: Bilirubin,Urine Negative (Negative); Color,Urine YELLOW (Yellow); Glucose,Urine (UA) Negative (Negative); Ketones,Urine Negative (Negative); Leukocyte Esterase,Urine Negative (Negative); PH,Urine 7.0 (5.0-8.5); Protein,Urine Negative (Negative); Specific Gravity, Urine 1.015 (1.005-1.030); Urobilinogen,Urine 0.2 EU/dl (0.2)
[2025-04-21 15:33] LABS: Alanine Aminotransferase 18 U/L (12-78); Albumin Level 4.2 g/dl (3.5-5.0); Albumin/Globulin Ratio 1.4 (1.1-1.8); Alkaline Phosphatase 81 U/L (38-126); Anion Gap 9.8 mEq/L (5-15); Aspartate Amino Transferase 20 U/L (14-36); Bilirubin,Total 0.5 mg/dl (0.2-1.3); Blood Urea Nitrogen 11 mg/dl (7-17); Carbon Dioxide 28 mmol/L (22.0-30.0); Chloride 105 mmol/L (98-107); Cholesterol 142 mg/dl (140-200); Creatinine,Serum 0.80 mg/dl (0.52-1.04); Estimated Glomerular Filt Rate 78 ml/min (>60); GFR (African American) 94 ML/MIN (>60); Globulin 3.0 g/dL (1.3-3.2); HDL Cholesterol 46 mg/dl (40-60); Potassium 3.8 mmoL/L (3.5-5.1); Sodium 139 mmol/L (136-145); Total Protein,Serum 7.2 g/dl (6.3-8.2); Triglycerides 100 mg/dl (30-150); Uric Acid 5.3 mg/dl (2.5-6.2)
[2025-04-21 15:44] LABS: C-Reactive Protein 4.1 mg/L (0-4)
[2025-04-21 16:24] LABS: Calcium 9.9 mg/dl (8.4-10.2); Glucose 104 mg/dl (74-100)
[2025-04-21 17:45] LABS: Hemoglobin A1C 5.2 % (4.0-6.0)
[2025-04-21 20:25] LABS: Bacteria,Urine 3+ /lpf
[2025-04-22 11:13] LABS: RA Latex Turbid. <10.0 IU/mL (<14.0)
[2025-04-22 15:11] LABS: Antinuclear Antibodies, IFA Positive (.)
--- OUTSIDE RECORDS SUMMARY | 2025-04-22 19:06 | XMS_ITS | Clinical Summary ---
[facility] Address [address] [place] [address] Care Team Providers Care Long Term Care Pharmacist Name Role Phone Provider, No Known Primary [...] ANNUAL PHYSICAL 11/06/2023 HEPATITIS C SCREENING 11/06/2023 COLOGUARD 07/25/2024 COLON CANCER SCREENING 5 YEAR SIGMOIDOSCOPY 07/25/2024 COLONOSCOPY 07/25/2024 COLORECTAL CANCER SCREENING 07/25/2024 CT COLONOGRAPHY 07/25/2024 FECAL OCCULT BLOOD TEST 07/25/2024 FIT Testing (1 year) 07/25/2024 INFLUENZA VACCINE 12/05/2024 04/16/2024, 02/20/2018 MAMMOGRAM 06/26/2026 06/26/2024, 09/05, 09/11/2023, [...] areas of nonsurgical distortion or suspicious microcalcifications. Kingston Huerta MD IMG MAMMOGRAPHY ORDERABLES Final Result from Last 3 Months or Most Recently Relevant to Health Maintenance Insurance [facility] PPO Care Teams Long Term Care Pharmacist Relationship Specialty Start Date End Date Provider, [place] [address] PCP - General 10/30/23
--- OUTSIDE RECORDS SUMMARY | 2025-04-22 19:06 | XMS_ITS | Clinical Summary ---
Author Organization [facility]'s [facility] Address [address] [place] [address] Phone Care Team Providers Care Aboriginal Liaison Officer Name Role Phone Jose Eduardo Mera MD Primary Care Provider Allergies Active Allergy Reactions Criticality Noted Date [...] Date Smoking Tobacco: Every Day Cigarettes 1 Started: 05/07/1999 Smokeless Tobacco: Never Tobacco Cessation:Ready to Q uit: No Alcohol Use Standard Drinks/Week Comments No 0 (1 standard drink = 0.6 oz pur e alcohol) Sexually Active Control Partners Comments Yes Surgical Male BTL-2006 Comments No Sex and Gender Information Value Date Recorded Sex Assigned at Not on file Legal Sex Female 12:35 AM EDT Gender Identity Not on file Sexual Orientation Not on file Last Filed [...] Smear 10/07/2013 10/07/2010 Breast Cancer Screening 2019 Cologuard 07/25/2024 Colon Cancer Screening 07/25/2024 Colonoscopy 07/25/2024 FIT 07/25/2024 Sigmoidoscopy 07/25/2024 Virtual Colonography 07/25/2024 COVID-19 Vaccine (1 - 2024-2 6 season) 2025 Influenza Vaccine (#1) 2025 Meningococcal B Vaccine Aged Out No l onger eligible based on patient's age to complete this topic Pneumococcal Vaccine 0-49 Aged Out No longer eligible based on patient's age to complete this topic Procedures Procedure Name Priority Date/Time Associated Diagnosis Comments PERSONNEL INTERVIEWER CYTOLOGY REPORT Routine 10/07/2010 4 :41 AM EDT from Last 3 Months or Most Recently Relevant to Health Maintenance Results * PERSONNEL INTERVIEWER CYTOLOGY REPORT (10/07/2010 4:41 AM EDT) Real Property Appraiser Cytology Report PATIENT NAME:GEOVANNA SONG Real Property Appraiser Cytology Report Accession Number Collected Date/Time Received Date/Time [id number] 10/07/10 04:41 EDT 10/10/10 04:41 EDT GY [...] confirmed before definitive therapy. Processed using the InforamaPrep Imaging Clerk automated cytology screening device (UpNext). Manager Data Warehouse: LIZZ 10/11/2010 Completed by: JEREL Camarena (Electronically signed by) 10/11/2010 [facility] Laboratory [facility] 10/07/2010 4:41 AM EDT us Cliff Otto MD PATHOLOGY ORDERABLES Final R esult Performing Organization Address City/State/[facility] Co de Phone Number [facility] [address] [place] [address] from Last 3 Months or Most Recently Relevant to Health Maintenance Insurance NILO PPO ANTHLAM PPO ANTHLAM PPO * Guarantor: Geovanna Song Account Type Relation to Patient Date of Phone Billing Address [place] Personal Family Self Advance Directives For more information, please contact: [phone] * Full Code (Latest Code Status on File) Date Activated Date Inactivated Comments 01/23/2016 2:57 AM 01/23/2016 6:50 PM Care Teams Aboriginal Liaison Officer Relationship Specialty Start Date End Date Jose Eduardo Mera MD [address] [facility] [address] [place] [id number] [facility] - General 01/31/11
--- OUTSIDE RECORDS SUMMARY | 2025-04-22 19:06 | XMS_ITS | Clinical Summary ---
Author Organization Healthcare Address [address] [facility] [place] [address] Care Team Providers Care Compensation And Benefits Analyst Name Role Phone Sukh Mera MD Primary Care Provider [phone] Family History Medical History Relation Name Comments [...] 07/25/2000 [facility]-Cervical Cancer Screening 07/25/2009 [facility]-HPV/Cotest 07/25/2009 CT Colonography 07/25/2024 Colonoscopy 07/25/2024 FIT-DNA 07/25/2024 FIT 07/25/2024 FOBT 07/25/2024 Sigmoidoscopy 07/25/2024 [facility]-Colorectal Cancer Screening 07/25/2024 [id number]-[id number] Vaccine ( 25-26 season) 2025 [facility]-Influenza Vaccine (#1) 2025 02/20/2018 [facility]-Zoster Vaccines (1 of 2) 07/25/2029 HPV Vaccines (No Doses Required) Completed [facility]-HIB Vaccines Aged Out No longer e [...] age to complete this topic Care Teams Compensation And Benefits Analyst Relationship Specialty Start Date End Date Sukh Mera MD [address] [place] [id number] PCP - General 09/17/20
--- OUTSIDE RECORDS SUMMARY | 2025-04-22 19:06 | XMS_ITS | Data Portability ---
Author Organization [facility] [place] [facility] Address [address] [facility] [address] [place] [address] Assessment Encounter Date Assessment Date Assessment LastModified [...] 2022 023 [facility] Radiology [facility], [address] [place], [address], 3 12:39:10 Medication Orders None recorded. Patient TargetsNo targets recorded. Patient InstructionsNo instructions recorded. Reason for Referral None Reported. Results Created Date Observation Date Name Description Value Unit Range Abnormal Flag Note LastModifiedBy Organization Detail LastModifiedTime 12/15/19 23 12/14/2022 urina lysis , dipst ick Unknown Analyte Yellow Not Available [facility] [address] [place], [address], 12/14/2022 11:17:08 12/15/19 23 12/14/2022 urina lysis , dipst ick Unknown Analyte Clear Not Available [facility] [address] [place] [address], [address], 12/14/2022 11:17:08 12/15/19 23 12/14/2022 urina lysis , dipst ick Unknown Analyte 1.005 Not Available [facility] [address] [place] [address], [address], 12/14/2022 11:17:08 12/15/19 23 12/14/2022 urina lysis , dipst ick Unknown Analyte 6.5 Not Available [facility] [address] [place] [address], [address], 12/14/2022 11:17:08 12/15/19 23 12/14/2022 urina lysis , dipst ick Unknown Analyte Negati ve Not Available [facility] [address] [place] [address], [address], 12/14/2022 11:17:08 12/15/19 23 12/14/2022 urina lysis , dipst ick Unknown Analyte Negati ve Not Available [facility] [address] [place] [address], [address], 12/14/2022 11:17:08 12/15/19 23 12/14/2022 urina lysis , dipst ick Unknown Analyte Negati ve Not Available [facility] [address] [place] [address], [address], 12/14/2022 11:17:08 12/15/19 23 12/14/2022 urina lysis , dipst ick Unknown Analyte Normal Not Available [facility] [address] [place], [address], 12/14/2022 11:17:08 12/15/19 23 12/14/2022 urina lysis , dipst ick Unknown Analyte Negati ve Not Available [facility] [address] [place] [address], [phone], 12/14/2022 11:17:08 12/15/19 23 12/14/2022 urina lysis , dipst ick Unknown Analyte Normal Not Available [facility] [address] [place] [address], [address], 12/14/2022 11:17:08 12/15/19 23 12/14/2022 urina lysis , dipst ick Unknown Analyte Negati ve Not Available [facility] [address], [address], 12/14/2022 11:17:08 12/15/19 23 12/14/2022 urina lysis , dipst ick Unknown Analyte Negati ve Not Available [facility] [address], [address], 12/14/2022 11:17:08 12/15/19 23 12/14/2022 urina lysis , dipst ick Unknown Analyte Clean Catch Not Available [facility] [address], [address], 12/14/2022 11:17:08 12/15/19 23 12/14/2022 urina lysis , dipst ick Unknown Analyte Visual Not Available [facility] [address], [address], 12/14/2022 11:17:08 12/23/19 23 12/22/2022 US, retro perit oneum , compl ete [address] [address] Patien t Name: GEOVANNA wiley : 980 [...] 12:34 PM [facility] Radiology [facility] [address] [place], [address], 12/24/2022 17:47:19 Result Notes None recorded. Procedures Surgical History Date Name Laterality Status Provider Name and Address Organization Details Recorded Time 12/15/19 23 Post Void Residual; Ultrasound completed [facility] 12/14/2022 10:38:24 Appendectomy completed [facility] 12/14/2022 10:52:59 Imaging Results None recorded. Procedure Notes None recorded. Medical Equipment None Reported. Allergies Allergen ID Allergen Name Allergen Category Reaction Reaction Severity Criticality Documentation Date Start Date Code Code System Note Provider Name and Address Organization Details Recorded Time 934889 Product containin g penicilli n (product) medicatio n Not available Not available Not available 12/14/2022 93371 8001 SNOMED Mark Moses [facility] 3 10:52:48 Medications Name Sig Start Date [...] History Question Answer Notes LastModified by Organizat [employer] Details LastModified Time Tobacco Smoking Status Current Every Day Smoker Mark Lopes [facility] 12/14/2022 10:53:57 What Is Your Relationship Status? [email or web address] Information not available 12/14/2022 Sex: Unknown Functional Status Question Answer Note LastModified by Organizat ion Details LastModified Time What is your level of alcohol consumption? None [email or web address] Information not available 12/14/2022 Are you currently employed? 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 Family History Relationship Description Onset Age of this Age Resolved Age Notes LastModified by Organization Details LastModified Time Unspecified Relation Family history of malignant neoplasm colon, stomac h, lung Not available 12/14/2022 10:53:28 Unspecified Relation History of hypertension [email or web address] Not available 10:53:44 Medical History Condition Response Diabetes Y Hypertension N High Cholesterol Y Gynecological HistoryNo gynecological history recorded. Obstetrics History GPAL:G 0 P 0 0 0 0 Past Encounters Encounter ID Performer Location Encounter Start Date Encounter Closed Date Diagnosis/Indication Diagnosis SNOMED-CT Code Diagnosis ICD10 Code Diagnosis IMO Codes Diagnosis Note [id number] RAHEEM PARK MD UROLOGY [facility] [address] [place] [address] 12/14/2022 10:22:03 12/14/2022 15:50:33 Sensation as if urinary bladder still full 272877019 R39.14 Increased frequency of urination 448998303 R35.0 History of urinary tract infection 7140920647 107 Z87.440 Chronic constipation 236 548430 K59.09 Health Concerns Section Related Observation LastModified by Organization Detai ls LastModified Time None Recorded Concern Status LastModified by Organization Details LastModified Time None Recorded Advance Directives Directive None Recorded Payers Insurance Date Sequence Insurance Name Policy Number Policy Rangel Covered Member ID Rangel Member ID Guarantor Name 12/25/2022 1 [place] [id number] Geovanna Harrison [id number] Geovanna Harrison Notes Date Note Type Note Provider Name and Address Organization Details Recorded Time 12/14/2022 text/html 42 year-old white female G3, P3 sent in consultation by [...] urologic malignancy or stones. 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 RAHEEM PARK MD [address] [place], [address], [facility] 12/14/2022 15:35:41 OBGyn Episode No OBEpisode recorded.
== END 2025-04-21 23:59 | disposition home or self-care (01) ==
LOC: LAB.DROPOF 04-22 19:04
PROVIDERS: PCP Nurse Practitioner; Visit Provider Nurse Practitioner
DX: E78.5 Hyperlipidemia, unspecified (principal); E11.9 Type 2 diabetes mellitus without complications; E66.01 Morbid (severe) obesity due to excess calories; Z68.41 Body mass index [BMI] 40.0-44.9, adult; M79.644 Pain in right finger(s); R10.32 Left lower quadrant pain
CPT/HCPCS: 80053; 80061; 81001; 82043; 82570; 83036; 84550; 85651; 86038; 86140; 86225; 86235; 86431; 87086